=== PATIENT | male | born 1950 | race Caucasian/White ===

== ENCOUNTER → 2017-10-29 05:38 | Outpatient (CLI) | payer MEDICARE, SELFPAY ==
[2017-09-25 10:59] VITALS: BP 120/90; PULSE 65; RESP 16; TEMP 36.4; O2SAT 93; BMI 33.1
--- NOTE | 2017-09-25 11:05 | SDCEKG_ITS ---
Test Reason : Blood Pressure : / mmHG Vent. Rate : 062 BPM Atrial Rate : 062 BPM P-R Int : 160 ms QRS Dur : 090 ms QT Int : 464 ms P-R-T Axes : 004 -50 044 degrees QTc Int : 470 ms Normal sinus rhythm Left anterior fascicular block Abnormal ECG Confirmed by NIKITA GALVAN, GERMAIN ([id number]), multimedia editor MILLIE BLANK ([id number]) on 09/27/2017 1:29:42 PM Referred By: Rafael Canada Confirmed By:GERMAIN SHELTON MD
== END ==
PROVIDERS: Family Provider Internal Medicine; PCP Internal Medicine; Visit Provider Otolaryngology
DX: Z01.818 Encounter for other preprocedural examination (principal)

== ENCOUNTER 2018-02-26 22:37 | Inpatient (IN) | payer MEDICARE, SELFPAY ==
[2018-02-26 22:39] VITALS: BP 169/108; PULSE 96; RESP 18; TEMP 37.2; O2SAT 92; BMI 34.3
--- NOTE | 2018-02-26 22:57 | EKG12_ITS ---
Test Reason : CP Blood Pressure : / mmHG Vent. Rate : 082 BPM Atrial Rate : 082 BPM P-R Int : 152 ms QRS Dur : 090 ms QT Int : 398 ms P-R-T Axes : 065 -60 065 degrees QTc Int : 464 ms Normal sinus rhythm Left anterior fascicular block Low voltage QRS (limb leads) Abnormal ECG Confirmed by NIKITA GALVAN, GERMAIN ([id number]), restaurant expeditor MILLIE BLANK ([id number]) on 02/28/2018 1:31:42 PM Referred By: IMAN Confirmed By:GERMAIN SHELTON MD
--- NOTE | 2018-02-26 22:58 | ED.VISSUMM ---
- ER Visit Summary Date of Service: 02/26/18 Chief Complaint: Chest pain History of Present Illness: The patient is a 67 M presenting for chest pain. He states this started around 7 PM. Pain is intermittent. He states it is worsened with exertion, cough, and deep breathing. He states currently he has 0 out of 10 pain. At its worst it is 8 out of 10. He had a bronchoscopy today at [facility] per Dr. Cueva. He has a chronic cough. He has history of hypercholesterolemia. History of non-Hodgkin's lymphoma. Physical Examination: Vitals are stable. Patient is afebrile. Alert no acute distress. HEENT exam is unremarkable. Neck is supple. Lungs are diminished bilaterally. Heart is regular rate and rhythm. Abdomen is soft nontender nondistended. Extremities are unremarkable. Skin is warm and dry. No focal neurologic deficit. Remainder of exam is unremarkable. Emergency Department Course and Treatment: Patient was given aspirin. EKG is sinus rate of 82 with no acute ischemic changes. Chest x-ray shows a right-sided pneumothorax approximately 50%. CBC shows a white count of 11.3, platelets 146. Chemistries unremarkable. Troponin is negative. Patient was consented for pigtail catheter placement. Area was prepped and draped in sterile fashion. Lidocaine was used to locally anesthetize the area. Pigtail catheter was placed. Patient had improvement of his symptoms. Discussed with hospitalist for admission. Disposition: Admission Impression: Right sided Pneumothorax This note was generated with [employer] dictation software. It may contain incorrect words, spelling, and punctuation that were not noted in review of the chart prior to signing ED Disposition - Plan for ED Patient: Chief Complaint: Chest Pain Referrals: Andres Scruggs MD [Primary Care Provider] -
--- NOTE | 2018-02-26 23:00 | RAD_ITS ---
STUDY: X-RAY CHEST REASON FOR EXAM: Male, 67 years old. Shortness of breath and chest pain. TECHNIQUE: 1 view COMPARISON: None. FINDINGS: There is a right pneumothorax, 50% with substantial atelectasis of the right lung. The left lung is expanded and clear. Negative for pleural effusion. Normal size heart. Normal mediastinum and viral. Normal visualized pulmonary arteries. There is atherosclerotic calcification of the aortic arch with tortuosity. There is degenerative osteoarthritis of the bilateral shoulders. Negative for visualized rib fracture. There is no demonstrated abnormality of the visualized soft tissue structures of the upper abdomen. RAD/Chest 1 View (Portable) IMPRESSION: Acute right pneumothorax, at least 50% with substantial atelectasis of the right lung. Negative for pleural effusion. Left lung expanded and clear. The mediastinum is not substantially shifted. The right diaphragm is not flattened and the intercostal spaces are symmetric. N.B. : The above information has been verbally conveyed by Ana Lilia Luo MD to Dr. Celaya, Covering Physician, on 02/26/2018 23:24:29 (ET). Electronically Signed: Ana Lilia Luo MD at 23:24 EDT , Service support ,
--- NOTE | 2018-02-26 23:01 | ED.DCSUM_ITS ---
- ER Visit Summary Date of Service: 02/26/18 Chief Complaint: Chest pain History of Present Illness: The patient is a 67 M presenting for chest pain. He states this started around 7 PM. Pain is intermittent. He states it is worsened with exertion, cough, and deep breathing. He states currently he has 0 out of 10 pain. At its worst it is 8 out of 10. He had a bronchoscopy today at [facility] per Dr. Cueva. He has a chronic cough. He has history of hypercholesterolemia. History of non-Hodgkin's lymphoma. Physical Examination: Vitals are stable. Patient is afebrile. Alert no acute distress. HEENT exam is unremarkable. Neck is supple. Lungs are diminished bilaterally. Heart is regular rate and rhythm. Abdomen is soft nontender nondistended. Extremities are unremarkable. Skin is warm and dry. No focal neurologic deficit. Remainder of exam is unremarkable. Emergency Department Course and Treatment: Patient was given aspirin. EKG is sinus rate of 82 with no acute ischemic changes. Chest x-ray shows a right- sided pneumothorax approximately 50%. CBC shows a white count of 11.3, platelets 146. Chemistries unremarkable. Troponin is negative. Patient was consented for pigtail catheter placement. Area was prepped and draped in sterile fashion. Lidocaine was used to locally anesthetize the area. Pigtail catheter was placed. Patient had improvement of his symptoms. Discussed with hospitalist for admission. Disposition: Admission Impression: Right sided Pneumothorax This note was generated with [employer] dictation software. It may contain incorrect words, spelling, and punctuation that were not noted in review of the chart prior to signing ED Disposition - Plan for ED Patient: Chief Complaint: Chest Pain Referrals: Andres Scruggs MD [Primary Care Provider] -
[2018-02-26] MEDS: Aspirin 81 MG TAB.CHEW 324 MG PO (23:10)
[2018-02-26 23:23] VITALS: PULSE 85; RESP 34; O2SAT 94
[2018-02-27] VITALS (21 sets, daily range): BP systolic 135–177; BP diastolic 78–111; PULSE 60–81; RESP 14–23; TEMP 36.7–37; O2SAT 90–97; BMI 34.2; BMI 34.3
--- NOTE | 2018-02-27 00:30 | RAD_ITS ---
STUDY: X-RAY CHEST REASON FOR EXAM: Male, 67 years old. Chest tube placement. TECHNIQUE: Single AP portable view of the chest. COMPARISON: 02/26/2018. FINDINGS: There is a small caliber chest tube with its tip overlying the lower right lung field. There is a small right pneumothorax, which is markedly improved from previous study. The lungs are clear and expanded. There is no demonstrated pleural effusion.. Normal size heart. Normal mediastinum and viral. Normal visualized pulmonary arteries. There is atherosclerotic calcification of the aortic arch with tortuosity. Normal visualized thoracic spine. Normal visualized ribs, clavicles, and shoulders. There is no demonstrated abnormality of the visualized soft tissue structures of the upper abdomen. RAD/Chest 1 View (Portable) IMPRESSION: Status post chest tube placement, with adequate position. Small right pneumothorax, markedly improved from previous study. Electronically Signed: Ozzie Faustin MD at 1:56 EDT , Service support ,
--- NOTE | 2018-02-27 00:50 | ED.RN ---
ABRAN RN AND CALEB RN ASSISTED DR. VALERIO WITH CHEST TUBE PROCEDURE. CHEST TUBE PLACED. SECURED WITH SUTURES. VASELINE GAUZE, GAUZE 4X4'S AND TELFA TAPE. PT IN XRAY TO VERIFY PLACEMENT.
[2018-02-27 01:15] LABS: Absolute Lymphocyte Count 1.23 X10^3/ul (0.83-4.51); Absolute Neutrophil Count 8.9 X10^3/uL (2.0-7.7); Basophil# 0.02 X10^3/uL; Basophil% 0.2 % (0-1); Eosinophil# 0.37 X10^3/uL; Eosinophils% 3.3 % (0-5); Hematocrit 45.6 % (40-54); Hemoglobin 15.2 g/dl (13.0-16.5); Lymphocyte # 1.23 X10^3/ul (4.0); Lymphocyte % 10.9 % (19-41); Mean Corp Hgb Conc 33.3 g/gl (32-36); Mean Corpuscular Hgb 33.1 pg (27.0-32.0); Mean Corpuscular Volume 99.3 fL (80-94); Mean Platelet Vol. 11.9 fl (6.2-12.0); Monocyte# 0.75 X10^3/uL; Monocyte% 6.6 % (0-10); Neutrophil # 8.89 X10^3/uL (2.7-7.7); Neutrophil % 78.7 % (47-70); Platelet Count 146 K/mm3 (150-450); RBC Distribution Width CV 12.8 % (11.6-14.6); RBC Distribution Width SD 46.4 fl (35.1-43.9); Red Blood Count 4.59 M/mm3 (4.6-6.2); White Blood Count 11.3 K/mm3 (4.4-11.0)
[2018-02-27 01:16] LABS: POSITIVE COUNT NO; POSITIVE DIFFERENTIAL NO; POSITIVE MORPHOLOGY NO
[2018-02-27 01:42] LABS: Anion Gap 7 (5-15); BUN 17 mg/dL (7-18); BUN/Creat Ratio 19.9 RATIO (10-20); Calcium,Total 8.1 mg/dL (8.5-10.1); Chloride 104 mmol/L (98-107); Creatinine, Serum 0.85 mg/dL (0.70-1.30); EST Glomerular Filtration Rate 95 mL/min (>60); Est Glom Filt Rate - Afr Amer 115 mL/min (>60); Estimated Creatinine Clearance 97.92 ml/min; Glucose 96 mg/dL (74-106); Potassium 4.1 mmol/L (3.5-5.1); Sodium Level 136 mmol/L (136-145)
--- NOTE | 2018-02-27 03:30 | NURSING ---
Karthik ed rn aware pt ok for floor.
--- NOTE | 2018-02-27 03:43 | PCM.HP.STD ---
History of Present Illness Date of Admission: 02/27/18 Chief Complaint: Chest pain and increased shortness of breath ?1 day The patient is a 67 year old M with a significant history of hypothyroidism; and Hodgkin's lymphoma status post chemotherapy who presented with chest pain and increased shortness of breath ?1 day. Patient reports sustaining lung damage/scar tissue after chemotherapy with bleomycin for his Hodgkin's lymphoma. He reports chronic shortness of breath for which reason he had a bronchoscopy on the day of his presentation. A few hours after the bronchoscopy patient had increased cough above his baseline, chest pain and profuse coughing. Because of the symptoms stated above he proceeded to the emergency department where a chest x-ray showed a 50% collapse of his right lung. A chest tube was inserted at emergency department.] Past Medical History Medical History: Medical History (Last Updated 02/27/18 @ 03:51 by Jaswant Jang MD) Hodgkin's lymphoma C81.90 Hypothyroidism E03.9 Allergies bleomycin Allergy (Verified 02/26/18 22:48) Other Home Medications: Ambulatory Orders Medication Instructions Recorded Aspirin E.C. [Ecotrin] 81 mg PO DAILY@0800 09/25/17 Atorvastatin Calcium [Lipitor] 20 mg PO QHS 09/25/17 Levothyroxine [Synthroid] 25 mcg PO DAILY 09/25/17 Lives: Spouse/ Significant Other Smoking Status: Never smoker Tobacco Use: Non-smoker Alcohol: Rare Drugs: None - *Family History Maternal History Items: No pertinent history Paternal History Items: No pertinent history Review of Systems Constitutional: Denies: Chills, Fever, Weight Change Eyes: Denies: Blurred vision, Pain HEENT: Denies: Head Aches, Sinus Congestion, Sinus Drainage Cardiovascular: Reports: Chest Pain Respiratory: Reports: Cough, Shortness of Breath Gastrointestinal: Denies: Abdominal Pain, Nausea, Vomiting Genitourinary: Denies: Dysuria Musculoskeletal: Denies: Joint Pain, Joint Tenderness Skin: Denies: Rash, Wounds Neurological: Denies: Numbness, Tingling, Focal weakness Psychiatric: Denies: Anxiety, Depression, Homicidal Ideations, Suicidal Ideations Endocrine: Denies: Change in Body Habitus, Polyuria Hematologic/ Lymphatic: Denies: Easy Bruising, Easy Bleeding VTE Information - Inpt Only VTE Present on Admission: No VTE Mechan Device Prophylaxis: None VTE Pharm Prophylaxis ordered?: Yes - Physical Exam General: Alert, Oriented x3, Cooperative HEENT: Atraumatic, PERRLA, EOMI, Normocephalic Neck: Supple, No JVD, Negative Carotid Bruits Lungs: Wheezes, - - Chest tube at right side and covered with dressing. Cardiovascular: Regular rate, No murmurs Abdomen: Bowel Sounds Present, Soft, Non Tender Extremities: No clubbing Skin: No rashes, No breakdown Musculoskeletal: No Tenderness to Palpation of Joints or Extremities Lymphatic: No Cervical, Supraclavicular, or Inguinal Adenopathy Neurological: Cranial nerves II-XII grossly intact Psych/Mental Status: Normal Affect, Appropriate Vital Signs Temp Pulse Resp BP Pulse Ox 99 F 60 14 136/98 H 94 02/26/18 22:39 02/27/18 03:09 02/27/18 03:09 02/27/18 03:09 02/27/18 03:09 Assessment/Plan The patient is a 67 year old M with a significant history of hypothyroidism; and Hodgkin's lymphoma status post chemotherapy who presented with chest pain and increased shortness of breath and found to have right pneumothorax. Right pneumothorax Status post chest tube with expansion of lungs. Maintain chest tube in place at this time with low wall suction The patient was admitted for observation. Repeat chest x-ray in a.m. Chronic shortness of breath Patient reports chronic shortness of breath for which reason bronchoscopy was done. Patient reported breathing treatment has not helped in the past. Because of wheezing will prescribe DuoNeb as needed. Hypothyroidism Continue home Synthroid DVT prophylaxis subcutaneous heparin. Code Visit OBSV E&M: 28696 Initial observation care L2
[2018-02-27] MEDS: Levothyroxine 25 MCG TABLET PO (05:02)
[2018-02-27] MEDS: Ipratropium/Albuterol Sulfate 3 ML AMPUL.NEB INHALATION ×2 (05:13→19:35)
--- NOTE | 2018-02-27 08:05 | RAD_ITS ---
STUDY: X-RAY CHEST REASON FOR EXAM: Male, 67 years old. Worsening shortness of breath TECHNIQUE: 2 AP portable views, 2 views needed to include entirety of both lungs COMPARISON: Earlier this morning FINDINGS: EKG leads overlie the chest Significant increase in size of the previously noted right pneumothorax. Pneumothorax affects approximately 50% of the right hemithorax with slight [id number] midline shift. The right lung shows compressive atelectatic changes. The left lung shows chronic interstitial changes without a superimposed process and is normally expanded. Small caliber chest tube appears unchanged in position compared to the previous study. Normal size heart. Normal mediastinum and viral. Normal visualized pulmonary arteries. There is atherosclerotic calcification of the aortic arch with tortuosity. There are diffuse degenerative changes of the visualized thoracic spine. Normal visualized ribs, clavicles, and shoulders. There is no demonstrated abnormality of the visualized soft tissue structures of the upper abdomen. RAD/Chest 1 View (Portable) IMPRESSION: Significant increase in the size of a previously noted right pneumothorax. Now affects approximately 50% of the right hemithorax with slight right to left midline shift. Visualized right lung shows compressive atelectasis Left lung shows chronic interstitial changes without a superimposed process Small caliber right-sided chest tube remains in position within the right hemithorax. N.B. : The above information has been verbally conveyed by David Schwartz MD to [facility]- In-Patient RN, on 02/27/2018 09:08:41 (ET). Electronically Signed: David Schwartz MD at 9:08 EDT , Service support ,
--- NOTE | 2018-02-27 08:36 | CON.PCM_ITS ---
Reason for Consult Date of Consultation: 02/27/18 History of Present Illness: The patient is a 67 year old M who earlier today underwent a bronchoscopy for history of pulmonary fibrosis secondary to treatment for Hodgkin's lymphoma. the patient presented to [facility] emergency department last night. Chest x-ray demonstrated a significant right pneumothorax. A pneumocath was placed. post placement chest x-ray from 12:30 AM demonstrated good expansion of the lung with a small residual pneumothorax. I was consulted for management of the pneumothorax catheter. I was contacted this morning for consultation. The patient was stable. I had asked that a follow-up chest x-ray being obtained. This follow-up chest x-ray demonstrated recurrence of the pneumothorax. I presented to the bedside for evaluation and planned for replacement of the pneumocath tube. the patient has a past medical history of Hodgkin's lymphoma, obstructive sleep apnea, hyperthyroidism, hyperlipidemia. Asthma, diverticulosis and a thyroid nodule. He has pulmonary fibrosis, felt to be secondary to treatment for his Hodgkin's lymphoma.. his previous surgical history is only significant for colonoscopies, tonsillectomy as a child, ORIF of a tibial fracture, an recent bronchoscopy, along with bronchoscopy and mediastinoscopy in 2007. He notes allergies to bleomycin and dust. His medications are Synthroid, Lipitor, 81 mg aspirin and Dulera Past Medical History Medical History: Medical History (Last Updated 02/27/18 @ 03:51 by Jaswant Jang MD) Hodgkin's lymphoma C81.90 Hypothyroidism E03.9 Allergies bleomycin Allergy (Verified 02/26/18 22:48) Other Home Medications: Ambulatory Orders Medication Instructions Recorded Aspirin E.C. [Ecotrin] 81 mg PO DAILY@0800 09/25/17 Atorvastatin Calcium [Lipitor] 20 mg PO QHS 09/25/17 Levothyroxine [Synthroid] 25 mcg PO DAILY 09/25/17 Lives: Spouse/ Significant Other Smoking Status: Never smoker Tobacco Use: Non-smoker Alcohol: Rare Drugs: None - *Family History Maternal History Items: No pertinent history Paternal History Items: No pertinent history Review of Systems Constitutional: Denies: Chills, Fever, Weight Change HEENT: Denies: Head Aches, Sinus Congestion, Sinus Drainage Cardiovascular: Denies: Chest Pain, Palpitations Respiratory: Reports: Pleuritic Pain, Shortness of Breath Gastrointestinal: Denies: Abdominal Pain, Nausea, Vomiting Genitourinary: Denies: Dysuria Musculoskeletal: Denies: Joint Pain, Joint Tenderness Skin: Denies: Rash, Wounds Neurological: Denies: Numbness, Tingling, Focal weakness Psychiatric: Denies: Anxiety, Depression, Homicidal Ideations, Suicidal Ideations Hematologic/ Lymphatic: Denies: Easy Bruising, Easy Bleeding - Physical Exam General: Alert, Oriented x3 Lungs: Diminished - breath sounds at the right upper lobe and tympanic to percussion. Prior to replacement of chest tube. Post chest tube placement, symmetric breath sounds Cardiovascular: Regular rate, Regular Rhythm Abdomen: Bowel Sounds Present, Soft, Non Tender Vital Signs Temp Pulse Resp BP Pulse Ox 98.3 F 66 20 H 156/83 H 90 02/27/18 03:55 02/27/18 07:06 02/27/18 05:00 02/27/18 04:53 02/27/18 05:00 Oxygen Flow Rate (L/min) 3 Oxygen Delivery Method Nasal Cannula Weight: 117.9 kg Body Mass Index (BMI) 34.2 Intake and Output for Last 24 Hours 02/25/18 02/26/18 02/27/18 23:59 23:59 23:59 Intake Total 50 / 50 Output Total 0 / 0 Balance 50 / 50 Assessment/Plan displaced pneumocath tube-pneumocath tube replaced dictated under separate cover Postprocedure chest x-ray demonstrates good expansion of the lung. The catheter is in good location in the Pleur-evac as titling. I plan to maintain him on 20 cm water suction, at least overnight. We will place him on waterseal. If the chest x-ray looks nicely expanded in the morning. Given the fact of the patient's degree of pulmonary fibrosis and therefore likely somewhat decreased lung compliance. I would plan to leave him on waterseal for 24 hours tomorrow with plan for removal of the catheter Saturday chest x -ray still demonstrates nicely expanded lung. I will be out of town Saturday afternoon of Saturday. Dr. Broussard will cover the patient in my absence after Saturday.
[2018-02-27] MEDS: Aspirin E.C. 81 MG Tablet PO (08:44)
--- NOTE | 2018-02-27 12:26 | RAD_ITS ---
STUDY: X-RAY CHEST REASON FOR EXAM: Male, 67 years old. Shortness of breath, history of pneumothorax with chest tube adjustment TECHNIQUE: Single AP portable view of the chest. COMPARISON: Earlier today FINDINGS: EKG leads overlie the chest. Small caliber chest tube is now more prominently noted in the lower right hemithorax. The right lung has now reexpanded. Previously noted pneumothorax no longer identified. The right lung is also normally expanded with resolution of the previously noted compressive atelectasis. There are chronic interstitial changes in both lung kelly with prominent bilateral pulmonary arteries. No organized infiltrate or effusion. Normal mediastinum and viral. Normal visualized pulmonary arteries. There is atherosclerotic calcification of the aortic arch with tortuosity. There are diffuse degenerative changes of the visualized thoracic spine. Normal visualized ribs, clavicles, and shoulders. There is no demonstrated abnormality of the visualized soft tissue structures of the upper abdomen. RAD/Chest 1 View (Portable) IMPRESSION: Resolution of the previously noted right pneumothorax. Small caliber right-sided chest tube now much more conspicuous in the lower right hemithorax. There is no mediastinal shift. There is a small amount of subcutaneous emphysema. Resolution of previously described compressive atelectasis in the right lung. Both lungs are now normally expanded with chronic interstitial changes. Prominence to the proximal pulmonary arteries Degenerative bony changes Electronically Signed: David Schwartz MD at 13:11 EDT , Service support ,
--- NOTE | 2018-02-27 14:07 | CASEMGMT ---
SEE RN CM ASSESSMENT LINK. DC PLAN: Home. -No DME use per pt. Is independent, drives. also in room. Denies needs on dc. Drives, has prescription coverage. no needs identified. Young BLAKEN RN ACM
[2018-02-27] MEDS: Heparin Injection (Vial) 5,000 UNIT/ML VIAL 5000 UNIT SC ×2 (15:52→21:20)
--- NOTE | 2018-02-27 17:56 | OP.PCM_ITS ---
Report of Operation Date of Procedure: 02/27/18 Pre-Operative Diagnosis: recurrent right pneumothorax Post-Operative Diagnosis: recurrent right pneumothorax Surgery/Procedure Performed:: placement of right pneumocath metal hardener: None Type of Anesthesia:: Local Specimen's removed: none Description of Procedure: the patient was on x-ray and on clinical examination to have a recurrent right pneumothorax. The catheter was in place appeared to be in good location. It did not seem to been pulled out significantly, but there was no tidaling with breathing, and an no moisture in the tube. the patient was consented. The old pneumocath was removed with traction and the suture cut. The right thoracic area was prepped and draped in the usual fashion with chlorhexidine/DuraPrep. local anesthetic 1% lidocaine was injected in the skin and deep riding over the rib just posterior to the previously placed catheter at about the mid axillary line level of the nipple. A pneumocath was then inserted over needle into the thoracic space with venting of air. The catheter was slid off the needle attached to the tubing and secured to a Pleur-evac. The site was covered with an OpSite. All joints were taped and the Pleur-evac taped to his hip. There was initial good doubling through the Pleur-evac with the patient having pruritic change when the lung was fully expanded. Postprocedure chest x-ray was obtained which demonstrated good expansion of the lung and good positioning of the catheter.
[2018-02-27] MEDS: Metoprolol Tartrate 5 MG/5 ML Vial IV (18:26)
[2018-02-27] MEDS: Atorvastatin Calcium 20 MG Tablet PO (21:21)
[2018-02-28] VITALS (19 sets, daily range): BP systolic 120–160; BP diastolic 67–95; PULSE 52–85; RESP 16–20; TEMP 36.2–37.2; O2SAT 93–99; BMI 34.2
--- NOTE | 2018-02-28 05:15 | RAD_ITS ---
STUDY: X-RAY CHEST REASON FOR EXAM: Male, 67 years old. Chest pain, history of pneumothorax with chest tube TECHNIQUE: Single AP portable view of the chest. COMPARISON: Yesterday FINDINGS: Although the small caliber chest tube remains in position within the inferior right hemithorax there has been a dramatic increase in size of the previously noted right pneumothorax. On the previous study there was no visualized pneumothorax but on the current study pneumothorax has returned and affects approximately 25% of the right hemithorax. There is no mediastinal shift. There has been increase in the amount of subcutaneous emphysema. Lungs are otherwise clear. Normal size heart. Normal mediastinum and viral. Normal visualized pulmonary arteries. Normal visualized aortic arch and descending thoracic aorta. Normal visualized thoracic spine. Normal visualized ribs, clavicles, and shoulders. There is no demonstrated abnormality of the visualized soft tissue structures of the upper abdomen. RAD/Chest 1 View (Portable) IMPRESSION: Previous noted right pneumothorax has returned. It affects approximately 25% of the right hemithorax without mediastinal shift. Small caliber chest tube is still seen in the inferior right hemithorax. Increase in amount of subcutaneous emphysema in the right chest wall suggests air leak Lung kelly are otherwise clear. N.B. : The above information has been verbally conveyed by David Schwartz MD to [facility]- In-Patient RN, on 02/28/2018 07:56:18 (ET). Electronically Signed: David Schwartz MD at 7:56 EDT , Service support ,
[2018-02-28] MEDS: Levothyroxine 25 MCG TABLET PO (05:36)
[2018-02-28] MEDS: Heparin Injection (Vial) 5,000 UNIT/ML VIAL 5000 UNIT SC (05:36)
[2018-02-28] MEDS: Ipratropium/Albuterol Sulfate 3 ML AMPUL.NEB INHALATION ×2 (07:24→19:56)
--- NOTE | 2018-02-28 07:55 | PCM.PROGNOTE ---
Subjective: Chief complaint: Follow-up after admission for right pneumothorax. Patient seen and examined. No acute events overnight. He denies any symptoms this morning. Denied chest pain or shortness of breath. Denied abdominal pain, nausea vomiting. His blood pressure has been on the higher side, other vital signs are stable, pulse ox is maintained on 3 L of oxygen. - Physical Exam General: Alert, Oriented x3, Cooperative, No apparent distress HEENT: Atraumatic, PERRLA, EOMI, Normocephalic Oral: Moist Mucosa, No Gingival or Mucosal Lesions/ Ulcerations Neck: Supple, No JVD, Negative Carotid Bruits, Trachea Midline, Thyroid Normal Size and Texture Lungs: Clear to auscultation, No rhonchi, No wheeze, No rales, Diminished, - - Decreased breath sounds on the right lung, otherwise clear. Cardiovascular: Regular rate, Regular Rhythm, Normal S1, Normal S2, PMI Normal Abdomen: Bowel Sounds Present, Soft, Non Tender, Non-Distended, No Hepato-splenomegaly Extremities: No clubbing, No cyanosis, No edema Skin: No rashes, No breakdown Lymphatic: No Cervical, Supraclavicular, or Inguinal Adenopathy Neurological: Cranial nerves II-XII grossly intact, Motor Exam 5/5 strength throughout Psych/Mental Status: Normal Affect, Appropriate, Alert and oriented to time, place, person, mood and affect Vital Signs Temp Pulse Resp BP Pulse Ox 99.0 F 64 20 H 156/90 H 94 02/28/18 03:41 02/28/18 06:56 02/28/18 03:41 02/28/18 03:41 02/28/18 03:41 Oxygen Flow Rate (L/min) 3 Oxygen Delivery Method Nasal Cannula Weight: 259 lb 14.8 oz Body Mass Index (BMI) 34.2 Intake and Output for Last 24 Hours 02/26/18 02/27/18 02/28/18 23:59 23:59 23:59 Intake Total 1230 / 1230 150 / 150 Output Total 925 / 925 625 / 625 Balance 305 / 305 -475 / -475 Medical Necessity - Tobacco Use Smoking Status: Never smoker Tobacco Use: Non-smoker Assessment/Plan This is a 58 years old male patient presented to the emergency room because of chest pain and cough on the same day 1 he had bronchoscopy done for evaluation for pulmonary fibrosis and he was found to have right-sided pneumothorax. #1 right-sided pneumothorax: Status post reinsertion of chest you that was displaced. Chest tube was replaced yesterday and chest x-ray afterwards revealed complete resolution of the pneumothorax. Chest x-ray from this morning revealed recurrent pneumothorax. Patient's respiratory status is stable, pulse ox is maintained on 3 L. Blood pressure slightly elevated, otherwise vital signs are stable. General surgery in the case. #2 chronic shortness of breath/cough: Patient has been going under evaluation for those symptoms as outpatient including bronchoscopy which was done on the day of admission. At this time, respiratory status is stable, patient requiring oxygen. Patient will need to follow-up with his wet suit gluer as outpatient. #3 hypothyroidism: Continue levothyroxine. #4 hyperlipidemia: Continue statins. #5 Hodgkin's lymphoma: Status post chemotherapy. Stable at this time. #6 DVT prophylaxis: Subcu heparin. This note was generated with [employer] dictation software. It may contain incorrect words, spelling, and punctuation that were not noted in checking the note before signing.
--- NOTE | 2018-02-28 08:02 | PN_ITS ---
Subjective: Chief complaint: Follow-up after admission for right pneumothorax. Patient seen and examined. No acute events overnight. He denies any symptoms this morning. Denied chest pain or shortness of breath. Denied abdominal pain , nausea vomiting. His blood pressure has been on the higher side, other vital signs are stable, pulse ox is maintained on 3 L of oxygen. - Physical Exam General: Alert, Oriented x3, Cooperative, No apparent distress HEENT: Atraumatic, PERRLA, EOMI, Normocephalic Oral: Moist Mucosa, No Gingival or Mucosal Lesions/ Ulcerations Neck: Supple, No JVD, Negative Carotid Bruits, Trachea Midline, Thyroid Normal Size and Texture Lungs: Clear to auscultation, No rhonchi, No wheeze, No rales, Diminished, - - Decreased breath sounds on the right lung, otherwise clear. Cardiovascular: Regular rate, Regular Rhythm, Normal S1, Normal S2, PMI Normal Abdomen: Bowel Sounds Present, Soft, Non Tender, Non-Distended, No Hepato- splenomegaly Extremities: No clubbing, No cyanosis, No edema Skin: No rashes, No breakdown Lymphatic: No Cervical, Supraclavicular, or Inguinal Adenopathy Neurological: Cranial nerves II-XII grossly intact, Motor Exam 5/5 strength throughout Psych/Mental Status: Normal Affect, Appropriate, Alert and oriented to time, place, person, mood and affect Vital Signs Temp Pulse Resp BP Pulse Ox 99.0 F 64 20 H 156/90 H 94 02/28/18 03:41 02/28/18 06:56 02/28/18 03:41 02/28/18 03:41 02/28/18 03:41 Oxygen Flow Rate (L/min) 3 Oxygen Delivery Method Nasal Cannula Weight: 259 lb 14.8 oz Body Mass Index (BMI) 34.2 Intake and Output for Last 24 Hours 02/26/18 02/27/18 02/28/18 23:59 23:59 23:59 Intake Total 1230 / 1230 150 / 150 Output Total 925 / 925 625 / 625 Balance 305 / 305 -475 / -475 Medical Necessity - Tobacco Use Smoking Status: Never smoker Tobacco Use: Non-smoker Assessment/Plan This is a 58 years old male patient presented to the emergency room because of chest pain and cough on the same day 1 he had bronchoscopy done for evaluation for pulmonary fibrosis and he was found to have right-sided pneumothorax. #1 right-sided pneumothorax: Status post reinsertion of chest you that was displaced. Chest tube was replaced yesterday and chest x-ray afterwards revealed complete resolution of the pneumothorax. Chest x-ray from this morning revealed recurrent pneumothorax. Patient's respiratory status is stable , pulse ox is maintained on 3 L. Blood pressure slightly elevated, otherwise vital signs are stable. General surgery in the case. #2 chronic shortness of breath/cough: Patient has been going under evaluation for those symptoms as outpatient including bronchoscopy which was done on the day of admission. At this time, respiratory status is stable, patient requiring oxygen. 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 #3 hypothyroidism: Continue levothyroxine. #4 hyperlipidemia: Continue statins. #5 Hodgkin's lymphoma: Status post chemotherapy. Stable at this time. #6 DVT prophylaxis: Subcu heparin. This note was generated with [employer] dictation software. It may contain incorrect words, spelling, and punctuation that were not noted in checking the note before signing.
--- NOTE | 2018-02-28 08:04 | PCM.PN.SRG ---
Subjective: no complaints - Physical Exam General: Alert, Oriented x3 Lungs: Diminished - right apex, - - CT without tidaling - pneumocath disconnected - blood clot aspirated from catheter - bubbling in pleuravac again Vital Signs Temp Pulse Resp BP Pulse Ox 99.0 F 64 20 H 156/90 H 94 02/28/18 03:41 02/28/18 06:56 02/28/18 03:41 02/28/18 03:41 02/28/18 03:41 Oxygen Flow Rate (L/min) 3 Oxygen Delivery Method Nasal Cannula Weight: 117.9 kg Body Mass Index (BMI) 34.2 Intake and Output for Last 24 Hours 02/26/18 02/27/18 02/28/18 23:59 23:59 23:59 Intake Total 1230 / 1230 150 / 150 Output Total 925 / 925 625 / 625 Balance 305 / 305 -475 / -475 Medical Necessity - Tobacco Use Smoking Status: Never smoker Tobacco Use: Non-smoker Assessment/Plan displaced pneumocath tube-pneumocath tube replaced dictated under separate cover Postprocedure chest x-ray demonstrates good expansion of the lung. The catheter is in good location in the Pleur-evac as titling. I plan to maintain him on 20 cm water suction, at least overnight. This morning. CXR again partial PTX. catheter with clot - seeming to function again and improved breath sounds. Will plan for CXR at 8:30 - if not completed expanded, will take to OR for chest tube placement.
[2018-02-28] MEDS: 0.9% NaCl Peripheral Flush Adult/Peds IV ×3 (08:16→21:51)
--- NOTE | 2018-02-28 08:35 | RAD_ITS ---
STUDY: X-RAY CHEST REASON FOR EXAM: Male, 67 years old. Chest pain, history of pneumothorax and repositioning of chest tube. TECHNIQUE: Single AP portable view of the chest. COMPARISON: Earlier today FINDINGS: EKG leads overlie the chest. Since the previous study, there has been placement of another small caliber chest tube into the right hemithorax. The tip of this chest tube is noted in the upper aspect of the right hemithorax. The previously described pneumothorax has decreased in size since the previous study but still occupies approximately 15% of the right hemithorax. There is no mediastinal shift. Stable appearance of subcutaneous emphysema in the right chest wall. Right lung now shows some compressive atelectasis left lung is clear. There is no demonstrated pleural abnormality. Normal size heart. Normal mediastinum and viral. Normal visualized pulmonary arteries. Normal visualized aortic arch and descending thoracic aorta. Normal visualized thoracic spine. Normal visualized ribs, clavicles, and shoulders. There is no demonstrated abnormality of the visualized soft tissue structures of the upper abdomen. RAD/Chest 1 View (Portable) IMPRESSION: Despite the presence of a new small caliber chest tube in the right hemithorax there remains a right pneumothorax. The pneumothorax has diminished since the previous study, it now occupies approximately 15% of the right hemithorax without mediastinal shift. Compressive atelectatic changes noted in the right lung since the previous study Left lung is clear. Electronically Signed: David Schwartz MD at 9:23 EDT , Service support ,
--- NOTE | 2018-02-28 10:05 | NURSING ---
Report called to PRISCA Bolden. Patient off floor for right chest tube insertion. Aware of previous reaction to belomycin. Also aware that patient had 5000 units of heparin this AM. Dr. Stroud also aware. Will monitor for patient return.
--- NOTE | 2018-02-28 11:20 | PCM.OPRPT ---
Report of Operation Date of Procedure: 02/27/18 Pre-Operative Diagnosis: recurrent right pneumothorax Post-Operative Diagnosis: recurrent right pneumothorax Surgery/Procedure Performed:: placement of right chest tube section 8 property manager: None Type of Anesthesia:: Local MAC Anesthesiologist: Teddy Duncan ASA3 Specimen's removed: none Estimated Blood Loss (mL): MINIMAL Fluids Replaced: 300 Description of Procedure: sign in was performed verifing patient, site, planned procedure. The old pneumocath was removed with traction. The right thoracic area was prepped and draped in the usual fashion with chlorhexidine/DuraPrep. local anesthetic 1% lidocaine was injected in the skin and deep riding over the rib at about the mid axillary line level of the nipple. THe thoracic space was entered with a freddy. a 28F chest tube was placed under direct visualization and inserted to 18cm. The chest tube was secured to a Pleur-evac. THe skin incision was closted and the tube secureed with an 0 neuralon. The site was covered with an OpSite. All joints were taped and the Pleur-evac taped to his hip. The patient was brought to recovery in stable condition. Postprocedure chest x-ray was obtained which demonstrated good expansion of the lung and good positioning of the catheter. BAL from 02/26 in [place] - normal keisha 2000 CFU - Admit VTE Documentation VTE Present on Admission: No VTE Mechan Device Prophylaxis: SCD's
--- NOTE | 2018-02-28 11:40 | RAD_ITS ---
STUDY: X-RAY CHEST REASON FOR EXAM: Male, 67 years old. Shortness of breath, pneumothorax, chest tube placement TECHNIQUE: Single AP portable view of the chest. COMPARISON: Earlier today FINDINGS: EKG leads overlie the chest. Since the previous study, a large caliber chest tube is now been placed into the right hemithorax. Tip projects over the thoracic spine. Previous noted right pneumothorax has been reduced. There is no pneumothorax noted on the current study, there is no mediastinal shift. Chronic changes noted in both lung kelly. No organized infiltrate or effusion. Stable subcutaneous emphysema in the right chest wall. Normal size heart. Normal mediastinum and viral. Normal visualized pulmonary arteries. There is atherosclerotic calcification of the aortic arch with tortuosity. There are diffuse degenerative changes of the visualized thoracic spine. Normal visualized ribs, clavicles, and shoulders. There is no demonstrated abnormality of the visualized soft tissue structures of the upper abdomen. RAD/Chest 1 View (Portable) IMPRESSION: Previously noted right pneumothorax has been reduced after placement of a large caliber chest tube into the right hemithorax. Chronic interstitial changes in both lung kelly without a superimposed infiltrate or effusion. There is no mediastinal shift. Stable subcutaneous emphysema Electronically Signed: David Schwartz MD at 12:16 EDT , Service support ,
--- NOTE | 2018-02-28 12:27 | CT_ITS ---
STUDY: CT CHEST WITHOUT CONTRAST REASON FOR EXAM: Male, 67 years old. Chest pain, history of recurrent pneumothorax after bronchoscopy. RADIATION DOSAGE (If Supplied By Facility): CTDIvol = ( 20.00 ) mGy, DLP = ( 888.66 ) mGycm TECHNIQUE: Transaxial imaging was performed without the administration of intravenous contrast material. Multiplanar coronal and sagittal images were reformatted. Individualized dose optimization techniques were used for this CT. COMPARISON: Multiple recent chest x-rays FINDINGS: Lung windows show a very tiny right apical pneumothorax after placement of a large caliber chest tube into the right hemithorax. The chest tube is anteriorly and abutting the anterior mediastinum. There are chronic interstitial changes in the right lung with nonspecific pleural thickening there is a small right pleural effusion and associated atelectasis. The left lung shows chronic interstitial changes. There is diffuse subcutaneous emphysema in the right chest and neck. Soft tissue windows show normal-appearing thyroid gland. There are scattered subcentimeter axillary and mediastinal lymph nodes. Axial images 142 through 157 suggests air within the main pulmonary artery. Lytic cuts through the upper abdomen do not show a suspicious abnormality. CT/Chest without Contrast IMPRESSION: Very tiny right pneumothorax after a large caliber chest tube placement into the right hemithorax. Lung kelly show chronic interstitial changes in both lung kelly with nonspecific pleural thickening, small right pleural effusion with associated atelectasis. Extensive subcutaneous emphysema in the right chest both anteriorly and posteriorly extending into the neck Axial images 142 through 157 suggest air within the main pulmonary artery Degenerative bony changes Electronically Signed: David Schwartz MD at 13:10 EDT , Service support ,
[2018-02-28] MEDS: oxyCODONE 5 MG Tablet PO ×2 (15:39→21:44)
[2018-02-28] MEDS: Morphine 2 MG/ML Syringe 1 MG IV ×2 (17:02→21:48)
[2018-02-28] MEDS: Atorvastatin Calcium 20 MG Tablet PO (21:39)
[2018-03-01] VITALS (11 sets, daily range): BP systolic 143–161; BP diastolic 72–85; PULSE 61–72; RESP 16–18; TEMP 36.8–37; O2SAT 92–97
[2018-03-01] MEDS: Morphine 2 MG/ML Syringe 1 MG IV ×4 (01:59→20:43)
[2018-03-01] MEDS: 0.9% NaCl Peripheral Flush Adult/Peds IV ×5 (01:59→20:45)
[2018-03-01] MEDS: Levothyroxine 25 MCG TABLET PO (05:49)
[2018-03-01 06:00] LABS: Absolute Lymphocyte Count 1.31 X10^3/ul (0.83-4.51); Absolute Neutrophil Count 6.4 X10^3/uL (2.0-7.7); Basophil# 0.01 X10^3/uL; Basophil% 0.1 % (0-1); Eosinophil# 0.26 X10^3/uL; Hematocrit 45.7 % (40-54); Hemoglobin 14.7 g/dl (13.0-16.5); Lymphocyte # 1.31 X10^3/ul (4.0); Mean Corp Hgb Conc 32.2 g/gl (32-36); Mean Corpuscular Hgb 32.6 pg (27.0-32.0); Mean Corpuscular Volume 101.3 fL (80-94); Mean Platelet Vol. 12.2 fl (6.2-12.0); Monocyte# 0.72 X10^3/uL; Monocyte% 8.2 % (0-10); Neutrophil # 6.44 X10^3/uL (2.7-7.7); Neutrophil % 73.5 % (47-70); Platelet Count 131 K/mm3 (150-450); RBC Distribution Width SD 47.8 fl (35.1-43.9); Red Blood Count 4.51 M/mm3 (4.6-6.2); White Blood Count 8.8 K/mm3 (4.4-11.0)
[2018-03-01 06:11] LABS: Anion Gap 6 (5-15); BUN 18 mg/dL (7-18); BUN/Creat Ratio 23.8 RATIO (10-20); Calcium,Total 8.4 mg/dL (8.5-10.1); Chloride 105 mmol/L (98-107); Creatinine, Serum 0.76 mg/dL (0.70-1.30); EST Glomerular Filtration Rate 110 mL/min (>60); Est Glom Filt Rate - Afr Amer 133 mL/min (>60); Estimated Creatinine Clearance 109.51 ml/min; Glucose 115 mg/dL (74-106); Potassium 4.2 mmol/L (3.5-5.1); Sodium Level 140 mmol/L (136-145)
[2018-03-01 06:25] LABS: POSITIVE COUNT NO; POSITIVE DIFFERENTIAL NO; POSITIVE MORPHOLOGY NO
--- NOTE | 2018-03-01 06:25 | RAD_ITS ---
STUDY: X-RAY CHEST REASON FOR EXAM: Male, 67 years old. Follow-up pneumothorax TECHNIQUE: Single AP portable view of the chest. COMPARISON: 02/28/2018 FINDINGS: The right-sided chest tube is placed with the tip in medial aspect of the right anterior chest with the tip. There is a great deal of right side subcutaneous soft tissue edema. There is a persistent right apical pneumothorax which measured from the first rib to the top of the partially collapsed lung measures 2 cm. There is bilateral peripheral fibrotic change. There is mild cardiac enlargement. There is an enlarged appearance of the right hilum. Normal visualized pulmonary arteries. Normal visualized aortic arch and descending thoracic aorta. Normal visualized thoracic spine. Normal visualized ribs, clavicles, and shoulders. There is no demonstrated abnormality of the visualized soft tissue structures of the upper abdomen. RAD/Chest 1 View (Portable) IMPRESSION: The right-sided chest tube is overlying the right hilum/mediastinum. Persistent right apical pneumothorax. Right-sided subcutaneous gas. Prominence of the right hilum is likely associated with vascular prominence mild enlargement of the pulmonary artery. There is minimal right lower lobe atelectasis. Electronically Signed: Cleo Zamarripa MD at 8:34 EDT Tel , Service support ,
[2018-03-01] MEDS: Ipratropium/Albuterol Sulfate 3 ML AMPUL.NEB INHALATION ×2 (07:25→20:09)
--- NOTE | 2018-03-01 07:41 | PCM.PROGNOTE ---
Subjective: Chief complaint: Follow-up after admission for recurrent right pneumothorax. Patient seen and examined. No acute events overnight. Reported improvement of his shortness of breath and he is down to 2 L of oxygen. Complained of right lateral chest pain but pain medication is working. His vital signs are stable. Pulse ox is maintained on 2 L of oxygen. - Physical Exam General: Alert, Oriented x3, Cooperative, No apparent distress HEENT: Atraumatic, PERRLA, EOMI, Normocephalic Oral: Moist Mucosa, No Gingival or Mucosal Lesions/ Ulcerations Neck: Supple, No JVD, Negative Carotid Bruits, Trachea Midline, Thyroid Normal Size and Texture Lungs: No rhonchi, No wheeze, No rales, Diminished, - - Demonstrate sounds on the right lung, otherwise clear. Cardiovascular: Regular rate, Regular Rhythm, Normal S1, Normal S2, No murmurs Abdomen: Bowel Sounds Present, Soft, Non Tender, Non-Distended, No Hepato-splenomegaly Extremities: No clubbing, No cyanosis, No edema Skin: No rashes, No breakdown Lymphatic: No Cervical, Supraclavicular, or Inguinal Adenopathy Neurological: Cranial nerves II-XII grossly intact, Motor Exam 5/5 strength throughout Psych/Mental Status: Normal Affect, Appropriate Vital Signs Temp Pulse Resp BP Pulse Ox 98.2 F 62 18 144/77 H 95 03/01/18 03:00 03/01/18 03:00 03/01/18 03:00 03/01/18 03:00 03/01/18 03:00 Oxygen Flow Rate (L/min) 2 Oxygen Delivery Method Nasal Cannula Weight: 259 lb 14.8 oz Body Mass Index (BMI) 34.2 Intake and Output for Last 24 Hours 02/27/18 02/28/18 03/01/18 23:59 23:59 23:59 Intake Total 1230 / 1230 1650 / 1650 Output Total 925 / 925 1825 / 1825 265 / 265 Balance 305 / 305 -175 / -175 -265 / -265 Laboratory Tests Past 24 Hrs 03/01/18 03/01/18 05:26 05:26 WBC 8.8 RBC 4.51 L Hgb 14.7 Hct 45.7 MCV 101.3 H MCH 32.6 H MCHC 32.2 RDW 13.0 RDW Differential 47.8 H Plt Count 131 L MPV 12.2 H Immature Gran % (Auto) 0.200 Neut % (Auto) 73.5 H Lymph % (Auto) 15.0 L [place] % (Auto) 8.2 Eos % (Auto) 3.0 Baso % (Auto) 0.1 Absolute Neuts (auto) 6.4 Absolute Lymphs (auto) 1.31 Total Counted Not Reportable Sodium 140 Potassium 4.2 Chloride 105 Carbon Dioxide 29.0 Anion Gap 6 BUN 18 Creatinine 0.76 Estim Creat Clear Calc 109.51 Est GFR (MDRD) Af Amer 133 Est GFR (MDRD) Non-Af 110 BUN/Creatinine Ratio 23.8 H Glucose 115 H Calcium 8.4 L Medical Necessity - Tobacco Use Smoking Status: Never smoker Tobacco Use: Non-smoker Assessment/Plan This is a 58 years old male patient presented to the emergency room because of chest pain and cough on the same day 1 he had bronchoscopy done for evaluation for pulmonary fibrosis and he was found to have right-sided pneumothorax. #1 Recurrent right-sided pneumothorax: Status post insertion of chest you. Initially, pneumocath placed but pneumothorax recurred. His vital signs are stable, respiratory status is stable. Pulse ox is maintained on 2 L of oxygen. Repeat chest x-ray from today revealed full expansion of the right lung. CT scan chest without contrast done yesterday and revealed very tiny right pneumothorax, small right pleural effusion and extensive right chest subcutaneous emphysema. General surgery on the case. Plan to continue same treatment. #2 chronic shortness of breath/cough: Patient has been going under evaluation for those symptoms as outpatient including bronchoscopy which was done on the day of admission. At this time, respiratory status is stable, patient requiring oxygen at 2 L. Patient will need to follow-up with his shaft sinker as outpatient. #3 hypothyroidism: Continue levothyroxine. #4 hyperlipidemia: Continue statins. #5 Hodgkin's lymphoma: Status post chemotherapy. Stable at this time. #6 DVT prophylaxis: Subcu heparin. This note was generated with [employer] dictation software. It may contain incorrect words, spelling, and punctuation that were not noted in checking the note before signing. Code Visit Inpatient E&M: 20269 Subs Hosp L2
--- NOTE | 2018-03-01 07:46 | PN_ITS ---
Subjective: Chief complaint: Follow-up after admission for recurrent right pneumothorax. Patient seen and examined. No acute events overnight. Reported improvement of his shortness of breath and he is down to 2 L of oxygen. Complained of right lateral chest pain but pain medication is working. His vital signs are stable. Pulse ox is maintained on 2 L of oxygen. - Physical Exam General: Alert, Oriented x3, Cooperative, No apparent distress HEENT: Atraumatic, PERRLA, EOMI, Normocephalic Oral: Moist Mucosa, No Gingival or Mucosal Lesions/ Ulcerations Neck: Supple, No JVD, Negative Carotid Bruits, Trachea Midline, Thyroid Normal Size and Texture Lungs: No rhonchi, No wheeze, No rales, Diminished, - - Demonstrate sounds on the right lung, otherwise clear. Cardiovascular: Regular rate, Regular Rhythm, Normal S1, Normal S2, No murmurs Abdomen: Bowel Sounds Present, Soft, Non Tender, Non-Distended, No Hepato- splenomegaly Extremities: No clubbing, No cyanosis, No edema Skin: No rashes, No breakdown Lymphatic: No Cervical, Supraclavicular, or Inguinal Adenopathy Neurological: Cranial nerves II-XII grossly intact, Motor Exam 5/5 strength throughout Psych/Mental Status: Normal Affect, Appropriate Vital Signs Temp Pulse Resp BP Pulse Ox 98.2 F 62 18 144/77 H 95 03/01/18 03:00 03/01/18 03:00 03/01/18 03:00 03/01/18 03:00 03/01/18 03:00 Oxygen Flow Rate (L/min) 2 Oxygen Delivery Method Nasal Cannula Weight: 259 lb 14.8 oz Body Mass Index (BMI) 34.2 Intake and Output for Last 24 Hours 02/27/18 02/28/18 03/01/18 23:59 23:59 23:59 Intake Total 1230 / 1230 1650 / 1650 Output Total 925 / 925 1825 / 1825 265 / 265 Balance 305 / 305 -175 / -175 -265 / -265 Laboratory Tests Past 24 Hrs 03/01/18 03/01/18 05:26 05:26 WBC 8.8 RBC 4.51 L Hgb 14.7 Hct 45.7 MCV 101.3 H MCH 32.6 H MCHC 32.2 RDW 13.0 RDW Differential 47.8 H Plt Count 131 L MPV 12.2 H Immature Gran % (Auto) 0.200 Neut % (Auto) 73.5 H Lymph % (Auto) 15.0 L [place] % (Auto) 8.2 Eos % (Auto) 3.0 Baso % (Auto) 0.1 Absolute Neuts (auto) 6.4 Absolute Lymphs (auto) 1.31 Total Counted Not Reportable Sodium 140 Potassium 4.2 Chloride 105 Carbon Dioxide 29.0 Anion Gap 6 BUN 18 Creatinine 0.76 Estim Creat Clear Calc 109.51 Est GFR (MDRD) Af Amer 133 Est GFR (MDRD) Non-Af 110 BUN/Creatinine Ratio 23.8 H Glucose 115 H Calcium 8.4 L Medical Necessity - Tobacco Use Smoking Status: Never smoker Tobacco Use: Non-smoker Assessment/Plan This is a 58 years old male patient presented to the emergency room because of chest pain and cough on the same day 1 he had bronchoscopy done for evaluation for pulmonary fibrosis and he was found to have right-sided pneumothorax. #1 Recurrent right-sided pneumothorax: Status post insertion of chest you. Initially, pneumocath placed but pneumothorax recurred. His vital signs are stable, respiratory status is stable. Pulse ox is maintained on 2 L of oxygen. Repeat chest x-ray from today revealed full expansion of the right lung. CT scan chest without contrast done yesterday and revealed very tiny right pneumothorax, small right pleural effusion and extensive right chest subcutaneous emphysema. General surgery on the case. Plan to continue same treatment. #2 chronic shortness of breath/cough: Patient has been going under evaluation for those symptoms as outpatient including bronchoscopy which was done on the day of admission. At this time, respiratory status is stable, patient requiring oxygen at 2 L. 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 #3 hypothyroidism: Continue levothyroxine. #4 hyperlipidemia: Continue statins. #5 Hodgkin's lymphoma: Status post chemotherapy. Stable at this time. #6 DVT prophylaxis: Subcu heparin. This note was generated with [employer] dictation software. It may contain incorrect words, spelling, and punctuation that were not noted in checking the note before signing. Code Visit Inpatient E&M: 17933 Subs Hosp L2
[2018-03-01] MEDS: Heparin Injection (Vial) 5,000 UNIT/ML VIAL 5000 UNIT SC ×2 (08:39→21:33)
[2018-03-01] MEDS: Aspirin E.C. 81 MG Tablet PO (08:39)
--- NOTE | 2018-03-01 09:58 | PCM.PN.SRG ---
Subjective: patient complaint of cough, complaint of pain with deep breath - Physical Exam General: Alert Oral: Moist Mucosa Lungs: Normal air movement, Diminished Vital Signs Temp Pulse Resp BP Pulse Ox 98.6 F 63 17 143/83 H 92 03/01/18 08:17 03/01/18 08:17 03/01/18 08:17 03/01/18 08:17 03/01/18 08:17 Oxygen Flow Rate (L/min) 2 Oxygen Delivery Method Nasal Cannula Weight: 117.9 kg Body Mass Index (BMI) 34.2 Intake and Output for Last 24 Hours 02/27/18 02/28/18 03/01/18 23:59 23:59 23:59 Intake Total 1230 / 1230 1650 / 1650 Output Total 925 / 925 1825 / 1825 265 / 265 Balance 305 / 305 -175 / -175 -265 / -265 Laboratory Tests Past 24 Hrs 03/01/18 03/01/18 05:26 05:26 WBC 8.8 RBC 4.51 L Hgb 14.7 Hct 45.7 MCV 101.3 H MCH 32.6 H MCHC 32.2 RDW 13.0 RDW Differential 47.8 H Plt Count 131 L MPV 12.2 H Immature Gran % (Auto) 0.200 Neut % (Auto) 73.5 H Lymph % (Auto) 15.0 L [place] % (Auto) 8.2 Eos % (Auto) 3.0 Baso % (Auto) 0.1 Absolute Neuts (auto) 6.4 Absolute Lymphs (auto) 1.31 Total Counted Not Reportable Sodium 140 Potassium 4.2 Chloride 105 Carbon Dioxide 29.0 Anion Gap 6 BUN 18 Creatinine 0.76 Estim Creat Clear Calc 109.51 Est GFR (MDRD) Af Amer 133 Est GFR (MDRD) Non-Af 110 BUN/Creatinine Ratio 23.8 H Glucose 115 H Calcium 8.4 L Medical Necessity - Tobacco Use Smoking Status: Never smoker Tobacco Use: Non-smoker Assessment/Plan Impression: s/p right chest tube placement, for right pneumothorax after bronch Plan: continue CT suction through the weekend, encourage incentive spirometry will then trial water seal on Saturday and check CXR, if lung still drops - patient may require VATS patient is limited in ambulation, since the chest tubing is connected to wall suction - I recommended walking by the bedside
[2018-03-01] MEDS: oxyCODONE 5 MG Tablet PO ×2 (13:44→21:16)
[2018-03-01] MEDS: Acetaminophen 325 MG Tablet 650 MG PO (19:33)
[2018-03-01] MEDS: Atorvastatin Calcium 20 MG Tablet PO (21:33)
[2018-03-02] VITALS (13 sets, daily range): BP systolic 125–166; BP diastolic 68–97; PULSE 62–80; RESP 17–18; TEMP 36.8–37.3; O2SAT 94–97
[2018-03-02] MEDS: 0.9% NaCl Peripheral Flush Adult/Peds IV ×8 (02:06→23:17)
[2018-03-02] MEDS: Morphine 2 MG/ML Syringe IV ×2 (02:06→06:01)
[2018-03-02] MEDS: oxyCODONE 5 MG Tablet PO ×3 (03:33→19:37)
[2018-03-02] MEDS: Levothyroxine 25 MCG TABLET PO (06:07)
--- NOTE | 2018-03-02 08:08 | PN_ITS ---
Subjective: Chief complaint: Follow-up after admission for recurrent right pneumothorax. Patient seen and examined. No acute events overnight. This morning, he complains of right lateral chest pain, sharp pain, 5 out of 10 in severity, aggravated by movement and taking a deep breath. He mentioned that his breathing is fine. Denied fever or chills. He states that morphine and OxyIR is not working well. His blood pressure slightly elevated, other vital signs are stable. - Physical Exam General: Alert, Oriented x3, Cooperative, - - He is in moderate pain. HEENT: Atraumatic, PERRLA, EOMI, Normocephalic Oral: Moist Mucosa, No Gingival or Mucosal Lesions/ Ulcerations Neck: Supple, No JVD, Negative Carotid Bruits, Trachea Midline, Thyroid Normal Size and Texture Lungs: Clear to auscultation, No rhonchi, No wheeze, No rales, Diminished Cardiovascular: Regular rate, Regular Rhythm, Normal S1, Normal S2, No murmurs Abdomen: Bowel Sounds Present, Soft, Non Tender, Non-Distended, No Hepato- splenomegaly Extremities: No clubbing, No cyanosis, No edema Skin: No rashes, No breakdown Lymphatic: No Cervical, Supraclavicular, or Inguinal Adenopathy Neurological: Cranial nerves II-XII grossly intact, Motor Exam 5/5 strength throughout Psych/Mental Status: Normal Affect, Appropriate, Alert and oriented to time, place, person, mood and affect Vital Signs Temp Pulse Resp BP Pulse Ox 98.3 F 74 17 166/97 H 95 03/02/18 08:00 03/02/18 08:00 03/02/18 08:00 03/02/18 08:00 03/02/18 08:00 Oxygen Flow Rate (L/min) 1 Oxygen Delivery Method Room Air Weight: 259 lb 14.8 oz Body Mass Index (BMI) 34.2 Intake and Output for Last 24 Hours 02/28/18 03/01/18 03/02/18 23:59 23:59 23:59 Intake Total 1650 / 1650 740 / 740 Output Total 1825 / 1825 1465 / 1465 770 / 770 Balance -175 / -175 -725 / -725 -770 / -770 Medical Necessity - Tobacco Use Smoking Status: Never smoker Tobacco Use: Non-smoker Assessment/Plan This is a 58 years old male patient presented to the emergency room because of chest pain and cough on the same day 1 he had bronchoscopy done for evaluation for pulmonary fibrosis and he was found to have right-sided pneumothorax. #1 Recurrent right-sided pneumothorax: Status post insertion of chest tube. Respiratory status stabilized, patient is off oxygen at this time. Initially, pneumocath placed but pneumothorax recurred. Repeat chest x-ray from yesterday revealed full expansion of the right lung. Patient mentioned that his pain is well controlled. Plan: DC IV morphine, start IV Dilaudid, continue other treatments, encourage ambulation and incentive sponsor, repeat chest x-ray tomorrow morning. #2 chronic shortness of breath/cough: Patient has been going under evaluation for those symptoms as outpatient including bronchoscopy which was done on the day of admission. This morning, patient is maintaining his pulse ox on room air. #3 hypothyroidism: Continue levothyroxine. #4 hyperlipidemia: Continue statins. #5 Hodgkin's lymphoma: Status post chemotherapy. Stable at this time. #6 DVT prophylaxis: Subcu heparin. This note was generated with [employer] dictation software. It may contain incorrect words, spelling, and punctuation that were not noted in checking the note before signing. Code Visit Inpatient E&M: 13418 Subs Hosp L2
[2018-03-02] MEDS: Aspirin E.C. 81 MG Tablet PO (08:22)
[2018-03-02] MEDS: Heparin Injection (Vial) 5,000 UNIT/ML VIAL 5000 UNIT SC ×2 (08:23→21:40)
[2018-03-02] MEDS: Magnesium Hydroxide 30 ML UDC PO (08:24)
[2018-03-02] MEDS: Metoprolol Tartrate 5 MG/5 ML Vial IV (08:25)
[2018-03-02] MEDS: HYDROmorphone 1 MG/ML Syringe IV ×3 (08:27→23:16)
--- NOTE | 2018-03-02 11:45 | PCM.PN.SRG ---
Subjective: Patient status is unchanged he states that he can't seem to take as deep an inspiration volume as before, I have encouraged him to continue with IS - Physical Exam General: Alert, Oriented x3 Oral: Moist Mucosa Neck: Supple Lungs: - - improved breath sounds in right lung and to apex Vital Signs Temp Pulse Resp BP Pulse Ox 98.3 F 74 17 166/97 H 95 03/02/18 08:00 03/02/18 08:25 03/02/18 08:00 03/02/18 08:25 03/02/18 08:00 Oxygen Flow Rate (L/min) 1 Oxygen Delivery Method Room Air Weight: 117.9 kg Body Mass Index (BMI) 34.2 Intake and Output for Last 24 Hours 02/28/18 03/01/18 03/02/18 23:59 23:59 23:59 Intake Total 1650 / 1650 740 / 740 Output Total 1825 / 1825 1465 / 1465 770 / 770 Balance -175 / -175 -725 / -725 -770 / -770 Medical Necessity - Tobacco Use Smoking Status: Never smoker Tobacco Use: Non-smoker Assessment/Plan Impression: s/p right chest tube placement, for right pneumothorax after bronch Plan: continue CT suction through the weekend, encourage incentive spirometry will then trial water seal on Saturday and check CXR, if lung still drops - patient may require VATS patient is limited in ambulation, since the chest tubing is connected to wall suction - I recommended walking by the bedside I encouraged patient to continue incentive spirometry
[2018-03-02] MEDS: Ipratropium/Albuterol Sulfate 3 ML AMPUL.NEB INHALATION (20:20)
[2018-03-02] MEDS: Atorvastatin Calcium 20 MG Tablet PO (21:39)
[2018-03-03] VITALS (14 sets, daily range): BP systolic 135–143; BP diastolic 69–84; PULSE 69–94; RESP 16–19; TEMP 36.9–37.2; O2SAT 93–96
[2018-03-03] MEDS: oxyCODONE 5 MG Tablet PO ×2 (02:18→09:51)
[2018-03-03] MEDS: Levothyroxine 25 MCG TABLET PO (05:40)
--- NOTE | 2018-03-03 05:55 | RAD_ITS ---
STUDY: X-RAY CHEST REASON FOR EXAM: Male, 67 years old. Right-sided pneumothorax. TECHNIQUE: PA and lateral views of the chest. COMPARISON: Comparison is made with prior study dated March 01, 2018. FINDINGS: A right-sided chest tube is seen with the tip in the mid to medial portion of the right hemithorax. This is unchanged. Increasing right subcutaneous air. Stable small residual right apical pneumothorax. Findings suggestive of calcified pleural plaques bilaterally. Stable mild degree of bibasilar atelectasis. Increased markings in the peripheral aspect of the right upper lobe most likely representing scarring and/or atelectasis. Normal size heart. Normal mediastinum and viral. There is prominence of the pulmonary hilar arteries without peripheral pulmonary vascular congestion, suggesting pulmonary hypertension. There is atherosclerotic tortuosity of the aortic arch and descending thoracic aorta. Normal visualized thoracic spine. Normal visualized ribs, clavicles, and shoulders. There is no demonstrated abnormality of the visualized soft tissue structures of the upper abdomen. RAD/Chest PA and Lateral IMPRESSION: Stable examination. Electronically Signed: Suresh Melo MD at 14:29 EDT Tel [phone], Service support ,
[2018-03-03] MEDS: Acetaminophen 325 MG Tablet 650 MG PO (06:32)
[2018-03-03] MEDS: Ipratropium/Albuterol Sulfate 3 ML AMPUL.NEB INHALATION ×3 (07:10→20:33)
--- NOTE | 2018-03-03 07:34 | CPS ---
patient requested prn treatment at time of visit.
--- NOTE | 2018-03-03 08:29 | PCM.PROGNOTE ---
Subjective: Chief complaint: Follow-up after admission for recurrent right pneumothorax. Patient seen and examined. No acute events overnight. Today, is feeling better. His right lateral chest pain under better control with IV Dilaudid. Denies shortness of breath. His vital signs are stable. - Physical Exam General: Alert, Oriented x3, Cooperative, No apparent distress HEENT: Atraumatic, PERRLA, EOMI, Normocephalic Oral: Moist Mucosa, No Gingival or Mucosal Lesions/ Ulcerations Neck: Supple, No JVD, Negative Carotid Bruits, Trachea Midline, Thyroid Normal Size and Texture Lungs: No rhonchi, No wheeze, No rales, Diminished, - - Decreased breath sounds on the right lung, otherwise clear. Cardiovascular: Regular rate, Regular Rhythm, Normal S1, Normal S2, PMI Normal Abdomen: Bowel Sounds Present, Soft, Non Tender, Non-Distended, No Hepato-splenomegaly Extremities: No clubbing, No cyanosis, No edema Skin: No rashes, No breakdown Lymphatic: No Cervical, Supraclavicular, or Inguinal Adenopathy Neurological: Cranial nerves II-XII grossly intact, Neuro grossly intact Psych/Mental Status: Normal Affect, Appropriate, Alert and oriented to time, place, person, mood and affect Vital Signs Temp Pulse Resp BP Pulse Ox 98.9 F 82 19 H 143/76 H 94 03/03/18 02:15 03/03/18 07:34 03/03/18 07:34 03/03/18 02:15 03/03/18 07:34 Oxygen Flow Rate (L/min) 2 Oxygen Delivery Method Nasal Cannula Weight: 259 lb 14.8 oz Body Mass Index (BMI) 34.2 Intake and Output for Last 24 Hours 03/01/18 03/02/18 03/03/18 23:59 23:59 23:59 Intake Total 740 / 740 1160 / 1160 Output Total 1465 / 1465 1775 / 1775 600 / 600 Balance -725 / -725 -615 / -615 -600 / -600 Medical Necessity - Tobacco Use Smoking Status: Never smoker Tobacco Use: Non-smoker Assessment/Plan This is a 58 years old male patient presented to the emergency room because of chest pain and cough on the same day 1 he had bronchoscopy done for evaluation for pulmonary fibrosis and he was found to have right-sided pneumothorax. #1 Recurrent right-sided pneumothorax: Status post insertion of chest tube. His pain is under control. Respiratory status stabilized, pulse ox is maintained on 2 L of oxygen. Other vital signs are stable. Initially, pneumocath placed but pneumothorax recurred. Repeat chest x-ray from today reviewed and revealed full expansion of the right lung. Will wait for general surgery to evaluate and wait for the official report of the chest x-ray. #2 chronic shortness of breath/cough: Patient has been going under evaluation for those symptoms as outpatient including bronchoscopy which was done on the day of admission. 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 #3 hypothyroidism: Continue levothyroxine. #4 hyperlipidemia: Continue statins. #5 Hodgkin's lymphoma: Status post chemotherapy. Stable at this time. #6 DVT prophylaxis: Subcu heparin. This note was generated with [employer] dictation software. It may contain incorrect words, spelling, and punctuation that were not noted in checking the note before signing. Code Visit Inpatient E&M: 78219 Subs Hosp L2
[2018-03-03] MEDS: Aspirin E.C. 81 MG Tablet PO (09:39)
--- NOTE | 2018-03-03 12:05 | RAD_ITS ---
STUDY: X-RAY CHEST REASON FOR EXAM: Male, 67 years old. Pneumothorax. TECHNIQUE: Single AP portable view of the chest. COMPARISON: Comparison is made with prior examination earlier today at 6:43 AM. FINDINGS: The right-sided chest tube is unchanged. Persistent right subcutaneous emphysema. Stable appearance of the small right apical pneumothorax. There has been essentially no change. RAD/Chest 1 View (Portable) IMPRESSION: There is been essentially no change as compared to prior examination done earlier today. Electronically Signed: Suresh Melo MD at 14:33 EDT Tel [phone], Service support ,
[2018-03-03] MEDS: Magnesium Hydroxide 30 ML UDC PO (12:48)
--- NOTE | 2018-03-03 15:15 | RAD_ITS ---
STUDY: X-RAY CHEST REASON FOR EXAM: Male, 67 years old. Chest tube removal TECHNIQUE: Single AP portable view of the chest. COMPARISON: 03/03/2018 FINDINGS: Cardiac monitoring leads overlie the chest. The right chest tube has been removed. There is a tiny right apical pneumothorax. The interstitial markings remain prominent. Normal size heart. Normal mediastinum and viral. Normal visualized pulmonary arteries. Normal visualized aortic arch and descending thoracic aorta. Normal visualized thoracic spine. Normal visualized ribs, clavicles, and shoulders. There is no demonstrated abnormality of the visualized soft tissue structures of the upper abdomen. RAD/Chest 1 View (Portable) IMPRESSION: No change to the tiny right apical pneumothorax status post right chest tube removal. Electronically Signed: Gallito Luong DO at 15:45 EDT Tel , Service support ,
--- NOTE | 2018-03-03 16:12 | NURSING ---
This RN taking over care at this time
--- NOTE | 2018-03-03 17:57 | PN.SURG_ITS ---
Subjective: pain from the chest tube at insertion site, improved after chest tube removal - Physical Exam General: Alert, Oriented x3 Lungs: Clear to auscultation, Normal air movement, - - chest tube site with some swelling and subcutaneous crepitance, no unexpected findings. After removal of chest tube Cardiovascular: Regular rate, Regular Rhythm Vital Signs Temp Pulse Resp BP Pulse Ox 98.9 F 89 18 143/83 H 94 03/03/18 17:36 03/03/18 17:36 03/03/18 17:36 03/03/18 17:36 03/03/18 17:36 Oxygen Flow Rate (L/min) 2 Oxygen Delivery Method Nasal Cannula Weight: 117.9 kg Body Mass Index (BMI) 34.2 Intake and Output for Last 24 Hours 03/01/18 03/02/18 03/03/18 23:59 23:59 23:59 Intake Total 740 / 740 1160 / 1160 840 / 840 Output Total 1465 / 1465 1775 / 1775 602 / 602 Balance -725 / -725 -615 / -615 238 / 238 Medical Necessity - Tobacco Use Smoking Status: Never smoker Tobacco Use: Non-smoker Assessment/Plan s/p pneumothorax status post bronchoscopy, failed pneumocath with placement of 28 [place] chest tube. Chest x-ray looked nicely expanded this morning. The patient was placed on waterseal. 6 hours later he had good expansion of the chest cavity/lung. The chest tube was removed. Post removal chest x-ray demonstrated good expansion of the lung one hour later. plan for morning chest x-ray given the patient's palmar fibrosis and relatively complicated recurrent course. If the patient has good reexpansion. We will plan for discharge to home tomorrow.
[2018-03-03] MEDS: Atorvastatin Calcium 20 MG Tablet PO (22:19)
[2018-03-04 03:12] VITALS: BP 139/77; PULSE 74; RESP 16; TEMP 36.7; O2SAT 95
[2018-03-04] MEDS: oxyCODONE 5 MG Tablet PO (03:13)
[2018-03-04 03:18] VITALS: PULSE 79
--- NOTE | 2018-03-04 05:30 | RAD_ITS ---
STUDY: X-RAY CHEST REASON FOR EXAM: Male, 67 years old. Right-sided pneumothorax TECHNIQUE: Single AP portable view of the chest. COMPARISON: 03/03/2018 FINDINGS: Cardiac monitoring leads overlie the chest. The interstitial markings are prominent. The right apical pneumothorax is not definitely identified. Normal size heart. Normal mediastinum and viral. There is prominence of the pulmonary hilar arteries without peripheral pulmonary vascular congestion, suggesting pulmonary hypertension. There is atherosclerotic calcification of the aortic arch with tortuosity. There are diffuse degenerative changes of the visualized thoracic spine. Normal visualized ribs, clavicles, and shoulders. There is no demonstrated abnormality of the visualized soft tissue structures of the upper abdomen. There is continued subcutaneous emphysema along the right lateral chest wall. RAD/Chest 1 View (Portable) IMPRESSION: No definite right apical pneumothorax. Chronic interstitial changes. Electronically Signed: Gallito Luong DO at 8:13 EDT Tel , Service support ,
[2018-03-04] MEDS: Levothyroxine 25 MCG TABLET PO (06:11)
[2018-03-04 06:57] VITALS: PULSE 73
[2018-03-04 07:54] VITALS: O2SAT 83; O2SAT 91; O2SAT 92
[2018-03-04 07:55] VITALS: BP 152/79; PULSE 88; RESP 18; TEMP 36.9; O2SAT 94
[2018-03-04] MEDS: Aspirin E.C. 81 MG Tablet PO (07:55)
--- NOTE | 2018-03-04 07:58 | PCM.PN.SRG ---
Subjective: less pain after Ct removal - Physical Exam General: Alert, Oriented x3 Lungs: Clear to auscultation, Normal air movement, Diminished, - - symmetric breath sounds Cardiovascular: Regular rate, Regular Rhythm Vital Signs Temp Pulse Resp BP Pulse Ox 98.0 F 73 16 139/77 H 92 03/04/18 03:12 03/04/18 06:57 03/04/18 03:12 03/04/18 03:12 03/04/18 07:54 Oxygen Flow Rate (L/min) [ 2 AMBULATION with Oxygen] Oxygen Flow Rate (L/min) 2 Oxygen Delivery Method Room Air Weight: 117.9 kg Body Mass Index (BMI) 34.2 Intake and Output for Last 24 Hours 03/02/18 03/03/18 03/04/18 23:59 23:59 23:59 Intake Total 1160 / 1160 840 / 840 360 / 360 Output Total 1775 / 1775 602 / 602 Balance -615 / -615 238 / 238 360 / 360 Medical Necessity - Tobacco Use Smoking Status: Never smoker Tobacco Use: Non-smoker Assessment/Plan s/p pneumothorax status post bronchoscopy, failed pneumocath with placement of 28 [place] chest tube. removed yesterday. Chest x-ray looked nicely expanded this morning - okay for discharge. bandage was changed this morning. plan have the patient follow-up in my office in one week.
--- NOTE | 2018-03-04 08:17 | DCINST_ITS ---
You will use the following diet at home:: Regular Your food should be the consistency of: Regular Discharge Activity: Return to Normal Activity Weight Bearing Status: Weight bearing as tolerated Call your doctor if you observe: Fever of 101 or Higher, Shortness of breath, Dizziness, Fainting spells, Chest pain, Increased palpitations (irregular heartbeat), Uncontrolled pain Instructions: Pneumothorax (Collapsed Lung), Discharge Instructions: Using Oxygen at Home Allergies/Adverse Reactions: Allergies bleomycin Allergy (Verified 02/26/18 22:48) Other Medications to take at Discharge Aspirin E.C. [Ecotrin] 81 mg PO DAILY@0800 09/25/17 Atorvastatin Calcium [Lipitor] 20 mg PO QHS 09/25/17 Levothyroxine [Synthroid] 25 mcg PO DAILY 09/25/17 Oxycodone [Oxyir] 5 mg PO Q8H PRN PRN 5 Days #14 tab 03/04/18 Oxygen, Home [Home Oxygen] 2 lpm NASAL CONT #1 unit 03/04/18 The following prescriptions were given: Oxycodone [Oxyir] 5 mg PO Q8H PRN PRN 5 Days #14 tab PRN Reason: Severe Pain (6-10/10) Oxygen, Home [Home Oxygen] 2 lpm NASAL CONT #1 unit Primary Care Physician: Andres Scruggs MD [Primary Care Provider] - Please follow up with your Primary Care Physician in: as scheduled. Test Results: Test results from this visit will be discussed in further detail at your follow- up appointment, if applicable. Please Follow Up With: Teja Cueva MD When: please call his office.
--- NOTE | 2018-03-04 08:45 | CASEMGMT ---
Addendum entered by Gallito Marie 03/04/18 09:56: Repeat ambulatory testing showed Home oxygen is needed. [facility] Original Note: Addendum entered by Gallito Marie 03/04/18 09:35: Pt states repeat testing has not been completed yet. Young FERRARA RN ACM Original Note: Referral received for Home Oxygen. Intro role of CM to patient and his . per Insurance lookup, [facility] and [employer] are innetwork for DME. Pt and request [facility], but wish to have oxygen testing repeated as he prefers not to use @ home. Will await repeat testing prior to sending referral to [facility] Young FERRARA RN AC
--- NOTE | 2018-03-04 09:50 | NURSING ---
per pt request, retested home O2 qualification. pt dropped to 84% while ambulating on room air
--- NOTE | 2018-03-04 10:50 | CASEMGMT ---
RN CM NOTE: call received from [facility]. HT/WT verified. Oxygen referral being processed. Young BLAKEN RN ACM
--- NOTE | 2018-03-04 15:57 | PCM.DC.SUM ---
Discharge Date and Diagnosis Date of Admission: 02/27/18 Date of Discharge: 03/04/18 - Primary Discharge Diagnosis #1 recurrent right-sided pneumothorax. #2 hypoxia. Hospital Course and Treatment Imaging Results: Clinical Impression(s) from Imaging Studies Chest X-Ray 02/26/18 23:00 IMPRESSION: Acute right pneumothorax, at least 50% with substantial atelectasis of the right lung. Negative for pleural effusion. Left lung expanded and clear. The mediastinum is not substantially shifted. The right diaphragm is not flattened and the intercostal spaces are symmetric. N.B. : The above information has been verbally conveyed by Ana Lilia Luo MD to Dr. Celaya, [facility] Physician, on 02/26/2018 23:24:29 (ET). Electronically Signed: Ana Lilia Luo MD at 23:24 EDT , Service support , Chest X-Ray 02/27/18 00:30 IMPRESSION: Status post chest tube placement, with adequate position. Small right pneumothorax, markedly improved from previous study. Electronically Signed: Ozzie Faustin MD at 1:56 EDT , Service support , Chest X-Ray 02/27/18 08:05 IMPRESSION: Significant increase in the size of a previously noted right pneumothorax. Now affects approximately 50% of the right hemithorax with slight right to left midline shift. Visualized right lung shows compressive atelectasis Left lung shows chronic interstitial changes without a superimposed process Small caliber right-sided chest tube remains in position within the right hemithorax. N.B. : The above information has been verbally conveyed by David Schwartz MD to Bro [facility]- In-Patient RN, on 02/27/2018 09:08:41 (ET). Electronically Signed: David Schwartz MD at 9:08 EDT , Service support , Chest X-Ray 02/27/18 12:26 IMPRESSION: Resolution of the previously noted right pneumothorax. Small caliber right-sided chest tube now much more conspicuous in the lower right hemithorax. There is no mediastinal shift. There is a small amount of subcutaneous emphysema. Resolution of previously described compressive atelectasis in the right lung. Both lungs are now normally expanded with chronic interstitial changes. Prominence to the proximal pulmonary arteries Degenerative bony changes Electronically Signed: David Schwartz MD at 13:11 EDT , Service support , Chest X-Ray 02/28/18 05:15 IMPRESSION: Previous noted right pneumothorax has returned. It affects approximately 25% of the right hemithorax without mediastinal shift. Small caliber chest tube is still seen in the inferior right hemithorax. Increase in amount of subcutaneous emphysema in the right chest wall suggests air leak Lung kelly are otherwise clear. N.B. : The above information has been verbally conveyed by David Schwartz MD to Radha [facility]- In-Patient RN, on 02/28/2018 07:56:18 (ET). Electronically Signed: David Schwartz MD at 7:56 EDT , Service support , Chest X-Ray 02/28/18 08:35 IMPRESSION: Despite the presence of a new small caliber chest tube in the right hemithorax there remains a right pneumothorax. The pneumothorax has diminished since the previous study, it now occupies approximately 15% of the right hemithorax without mediastinal shift. Compressive atelectatic changes noted in the right lung since the previous study Left lung is clear. Electronically Signed: David Schwartz MD at 9:23 EDT , Service support , Chest X-Ray 02/28/18 11:40 IMPRESSION: Previously noted right pneumothorax has been reduced after placement of a large caliber chest tube into the right hemithorax. Chronic interstitial changes in both lung kelly without a superimposed infiltrate or effusion. There is no mediastinal shift. Stable subcutaneous emphysema Electronically Signed: David Schwartz MD at 12:16 EDT , Service support , Chest CT 02/28/18 12:27 IMPRESSION: Very tiny right pneumothorax after a large caliber chest tube placement into the right hemithorax. Lung kelly show chronic interstitial changes in both lung kelly with nonspecific pleural thickening, small right pleural effusion with associated atelectasis. Extensive subcutaneous emphysema in the right chest both anteriorly and posteriorly extending into the neck Axial images 142 through 157 suggest air within the main pulmonary artery Degenerative bony changes Electronically Signed: David Schwartz MD at 13:10 EDT , Service support , Chest X-Ray 03/01/18 06:25 IMPRESSION: The right-sided chest tube is overlying the right hilum/mediastinum. Persistent right apical pneumothorax. Right-sided subcutaneous gas. Prominence of the right hilum is likely associated with vascular prominence mild enlargement of the pulmonary artery. There is minimal right lower lobe atelectasis. Electronically Signed: Cleo Zamarripa MD at 8:34 EDT Tel , Service support , Chest X-Ray 03/03/18 05:55 IMPRESSION: Stable examination. Electronically Signed: Suresh Melo MD at 14:29 EDT Tel [phone], Service support , Chest X-Ray 03/03/18 12:05 IMPRESSION: There is been essentially no change as compared to prior examination done earlier today. Electronically Signed: Suresh Melo MD at 14:33 EDT Tel [phone], Service support , Chest X-Ray 03/03/18 15:15 IMPRESSION: No change to the tiny right apical pneumothorax status post right chest tube removal. Electronically Signed: Gallito Luong DO at 15:45 EDT Tel , Service support , Chest X-Ray 03/04/18 05:30 IMPRESSION: No definite right apical pneumothorax. Chronic interstitial changes. Electronically Signed: Gallito Luong at 8:13 EDT Tel , Service support , Dr. Degroot: General surgery. Operations: None Procedures: - - Pneumocath and chest tube. Summary of Care Provided: Patient seen and examined on the day of discharge after removal of the chest tube yesterday. Reported minimal right lateral chest pain which is manageable. Denies shortness of breath. His vital signs are stable, remained on 2 L of oxygen. - Physical Exam General: Alert, Oriented x3, Cooperative, No apparent distress. HEENT: Atraumatic, PERRLA, EOMI. Neck: Supple, No JVD, Negative Carotid Bruits, Trachea Midline, Thyroid Normal. Lungs: Diminished breath sounds bilateral, otherwise clear, No rhonchi, No wheeze, No rales. Cardiovascular: Regular rate, Regular Rhythm, Normal S1, Normal S2, PMI Normal. Abdomen: Bowel Sounds Present, Soft, Non Tender, Non-Distended, No Hepato-splenomegaly. Extremities: No clubbing, No cyanosis, No edema Skin: No rashes, No breakdown Neurological: Neuro grossly intact Vital Signs are stable. Hospital course: The patient is a 67 year old M admitted because of chest pain and cough on the same day when he had bronchoscopy done at [facility] for evaluation for suspected pulmonary fibrosis and this procedure was complicated by right-sided pneumothorax. Patient had pneumocath inserted by the ER physician on the day of admission and chest x-ray after insertion of the pneumothorax revealed full expansion of the right lung. Next morning, repeat chest x-ray revealed recurrent right-sided pneumothorax. General surgery consulted and patient was taken to OR for repositioning and the insertion of the right pneumocath. Repeat chest x-ray after the repeat procedure revealed full expansion of the right lung. Next morning, repeat chest x-ray revealed recurrent right sided pneumothorax again and Dr. Degroot patient for insertion of large chest tube which connected to underwent waterseal. After expansion of the lung for the second time, CT scan chest done and revealed very tiny right pneumothorax after large-caliber chest tube placement and also revealed extensive subcutaneous emphysema in the right chest both anteriorly and posteriorly. Patient remained on suction by underwater seal drainage system. He was managed with pain medication, oxygen by nasal cannula. Repeat chest x-ray on the day before discharge revealed full expansion of the right lung with very tiny small apical right pneumothorax. Patient was placed on light suction again and repeat chest x-ray yesterday revealed full expansion of the right lung. Chest tube was taken out. Repeat chest x-ray on the day of discharge revealed stable full expansion of the right lung. Patient's follow oximeter was above 92% on 2 L. Walking pulse oximetry performed and his pulse ox came down to 83% and he qualified to go home with home oxygen. Patient discharged home with home oxygen at 2 L, discharged on OxyIR as needed for pain, continued on his chronic home medication without any changes, plan to follow-up with his PCP by the end of this week, follow-up with his chief nursing officer in couple of weeks. Discharge Activity: Return to Normal Activity Weight Bearing Status: Weight bearing as tolerated Call your doctor if you observe: Fever of 101 or Higher, Shortness of breath, Dizziness, Fainting spells, Chest pain, Increased palpitations (irregular heartbeat), Uncontrolled pain Home Medications: Medications to take at Discharge Aspirin E.C. [Ecotrin] 81 mg PO DAILY@0800 09/25/17 Atorvastatin Calcium [Lipitor] 20 mg PO QHS 09/25/17 Levothyroxine [Synthroid] 25 mcg PO DAILY 09/25/17 Oxycodone [Oxyir] 5 mg PO Q8H PRN PRN 5 Days #14 tab 03/04/18 Oxygen, Home [Home Oxygen] 2 lpm NASAL CONT #1 unit 03/04/18 Following Prescrptions Were Given to Patient: Oxycodone [Oxyir] 5 mg PO Q8H PRN PRN 5 Days #14 tab PRN Reason: Severe Pain (6-10/10) Oxygen, Home [Home Oxygen] 2 lpm NASAL CONT #1 unit Primary Care Physician: Andres Scruggs MD [Primary Care Provider] - Please follow up with your Primary Care Physician in: as scheduled. Please Follow Up With: Teja Cueva MD When: please call his office. Please Follow Up With: Andres Scruggs MD Patient Instructions: Pneumothorax (Collapsed Lung), Discharge Instructions: Using Oxygen at Home Disposition: Home Minutes spent on discharge:: 32 Patient Condition:: Stable Medical Necessity - Tobacco Use Smoking Status: Never smoker Tobacco Use: Non-smoker Meaningful Use Info Meaningful Use Diagnoses (Choose all that apply): None applicable Code Visit Inpatient E&M: 53070 Disch Hosp
--- NOTE | 2018-03-04 16:04 | DS.PCM_ITS ---
Discharge Date and Diagnosis Date of Admission: 02/27/18 Date of Discharge: 03/04/18 - Primary Discharge Diagnosis #1 recurrent right-sided pneumothorax. #2 hypoxia. Hospital Course and Treatment Imaging Results: Clinical Impression(s) from Imaging Studies Chest X-Ray 02/26/18 23:00 IMPRESSION: Acute right pneumothorax, at least 50% with substantial atelectasis of the right lung. Negative for pleural effusion. Left lung expanded and clear. The mediastinum is not substantially shifted. The right diaphragm is not flattened and the intercostal spaces are symmetric. N.B. : The above information has been verbally conveyed by Ana Lilia Luo MD to Dr. Celaya, [facility] Physician, on 02/26/2018 23:24:29 (ET). Electronically Signed: Ana Lilia Luo MD at 23:24 EDT , Service support , Chest X-Ray 02/27/18 00:30 IMPRESSION: Status post chest tube placement, with adequate position. Small right pneumothorax, markedly improved from previous study. Electronically Signed: Ozzie Faustin MD at 1:56 EDT , Service support , Chest X-Ray 02/27/18 08:05 IMPRESSION: Significant increase in the size of a previously noted right pneumothorax. Now affects approximately 50% of the right hemithorax with slight right to left midline shift. Visualized right lung shows compressive atelectasis Left lung shows chronic interstitial changes without a superimposed process Small caliber right-sided chest tube remains in position within the right hemithorax. N.B. : The above information has been verbally conveyed by David Schwartz MD to Bro [facility]- In-Patient RN, on 02/27/2018 09:08:41 (ET). Electronically Signed: David Schwartz MD at 9:08 EDT , Service support , Chest X-Ray 02/27/18 12:26 IMPRESSION: Resolution of the previously noted right pneumothorax. Small caliber right-sided chest tube now much more conspicuous in the lower right hemithorax. There is no mediastinal shift. There is a small amount of subcutaneous emphysema. Resolution of previously described compressive atelectasis in the right lung. Both lungs are now normally expanded with chronic interstitial changes. Prominence to the proximal pulmonary arteries Degenerative bony changes Electronically Signed: David Schwartz MD at 13:11 EDT , Service support , Chest X-Ray 02/28/18 05:15 IMPRESSION: Previous noted right pneumothorax has returned. It affects approximately 25% of the right hemithorax without mediastinal shift. Small caliber chest tube is still seen in the inferior right hemithorax. Increase in amount of subcutaneous emphysema in the right chest wall suggests air leak Lung kelly are otherwise clear. N.B. : The above information has been verbally conveyed by David Schwartz MD to Radha [facility]- In-Patient RN, on 02/28/2018 07:56:18 (ET). Electronically Signed: David Schwartz MD at 7:56 EDT , Service support , Chest X-Ray 02/28/18 08:35 IMPRESSION: Despite the presence of a new small caliber chest tube in the right hemithorax there remains a right pneumothorax. The pneumothorax has diminished since the previous study, it now occupies approximately 15% of the right hemithorax without mediastinal shift. Compressive atelectatic changes noted in the right lung since the previous study Left lung is clear. Electronically Signed: David Schwartz MD at 9:23 EDT , Service support , Chest X-Ray 02/28/18 11:40 IMPRESSION: Previously noted right pneumothorax has been reduced after placement of a large caliber chest tube into the right hemithorax. Chronic interstitial changes in both lung kelly without a superimposed infiltrate or effusion. There is no mediastinal shift. Stable subcutaneous emphysema Electronically Signed: David Schwartz MD at 12:16 EDT , Service support , Chest CT 02/28/18 12:27 IMPRESSION: Very tiny right pneumothorax after a large caliber chest tube placement into the right hemithorax. Lung kelly show chronic interstitial changes in both lung kelly with nonspecific pleural thickening, small right pleural effusion with associated atelectasis. Extensive subcutaneous emphysema in the right chest both anteriorly and posteriorly extending into the neck Axial images 142 through 157 suggest air within the main pulmonary artery Degenerative bony changes Electronically Signed: David Schwartz MD at 13:10 EDT , Service support , Chest X-Ray 03/01/18 06:25 IMPRESSION: The right-sided chest tube is overlying the right hilum/mediastinum. Persistent right apical pneumothorax. Right-sided subcutaneous gas. Prominence of the right hilum is likely associated with vascular prominence mild enlargement of the pulmonary artery. There is minimal right lower lobe atelectasis. Electronically Signed: Cleo Zamarripa MD at 8:34 EDT Tel , Service support , Chest X-Ray 03/03/18 05:55 IMPRESSION: Stable examination. Electronically Signed: Suresh Melo MD at 14:29 EDT Tel [phone], Service support , Chest X-Ray 03/03/18 12:05 IMPRESSION: There is been essentially no change as compared to prior examination done earlier today. Electronically Signed: Suresh Melo MD at 14:33 EDT Tel [phone], Service support , Chest X-Ray 03/03/18 15:15 IMPRESSION: No change to the tiny right apical pneumothorax status post right chest tube removal. Electronically Signed: Gallito Luong DO at 15:45 EDT Tel , Service support , Chest X-Ray 03/04/18 05:30 IMPRESSION: No definite right apical pneumothorax. Chronic interstitial changes. Electronically Signed: Gallito Luong at 8:13 EDT Tel , Service support , Dr. Degroot: General surgery. Operations: None Procedures: - - Pneumocath and chest tube. Summary of Care Provided: Patient seen and examined on the day of discharge after removal of the chest tube yesterday. Reported minimal right lateral chest pain which is manageable. Denies shortness of breath. His vital signs are stable, remained on 2 L of oxygen. - Physical Exam General: Alert, Oriented x3, Cooperative, No apparent distress. HEENT: Atraumatic, PERRLA, EOMI. Neck: Supple, No JVD, Negative Carotid Bruits, Trachea Midline, Thyroid Normal. Lungs: Diminished breath sounds bilateral, otherwise clear, No rhonchi, No wheeze, No rales. Cardiovascular: Regular rate, Regular Rhythm, Normal S1, Normal S2, PMI Normal. Abdomen: Bowel Sounds Present, Soft, Non Tender, Non-Distended, No Hepato- splenomegaly. Extremities: No clubbing, No cyanosis, No edema Skin: No rashes, No breakdown Neurological: Neuro grossly intact Vital Signs are stable. Hospital course: The patient is a 67 year old M admitted because of chest pain and cough on the same day when he had bronchoscopy done at [facility] for evaluation for suspected pulmonary fibrosis and this procedure was complicated by right-sided pneumothorax. Patient had pneumocath inserted by the ER physician on the day of admission and chest x-ray after insertion of the pneumothorax revealed full expansion of the right lung. Next morning, repeat chest x-ray revealed recurrent right-sided pneumothorax. General surgery consulted and patient was taken to OR for repositioning and the insertion of the right pneumocath. Repeat chest x-ray after the repeat procedure revealed full expansion of the right lung. Next morning, repeat chest x-ray revealed recurrent right sided pneumothorax again and Dr. Degroot patient for insertion of large chest tube which connected to underwent waterseal. After expansion of the lung for the second time, CT scan chest done and revealed very tiny right pneumothorax after large-caliber chest tube placement and also revealed extensive subcutaneous emphysema in the right chest both anteriorly and posteriorly. Patient remained on suction by underwater seal drainage system. He was managed with pain medication, oxygen by nasal cannula. Repeat chest x-ray on the day before discharge revealed full expansion of the right lung with very tiny small apical right pneumothorax. Patient was placed on light suction again and repeat chest x-ray yesterday revealed full expansion of the right lung. Chest tube was taken out. Repeat chest x-ray on the day of discharge revealed stable full expansion of the right lung. Patient's follow oximeter was above 92% on 2 L. Walking pulse oximetry performed and his pulse ox came down to 83% and he qualified to go home with home oxygen. Patient discharged home with home oxygen at 2 L, discharged on OxyIR as needed for pain, continued on his chronic home medication without any changes, plan to follow-up with his PCP by the end of this week, follow-up with his assembly associate in couple of weeks. Discharge Activity: Return to Normal Activity Weight Bearing Status: Weight bearing as tolerated Call your doctor if you observe: Fever of 101 or Higher, Shortness of breath, Dizziness, Fainting spells, Chest pain, Increased palpitations (irregular heartbeat), Uncontrolled pain Home Medications: Medications to take at Discharge Aspirin E.C. [Ecotrin] 81 mg PO DAILY@0800 09/25/17 Atorvastatin Calcium [Lipitor] 20 mg PO QHS 09/25/17 Levothyroxine [Synthroid] 25 mcg PO DAILY 09/25/17 Oxycodone [Oxyir] 5 mg PO Q8H PRN PRN 5 Days #14 tab 03/04/18 Oxygen, Home [Home Oxygen] 2 lpm NASAL CONT #1 unit 03/04/18 Following Prescrptions Were Given to Patient: Oxycodone [Oxyir] 5 mg PO Q8H PRN PRN 5 Days #14 tab PRN Reason: Severe Pain (6-10/10) Oxygen, Home [Home Oxygen] 2 lpm NASAL CONT #1 unit Primary Care Physician: Andres Scruggs MD [Primary Care Provider] - Please follow up with your Primary Care Physician in: as scheduled. Please Follow Up With: Teja Cueva MD When: please call his office. Please Follow Up With: Andres Scruggs MD Patient Instructions: Pneumothorax (Collapsed Lung), Discharge Instructions: Using Oxygen at Home Disposition: Home Minutes spent on discharge:: 32 Patient Condition:: Stable Medical Necessity - Tobacco Use Smoking Status: Never smoker Tobacco Use: Non-smoker Meaningful Use Info Meaningful Use Diagnoses (Choose all that apply): None applicable Code Visit Inpatient E&M: 58341 Disch Hosp
--- NOTE | 2018-03-05 15:12 | CASEMGMT ---
Follow-up Call: Follow-up call placed to patient. Patient's , Gisel, informs me that the patient is unavailable to speak at this time. She tells me the patient is doing fine and slept well. She confirmed that the patient has an appt with both his PCP and range aide this Saturday. She states that he was setup with home oxygen and has no further needs. Gisel informed me that the patient has been weaning himself off his oxygen. She states he has a pulse oximeter and has been monitoring this. I asked her if a physician instructed him to wean off and she said that he has chosen to do this himself, but that she did inform his pulmonology nurse this morning. I asked her to inform the patient that we do not recommend he go without his home oxygen or adjust it in any way. Patient will be following up with providers on Saturday.
== END 2018-03-04 11:55 | disposition home or self-care (01) | DRG 201 ==
LOC: ED 23:07 → PCU 02-27 03:27
PROVIDERS: Surgery; Admitting Provider Hospitalist; Emergency Provider Emergency Medicine; Family Provider Internal Medicine; PCP Internal Medicine; Visit Provider Hospitalist
PROC: 0W9930Z Drainage of Right Pleural Cavity with Drainage Device, Percutaneous Approach (ICD-10-PCS; CPT 32550; principal; 2018-02-28 10:05)
DX: J95.811 Postprocedural pneumothorax (principal); Y83.8 Other surgical procedures as the cause of abnormal reaction of the patient, or of later complication, without mention of misadventure at the time of the procedure; J84.10 Pulmonary fibrosis, unspecified; G47.33 Obstructive sleep apnea (adult) (pediatric); E78.5 Hyperlipidemia, unspecified; J45.909 Unspecified asthma, uncomplicated; E03.9 Hypothyroidism, unspecified; Z85.72 Personal history of non-Hodgkin lymphomas; Z92.21 Personal history of antineoplastic chemotherapy
CPT/HCPCS: 32551; 36415; 71045; 71046; 71250; 80048; 84484; 85025; 93005; 94002; 94640; 94762; 99251; 99285; J7030; A4216; G0463

== ENCOUNTER 2021-08-07 13:24 | Outpatient (CLI) | payer MEDICARE, SELFPAY | END 2021-08-07 23:59 | disposition short-term general hospital (02) | LOC: LABSPEC 13:25 | PROVIDERS: PCP Internal Medicine; Referring Provider Physician Assistant; Visit Provider Physician Assistant | DX: Z11.52 Encounter for screening for COVID-19 (principal) | CPT/HCPCS: 87635; U0003; U0005 ==

== ENCOUNTER 2023-03-07 12:34 | Emergency (ER) | payer MEDICARE, SELFPAY ==
[2023-03-07 12:36] VITALS: BP 139/87; PULSE 78; RESP 14; TEMP 36.4; O2SAT 95; BMI 30.9
--- NOTE | 2023-03-07 12:48 | EDS_ITS ---
HPI History of Present Illness Chief Complaint: Back Detail of Chief Complaint: Right lower back pain that radiates up to his right shoulder. Informant: patient Onset/Context/Timing Onset: Days (3 days) Context: Sudden Onset Chronic pain exacerbated by: No history of trauma to his knowledge. Timing: Continuous and Intermittent Quality: Aching Location: Thoracic and Lumbar Current Severity: Mild Maximum Severity: Moderate Worsened by: improves with - (Upright position) Relieved by: - (Supine position and if he puts his arm up behind his head.) Associated Symptoms Associated Symptoms: Negative for Numbness, Tingling, Radiation to Right Leg, Radiation to Left Leg, Fever, Abdominal Pain, Dysuria, Unable to Ambulate, Unable to Transfer, Urinary Retention, Urinary Incontinence, Constipation or Fecal Incontinence Narrative Narrative: Patient presents with right lower back pain that radiates up to his shoulder and arm. Certain movements make it worse or movements make it better. He denies fever, chills night sweats. He states he had this in the past and his doctor would prescribe an anti-inflammatory, opiate analgesic and muscle relaxant and he would get better. He is taken 1 Aleve. He is taken ibuprofen. And does not consistently taking 1 medicine. He is also taken Tylenol. He has not applied ice or heat. He denies history of renal or ureterolithiasis. He denies history of diverticulosis or diverticulitis. He denies scrotal pain or swelling. Prior similar symptoms: Yes (What is different today is that the pain radiated upward.) Recent Illness/Hospitalization: No PFSH [facility] Medical History Hodgkin's lymphoma Hypothyroidism Home Medications aspirin 81 mg tablet,delayed release 81 mg PO DAILY@0800 09/25/17 [History Last Taken Unknown] atorvastatin 20 mg tablet 20 mg PO QHS 09/25/17 [History Last Taken Unknown] levothyroxine 25 mcg tablet 25 mcg PO DAILY 09/25/17 [History Last Taken Unknown] Oxygen, Home [Home Oxygen] 2 lpm CONT Hypoxia, Rt. pneumothorax #1 unit 03/04/18 [Rx Last Taken Unknown] oxycodone 5 mg tablet 5 mg PO Q8H PRN PRN Severe Pain (6-10/10) 5 days #14 tabs 03/04/18 [Rx Last Taken Unknown] hydrocodone-acetaminophen 5-325mg 5mg-325mg 1 tab PO Q6H PRN PRN Pain 3 days #10 TABLETS 03/07/23 [Rx Last Taken Unknown] Allergy/AdvReac Type Severity Reaction Status Date / Time bleomycin Allergy Other Verified 03/07/23 12:37 Social History (Updated 03/07/23 @ 12:[address] Samuel Chadwick MD) household members: spouse Smoking Status: Never smoker ROS ROS ED Constitutional Constitutional ED: Denies chills, fever(s), subjective, sweats or weight loss Eyes Eyes: Denies blurry vision, change in vision or diplopia ENT ENT ED: Denies ear pain, rhinorrhea or sore throat Cardiovascular Cardiovascular: Denies chest pain, palpitations or racing heartbeat Respiratory/Chest Respiratory/Chest: Denies dyspnea or dyspnea on exertion Gastrointestinal Gastrointestinal: Denies abdominal pain, nausea or vomiting Genitourinary Genitourinary ED: Denies dysuria, hematuria or urinary frequency Musculoskeletal Musculoskeletal: Reports back pain; Denies arthralgias, myalgias or neck pain Neurologic Neurologic: Denies headache(s), paresthesias or weakness EXAM Physical Exam Const Vital Signs: 03/07/23 12:36 Temperature 97.6 F L Temperature Source Temporal Pulse Rate 78 Respiratory Rate 14 Blood Pressure 139/87 H Blood Pressure Mean 104 Pulse Ox 95 Oxygen Delivery Method Room Air Blood pressure slightly elevated. Positive well nourished and well developed General Appearance ED: well developed and NAD HEENT Reports moist mucous membranes HEENT Narrative: Head is atraumatic normocephalic. Ears normal. Eyes PERRL and EOMs intact bilaterally General Eye ED: Negative for pale conjunctiva or scleral icterus Neck no lymphadenopathy, supple and no JVD Resp normal respiratory effort and clear to auscultation bilaterally Cardio regular rate, regular rhythm, S1 normal heart sound, S2 normal heart sound and no murmurs GI normal to inspection, nondistended, normoactive bowel sounds, soft to palpation, non-tender, non-distended and no masses GI Narrative: There is no abdominal bruit. Back/Spine normal to inspection and no thoracic nor lumbar tenderness Back/Spine Narrative: Twisting to the right causing discomfort. He has less discomfort twisting to the left. Rising from supine position causes him discomfort. General Back: Negative for CVA tenderness Lumbar Spine / Lower Back: Negative for ROM limited Extremity normal to inspection and no clubbing, cyanosis or edema General Extremety ED: Negative for edema General Extremity: Negative for edema Neuro oriented x3 and no sensory deficits noted Sensorium / Orientation: alert Psych mental status grossly normal Skin no rashes or lesions noted and no wounds MDM MDM MDM Narrative Medical decision making narrative: Patient's history and physical discussed with Renato espinoza. There is no concern for cardiac pulmonary or vascular issues. Patient was treated with opiate analgesic. Patient requested muscle relaxant. Patient was informed that I do not prescribe muscle relaxants. He also was told based on his age and medical problems and no muscle action does not recommended and these medications are and what is known is the biers list. Discharge Plan Triage Chief Complaint: Back ED Provider: Samuel Chadwick Dx/Rx/DC Orders Clinical Impression: Acute right-sided back pain Instructions: ED Back Pain (Acute or Chronic) Prescriptions: New hydrocodone-acetaminophen [hydrocodone-acetaminophen] 5-325 mg tablet 1 tab PO Q6H PRN PRN (Reason: Pain) 3 Days Qty: 10 0RF No Action atorvastatin 20 MG tablet 20 mg PO QHS aspirin 81 MG tablet 81 mg PO DAILY@0800 levothyroxine 25 MCG tablet 25 mcg PO DAILY oxycodone 5 MG tablet 5 mg PO Q8H PRN PRN (Reason: Severe Pain (-05/14)) 5 Days Qty: 14 0RF Oxygen, Home [Home Oxygen] 2 lpm NASAL CONT Qty: 1 0RF Rx Instructions: Primary Care Provider: Andres Scruggs Referrals: Andres Scruggs MD [Primary Care Provider] - 3-5 Days if not improving Activity Restrictions/Additional Instructions: 1. Apply ice to your back 6-10 times a day. 2. Would not recommend doing a lot of bending, crouching or lifting. Disposition Disposition: Home, Self Care
== END 2023-03-07 13:07 | disposition home or self-care (01) ==
LOC: ED 13:07
PROVIDERS: Emergency Provider Emergency Medicine; PCP Internal Medicine; Visit Provider Emergency Medicine
DX: M54.50 Low back pain, unspecified (principal); M25.511 Pain in right shoulder; E03.9 Hypothyroidism, unspecified; Z85.71 Personal history of Hodgkin lymphoma; Z79.899 Other long term (current) drug therapy; Z79.82 Long term (current) use of aspirin; Z79.890 Hormone replacement therapy
CPT/HCPCS: 99282

== ENCOUNTER 2024-01-23 19:30 | Inpatient (IN) | payer MEDICARE, SELFPAY ==
[2024-01-23] VITALS (9 sets, daily range): BP systolic 143–150; BP diastolic 83–86; PULSE 61–87; RESP 16–22; TEMP 36.4; O2SAT 77–97
--- NOTE | 2024-01-23 19:52 | ED.VIS.DYS ---
HPI History of Present Illness Chief Complaint: Shortness of Breath Informant: patient Onset/Context/Timing Onset: Weeks (2) Context: gradual Timing: Continuous Quality: Positive for Dyspnea on exertion Worsened by: Exertion Relieved by: Rest Associated Symptoms Negative for cough, rhinorrhea, post nasal drip, ear pain, fever, sore throat, chills, sweats, clear sputum, white sputum, yellow sputum or green sputum Chest Pain: Positive for Tightness Narrative Narrative: Patient presents with shortness of breath that has been getting worse over the past 2 weeks. Patient states it is gradually getting worse. Patient states his breathing is worse with any exertion. Patient states it is better with rest. Patient admits to some tightness across his chest. Patient saw his primary care physician today. Patient's pulse oximeter was 87% at his office. Patient had an EKG there which showed some T wave inversion in the anterior leads. Patient was then referred to the emergency department. Patient states this does feel somewhat similar to when he had a pneumothorax. PE Risk Factors: Positive for Cancer; Negative for OCP + Smoking + > 35, Prior DVT or PE, Recent immobilization, Recent surgery or Recent travel [facility] Medical History (Updated 01/23/24 @ 23:[address] Berto Montelongo, ) Hypothyroidism Hodgkin's lymphoma Home Medications ?Medication ?Instructions ?Recorded ?Last Taken ?Type atorvastatin 20 mg tablet 20 mg PO QHS 09/25/17 Unknown History amlodipine 5 mg tablet 5 mg PO DAILY 01/23/24 Unknown History levothyroxine 112 mcg tablet 112 mcg PO DAILY 01/23/24 Unknown History (Synthroid) meloxicam 7.5 mg tablet 7.5 mg PO DAILY 01/23/24 Unknown History Allergy/AdvReac Type Severity Reaction Status Date / Time bleomycin Allergy Other Verified 01/23/24 19:35 Surgical History Status post ORIF of fracture of ankle Social History household members: spouse Smoking Status: Never smoker ROS ROS ED Constitutional Constitutional ED: Denies chills or fever(s) Eyes Eyes: Denies blurry vision or change in vision ENT ENT ED: Denies rhinorrhea or sore throat Cardiovascular Cardiovascular: Reports chest pain; Denies palpitations Respiratory/Chest Respiratory/Chest: Reports cough and dyspnea Gastrointestinal Gastrointestinal: Denies nausea or vomiting Genitourinary Genitourinary ED: Denies dysuria or hematuria Musculoskeletal Musculoskeletal: Reports back pain; Denies neck pain Integumentary Denies abscess or rash Neurologic Neurologic: Denies headache(s) or weakness Allergic/Immunologic Allergic/Immunologic ED: Denies mouth swelling or urticaria EXAM Physical Exam Const Vital Signs: 01/23/24 19:32 01/23/24 19:35 01/23/24 19:35 Temperature 97.6 F L 97.6 F L Temperature Source Temporal Temporal Pulse Rate 73 73 Respiratory Rate 16 16 Respiratory Effort Respiratory Depth Respiratory Pattern Blood Pressure 150/83 H 150/83 H Blood Pressure Mean 105 105 Pulse Ox 77 92 92 Oxygen Delivery Method Room Air Nasal Cannula Nasal Cannula Oxygen Flow Rate (L/min) 4 2 01/23/24 19:58 01/23/24 20:06 01/23/24 20:12 Temperature Temperature Source Pulse Rate 66 Respiratory Rate 20 H Respiratory Effort Short of Breath Respiratory Depth Normal Respiratory Pattern Normal Normal Blood Pressure Blood Pressure Mean Pulse Ox Oxygen Delivery Method Nasal Cannula Room Air Oxygen Flow Rate (L/min) 01/23/24 20:31 01/23/24 22:00 01/23/24 23:00 Temperature Temperature Source Pulse Rate 87 63 61 Respiratory Rate 22 H 16 21 H Respiratory Effort Respiratory Depth Respiratory Pattern Blood Pressure 143/83 H 145/84 H 143/86 H Blood Pressure Mean 103 104 105 Pulse Ox 95 97 96 Oxygen Delivery Method Nasal Cannula Nasal Cannula Oxygen Flow Rate (L/min) 3 Positive well nourished and well developed General Appearance ED: well developed and NAD HEENT Reports moist mucous membranes Neck supple, no meningeal signs and no JVD Resp normal respiratory effort Auscultation: diminished lung sounds bilateral Cardio regular rate and regular rhythm GI non-tender and non-distended Palpation: soft Neuro oriented x3, CN's II-XII intact bilaterally and no sensory deficits noted Denae Coma Scale: document GCS findings Spontaneous Obeys Commands Oriented 15 Sensorium / Orientation: alert Speech: speech normal Motor Exam: strength 5/5 throughout Psych mental status grossly normal MDM MDM MDM Narrative Medical decision making narrative: Differential diagnosis includes pneumonia, pneumothorax, congestive heart failure, pulmonary embolism, cardiac dysrhythmia, cardiac ischemia, and electrolyte abnormality. EKG will be obtained to assess for cardiac dysrhythmia and cardiac ischemia. Chest x-ray will be obtained to assess for pneumonia and pneumothorax. CBC will be obtained to assess for leukocytosis and anemia. Basic metabolic profile will be obtained to assess for electrolyte abnormality and renal function. D-dimer will be obtained to assess for pulmonary embolism. High-sensitivity troponin will be obtained to assess for cardiac ischemia. BNP will be obtained to assess for congestive heart failure. Lab Data Attestation: I reviewed the patient's lab results. Lab results narrative: CBC was reviewed. Hemoglobin was slightly elevated at 17.2. The remainder is within normal limits. D-dimer was reviewed and was 0.52. This is normal for the patient's age. Basic metabolic profile was reviewed. BUN was slightly elevated at 27. The remainder was within normal limits. BNP was reviewed and was only slightly elevated at 176.6. High-sensitivity troponin was reviewed and was normal at 19. 2-hour repeat high-sensitivity troponin was reviewed and was normal at 19. COVID-19 PCR was reviewed and was negative. Influenza PCR was reviewed and was negative for influenza A and influenza B. RSV PCR was reviewed and was negative. Labs: Laboratory Results - last 24 hr 01/23/24 01/23/24 19:49 22:17 WBC 8.0 RBC 5.41 Hgb 17.2 H Hct 53.6 MCV 99.1 H MCH 31.8 MCHC 32.1 RDW Std Deviation 48.1 H RDW Coeff of Kathie 13.2 Plt Count 152 MPV 12.6 H Immature Gran % (Auto) 0.400 Neut % (Auto) 71.8 H Lymph % (Auto) 15.8 L Buchanan % (Auto) 9.1 Eos % (Auto) 2.0 Baso % (Auto) 0.9 Absolute Neuts (auto) 5.7 Absolute Lymphs (auto) 1.26 Nucleated RBC % 0 D-Dimer Quant (PE/DVT) 0.52 H* Sodium 137 Potassium 4.8 Chloride 108 H Carbon Dioxide 25.0 Anion Gap 4 L BUN 27 H Creatinine 1.11 Est GFR (MDRD) Af Amer 84 Est GFR (MDRD) Non-Af 69 BUN/Creatinine Ratio 24.3 H Glucose 97 Calcium 8.9 Troponin I High Sens 19 19 B-Natriuretic Peptide 176.6 H Radiography Chest X-Ray - ED: 2 View, Read by ED Physician, Read by Radiologist, No Acute Disease and Chronic Changes Diagnostic Testing: Clinical Impression(s) from Imaging Studies Chest X-Ray 01/23/24 20:22 IMPRESSION: Mild chronic interstitial changes.. Electronically Signed: Doe Gilmore MD at 20:56 EDT Reading Location ID and State: [address] [place] [address] Tel , Service support , PA and lateral chest x-ray was obtained. There are 2 views. On my independent interpretation, lung kelly show chronic interstitial changes. There is normal cardiac silhouette. Bony thorax is normal. There is no acute process noted. Radiologist also interpreted the x-ray and agrees. EKG Initial EKG: Attestation: I personally reviewed and interpreted this EKG as follows: Interpretation: Sinus Rhythm (64), LAFB and Non-Specific ST Changes Comments: EKG was obtained. On my independent interpretation, it shows normal sinus rhythm with a rate of 64. AK interval was normal at 166 ms. QRS interval was normal at 92 ms. QTc interval was normal at 137 ms. There is left axis deviation at -89. There are nonspecific T wave inversions in leads V1 and V2 which are new compared to previous EKG dated 02/27/2018. Prior EKG tracings: available for review Prior: Changed (02/27/2018) Treatment and Re-Evaluation :: Patient was given a DuoNeb aerosol here. Patient was able to ambulate here in the emergency department on room air. Patient maintaining saturation above 90% while ambulating, however, after he sat down his pulse oximeter dropped to 87% on room air. Patient placed back on oxygen. Patient was advised of need for hospitalization. Case was discussed with the hospitalist. He will admit the patient to his service. He recommended giving the patient Solu-Medrol. This was ordered. Patient understood and was agreeable with the plan. All questions were answered. Discharge Plan Triage Chief Complaint: Shortness of Breath ED Provider: Berto Montelongo Dx/Rx/DC Orders Clinical Impression: Dyspnea, Hypoxia, Pulmonary fibrosis Prescriptions: No Action atorvastatin 20 MG tablet 20 mg PO QHS amlodipine 5 mg tablet 5 mg PO DAILY meloxicam 7.5 mg tablet 7.5 mg PO DAILY levothyroxine [Synthroid] 112 mcg tablet 112 mcg PO DAILY Primary Care Provider: Andres Scruggs Referrals: Andres Scruggs MD [Primary Care Provider] - Print Language: Greek Disposition Disposition: Acute Care Hospital [facility]
--- NOTE | 2024-01-23 19:59 | EKG12_ITS ---
Test Reason : DYSRHYTHMIA Blood Pressure : / mmHG Vent. Rate : 064 BPM Atrial Rate : 064 BPM P-R Int : 166 ms QRS Dur : 092 ms QT Int : 424 ms P-R-T Axes : 027 -89 018 degrees QTc Int : 437 ms Normal sinus rhythm Left anterior fascicular block Abnormal ECG Confirmed by Hakan Batista ([id number]), senior editor GUEVARA ZELAYA ([id number]) on 01/28/2024 5:59:47 AM Referred By: JELANI Confirmed By:Hakan Batista
[2024-01-23] MEDS: Ipratropium/Albuterol Sulfate 3 ML AMPUL.NEB INHALATION (20:06)
[2024-01-23 20:15] LABS: Absolute Lymphocyte Count 1.26 X10^3/uL (0.83-4.51); Absolute Neutrophil Count 5.7 X10^3/uL (2.0-7.7); Basophil# 0.07 X10^3/uL; Basophil% 0.9 % (0-1); Eosinophil# 0.16 X10^3/uL; Hematocrit 53.6 % (40-54); Hemoglobin 17.2 g/dL (13.0-16.5); Lymphocyte # 1.26 X10^3/ul (0.83-4.51); Lymphocyte % 15.8 % (19-41); Mean Corp Hgb Conc 32.1 g/dL (32-36); Mean Corpuscular Hgb 31.8 pg (27.0-32.0); Mean Corpuscular Volume 99.1 fL (80-94); Mean Platelet Vol. 12.6 fl (6.2-12.0); Monocyte# 0.73 X10^3/uL; Monocyte% 9.1 % (0-10); NRBC Flagged by Analyzer 0 % (0-5); Neutrophil # 5.73 X10^3/uL (2.7-7.7); Neutrophil % 71.8 % (47-70); Platelet Count 152 K/mm3 (150-450); RBC Distribution Width CV 13.2 % (11.6-14.6); RBC Distribution Width SD 48.1 fl (35.1-43.9); Red Blood Count 5.41 M/mm3 (4.6-6.2)
--- NOTE | 2024-01-23 20:22 | RAD_ITS ---
STUDY: X-RAY CHEST REASON FOR EXAM: Male, 73 years old. Dyspnea TECHNIQUE: PA and lateral COMPARISON: March 04, 2018 FINDINGS: Lungs are mildly hyperinflated and prominence of the interstitial markings more pronounced in the lower lobes. There is no demonstrated pleural abnormality. Normal size heart. Normal mediastinum . Mild bilateral hilar prominence unchanged since prior exam Normal visualized pulmonary arteries. Mildly calcified aortic arch and descending thoracic aorta. Dorsal spine demonstrates scoliosis and degenerative change. Normal visualized ribs, clavicles, and shoulders. There is no demonstrated abnormality of the visualized soft tissue structures of the upper abdomen. RAD/Chest PA and Lateral IMPRESSION: Mild chronic interstitial changes.. Electronically Signed: Doe Gilmore MD at 20:56 EDT ,
[2024-01-23 20:45] LABS: BNP,B-Type NATRIURETIC PEPTIDE 176.6 pg/mL (0-100)
[2024-01-23 20:48] LABS: Anion Gap 4 (5-15); BUN 27 mg/dL (7-18); BUN/Creat Ratio 24.3 RATIO (10-20); Calcium,Total 8.9 mg/dL (8.5-10.1); Chloride 108 mmol/L (98-107); Creatinine, Serum 1.11 mg/dL (0.70-1.30); EST Glomerular Filtration Rate 69 mL/min (>60); Est Glom Filt Rate - Afr Amer 84 mL/min (>60); Glucose 97 mg/dL (74-106); Potassium 4.8 mmol/L (3.5-5.1); Sodium Level 137 mmol/L (136-145); Troponin-I HS (w/2H Reflex) 19 pg/mL (3.0-78.0)
[2024-01-23 20:51] LABS: D-Dimer Quantitative (DVT/PE) 0.52 FEU/ug/m (0.27-0.49)
[2024-01-23 22:10] LABS: Reflex Troponin-HS? (from REC) Y
[2024-01-23 22:53] LABS: Troponin-I HS 19 pg/mL (3.0-78.0)
--- NOTE | 2024-01-23 23:50 | HP.PCM.HOS_ITS ---
[facility] - General General Date of Admission: 01/24/24 Date of Service: 01/23/24 Chief Complaint: CEDENO. [facility] Narrative ROBERT NAVAS, is a 73 M with a past medical history of essential hypertension, hyperlipidemia, hypothyroidism, history of ankle fracture; s/p ORIF, osteoarthritis, history of sigmoid diverticulosis, obstructive sleep apnea, asthma, history of ~50% Right pneumothorax after bronchoscopy requiring chest tube placement (2018) and history of Hodgkin's lymphoma; s/p chemotherapy with bleomycin with subsequent pulmonary fibrosis who presents to [facility] ER complaining of CEDENO. Mr. Navas reports his symptoms began approximately 2 weeks prior to admission with a gradual onset of progressively worsening dyspnea on exertion. He also admits to associated chest tightness and he notes his symptoms are made better by rest but quickly come back with activity. He was seen by his primary care physician earlier today was noted to have a pulse oximeter with level indicating hypoxia at 87% at the office and was therefore encouraged to come to the ER for further evaluation and treatment. He added that his symptoms are similar to his previous pneumothorax and he admits that the extreme heat has made his breathing significantly worse. There is no report of fever, chills, nausea, vomiting, palpitations, heart racing or diaphoresis but he does admit to nonproductive cough, pleuritic chest pain made worse with deep breathing and exertion and mild back pain and he admits to being in some denial about his declining lung function resulting in him trying to power through and ignore it in the hopes that it would go away. In the ER his chest x-ray revealed mild chronic interstitial changes with a BNP of only 176.6 pg/mL and he was then diagnosed with acute exacerbation of asthma/chronic pulmonary fibrosis complicated by clinical evidence of respiratory insufficiency along with laboratory evidence of erythrocytosis with hemoglobin of 17.2 g/dL present on admission and he was then admitted to the general medical floor for ongoing care for stay that is expected to extend beyond 2 midnights. [facility] Medical History (Updated 01/24/24 @ 05:[address] Rey Patel DO) Hypothyroidism Hodgkin's lymphoma Home Medications ?Medication ?Instructions ?Recorded ?Last Taken ?Type atorvastatin 20 mg tablet 20 mg PO QHS 09/25/17 Unknown History amlodipine 5 mg tablet 5 mg PO DAILY 01/23/24 Unknown History levothyroxine 112 mcg tablet 112 mcg PO DAILY 01/23/24 Unknown History (Synthroid) meloxicam 7.5 mg tablet 7.5 mg PO DAILY 01/23/24 Unknown History Allergy/AdvReac Type Severity Reaction Status Date / Time bleomycin Allergy Other Verified 01/23/24 19:35 Surgical History Status post ORIF of fracture of ankle Social History household members: spouse Smoking Status: Never smoker ROS ROS Narrative Review of systems: General: Patient denies fever or chills. HENT: Denies headache, denies stuffy nose, denies sore throat EYES: Denies changes in vision or discharge from eyes Resp: Patient admits to dyspnea on exertion with pleuritic chest pain causing tightness with exertion Cardiac: Patient admits to pleuritic type chest pain but denies heart racing or palpitations. GI: Denies abdominal pain, denies changes in bowel, denies nausea or vomiting : Denies changes in urination Extremity: Denies swelling Musculoskeletal: Patient admits to back pain but denies neck pain, arthralgias or myalgias. Neuro: Patient denies headache, paresthesias or focal neurologic deficits. Heme: Denies any bleeding or bruising Skin: Denies rashes Psychiatric: No complaints voiced related uncontrolled depression or anxiety. Endocrine: No polyuria, polydipsia or polyphagia. The rest of the 14 point ROS was negative except for positives in HPI. Vital Signs Vital Signs Vital Signs: 01/23/24 19:32 01/23/24 19:35 01/23/24 19:35 Temperature 97.6 F L 97.6 F L Temperature Source Temporal Temporal Pulse Rate 73 73 Respiratory Rate 16 16 Respiratory Effort Respiratory Depth Respiratory Pattern Blood Pressure 150/83 H 150/83 H Blood Pressure Mean 105 105 Pulse Ox 77 92 92 Oxygen Delivery Method Room Air Nasal Cannula Nasal Cannula Oxygen Flow Rate (L/min) 4 2 01/23/24 19:58 01/23/24 20:06 01/23/24 20:12 Temperature Temperature Source Pulse Rate 66 Respiratory Rate 20 H Respiratory Effort Short of Breath Respiratory Depth Normal Respiratory Pattern Normal Normal Blood Pressure Blood Pressure Mean Pulse Ox Oxygen Delivery Method Nasal Cannula Room Air Oxygen Flow Rate (L/min) 01/23/24 20:31 01/23/24 22:00 01/23/24 23:00 Temperature Temperature Source Pulse Rate 87 63 61 Respiratory Rate 22 H 16 21 H Respiratory Effort Respiratory Depth Respiratory Pattern Blood Pressure 143/83 H 145/84 H 143/86 H Blood Pressure Mean 103 104 105 Pulse Ox 95 97 96 Oxygen Delivery Method Nasal Cannula Nasal Cannula Oxygen Flow Rate (L/min) 3 Physical Exam Const alert, oriented x3, no apparent distress and average body habitus General Appearance: cooperative HEENT normocephalic, head/scalp atraumatic, hearing grossly normal bilaterally and moist oral mucous membranes Eyes PERRL and EOMs intact bilaterally Neck no lymphadenopathy and supple Resp Resp Narrative: Diminished air entry throughout with scattered wheezing. Cardio regular rate and regular rhythm GI normal to inspection, nondistended, normoactive bowel sounds, soft to palpation, non-tender and non-distended Extremity normal to inspection and full ROM Skin Skin Narrative: Patient denies rash, jaundice or abscess. Neuro oriented x3, CN's II-XII intact bilaterally, moves all extremities and no focal motor deficits Sensorium / Orientation: awake, alert, oriented to person, oriented to place and oriented to time Speech: speech normal Psych affect normal Results Medical Records Data Attestation: I reviewed the patient's medical records Lab / Micro Data Attestation: I reviewed the patient's lab results. 01/23/24 19:49 01/23/24 19:49 Labs: Laboratory Results - last 24 hr 01/23/24 19:49: WBC 8.0, RBC 5.41, Hgb 17.2 H, Hct 53.6, MCV 99.1 H, MCH 31.8, MCHC 32.1, RDW Std Deviation 48.1 H, RDW Coeff of Kathie 13.2, Plt Count 152, MPV 12.6 H, Immature Gran % (Auto) 0.400, Neut % (Auto) 71.8 H, Lymph % (Auto) 15.8 L, [place] % (Auto) 9.1, Eos % (Auto) 2.0, Baso % (Auto) 0.9, Absolute Neuts (auto) 5.7, Absolute Lymphs (auto) 1.26, Nucleated RBC % 0, D-Dimer Quant (PE/DVT) 0.52 H*, Sodium 137, Potassium 4.8, Chloride 108 H, Carbon Dioxide 25.0, Anion Gap 4 L, BUN 27 H, Creatinine 1.11, Est GFR (MDRD) Af Amer 84, Est GFR (MDRD) Non-Af 69, BUN/Creatinine Ratio 24.3 H, Glucose 97, Calcium 8.9, Troponin I High Sens 19, B-Natriuretic Peptide 176.6 H 01/23/24 22:17: Troponin I High Sens 19 Micro: Microbiology 01/23/24 20:20 Mucosa - Nose SARS-CoV-2, Influenza & RSV (PCR) - Final Imaging Radiology Impression Chest X-Ray 01/23/24 20:22 IMPRESSION: Mild chronic interstitial changes.. Electronically Signed: Doe Gilmore MD at 20:56 EDT Reading Location ID and State: [facility] / [place] Tel , Service support , Assessment & Plan Assessment/Plan (1) Acute asthma exacerbation: QUALIFIERS: Asthma persistence: intermittent Asthma severity: u nspecified severity Qualified Code(s): J45.21 - Mild intermittent asthma with (acute) exacerbation (2) Pulmonary fibrosis: (3) Respiratory insufficiency: (4) Erythrocytosis: (5) Hypothyroidism: QUALIFIERS: Hypothyroidism type: unspecified Qualified Code(s): E 03.9 - Hypothyroidism, unspecified (6) History of Hodgkin's lymphoma: (7) Obesity (BMI 30.0-34.9): PLAN: Plan 1. Acute exacerbation of asthma/chronic pulmonary fibrosis as a consequence of adverse drug reaction to Bleomycin used to treat Hodgkin's lymphoma - Admit to general medical floor. Continue IV Solumedrol begun in the ER and taper dose to 60 mg IV BID. Give scheduled and as needed nebulizers. Give Protonix for GI prophylaxis with patient on systemic corticosteroids. Finally, we will check VBG to establish baseline. 2. Respiratory insufficiency with decreasing exercise tolerance and progressively worsening dyspnea on exertion exacerbated by severe heat attributable to #1 - Wean supplemental oxygen as tolerated. Patient may require continuous oxygen supplementation at some point in the near future. 3. Obstructive sleep apnea complicating #1 & #2 - Start nocturnal CPAP. 4. History of ~50% Right pneumothorax after bronchoscopy requiring chest tube placement (2018) - Noted. 5. Incidentally noted polycythemia with hemoglobin of 17.2 g/dL present on admission - Noted. Likely due to chronic and progressively worsening hypoxia. Patient will be volume resuscitated and CBC will be rechecked in the a.m. along with iron levels and ferritin. Finally, we will screen for JAK2 mutation with previous history of Hodgkin's lymphoma and subsequent chemotherapy increasing risk of other potential neoplastic processes. 6. Essential hypertension - Continue home regimen as previous plus give as needed IV hydralazine for systolic blood pressure greater than 160 mmHg. Check echocardiogram to evaluate LVEF with decreasing functional status and mildly elevated BNP present on admission. 7. Obesity; with BMI of 31.2 this admission - Weight loss will be recommended. Check TSH. 8. Hyperlipidemia - Resume statin. 9. Hypothyroidism - Continue Synthroid as previous and check TSH. 10. History of ankle fracture; s/p ORIF - Noted. 11. Osteoarthritis - Give Tylenol as needed. 12. History of sigmoid diverticulosis - Noted. 13. Mildly elevated d-dimer of 0.52 present on admission normal after adjusted for age - Noted. 14. DVT prophylaxis - Lovenox 40 mg sq daily plus SCD's. Total time: Approximately 75 minutes. Charges/Coding Visit Charges Inpatient E&M: 30122 Init Hosp L3
[2024-01-24] VITALS (11 sets, daily range): BP systolic 120–161; BP diastolic 78–95; PULSE 58–80; RESP 16–30; TEMP 36.1–36.7; O2SAT 84–98; BMI 31.1; BMI 31.4
[2024-01-24] MEDS: MethylPREDNISolone 125 MG/2 ML Vial 60 MG IV ×3 (00:03→21:37)
[2024-01-24 01:11] LABS: Ferritin 105 ng/mL (26-388); Iron 47 ug/dL (65-175); Iron Binding Capacity,Total 314 ug/dL (250-450)
--- NOTE | 2024-01-24 01:16 | ECHOD_ITS ---
Reason For Study: Pulmonary HTN Procedure This was a 2D Doppler, Color Flow transthoracic echocardiogram. The study was technically difficult. No Definity used due to elevated Pulmonary Pressures. Exam performed portable in patient room. Left Ventricle Normal LV size. Mild concentric left ventricular hypertrophy. Septal flattening consistent with RV pressure overload. Left ventricular systolic function is normal. The estimated ejection fraction is 60 %. Stage 1 diastolic dysfunction. Right Ventricle Mildly dilated right ventricle. Normal systolic function. Atria Normal left atrium. Normal right atrium. Mitral Valve The mitral valve is structurally normal. No prolapse or stenosis seen. Tricuspid Valve Normal tricuspid valve. Mild to moderate (1-2+) tricuspid valve insufficiency. Pulmonary artery systolic pressure is 97 mmHg. Severe pulmonary hypertension. Aortic Valve Trisinus/trileaflet aortic valve. Mild focal aortic valve calcification. There is no aortic stenosis. Pulmonic Valve Normal pulmonic valve. Great Vessels Normal aortic root. Pericardium/Pleural No pericardial effusion. MMode/2D Measurements & Calculations LVIDd: 4.7 cm IVSd: 1.2 cm Ao root diam: 3.6 cm LVIDs: 2.6 cm LVPWd: 1.1 cm LA dimension: 4.5 cm RVDd: 4.0 cm FS: 43.7 % LAV(MOD-bp): 52.0 ml LA A4 area: 20.2 cm2 RA A4 area: 20.0 cm2 LAV(MOD-bp) Indexed: 22.5 ml/m2 LAV(MOD-sp2): 49.2 ml LAV(MOD-sp4): 52.6 ml TAPSE: 1.5 cm Time Measurements MV dec time: 0.39 sec Doppler Measurements & Calculations MV E max felipe: 52.7 cm/sec Lat Peak E' Felipe: 13.4 cm/sec Med Peak E' Felipe: 6.5 cm/sec MV A max felipe: 82.3 cm/sec E/E' lat: 3.9 E/E' med: 8.1 MV E/A: 0.64 MV V2 max: 83.5 cm/sec MV P1/2t max felipe: 53.1 cm/sec Ao V2 max: 137.5 cm/sec MV max P.8 mmHg MV P1/2t: 123.5 msec Ao max P.6 mmHg MV V2 mean: 44.2 cm/sec MV mean P.90 mmHg MV dec slope: 126.0 cm/sec2 MV V2 VTI: 21.4 cm MVA(P1/2t): 1.8 cm2 LV V1 max: 97.1 cm/sec PA V2 max: 93.0 cm/sec TR max felipe: 484.6 cm/sec LV V1 max P.8 mmHg TR max P.9 mmHg ECHO/Echo Complete Interpretation Summary The estimated ejection fraction is 60 %. Stage 1 diastolic dysfunction. Septal flattening consistent with RV pressure overload. Mildly dilated right ventricle. Mild to moderate (1-2+) tricuspid valve insufficiency. Severe pulmonary hypertension. The study was technically difficult. Ordering Physician: Rey Patel Performed By: Jamir Garcia RCS
[2024-01-24] MEDS: 0.9% Normal Saline (1000mL) 1,000 ML 50 ML IV ×2 (01:36→21:36)
[2024-01-24] MEDS: Levothyroxine 112 MCG Tablet PO (05:13)
[2024-01-24 06:57] LABS: Blood Gas Specimen Type VEN; O2 Delivery Device Not entered; SITE Not entered; VBG BASE EXCESS -4 mmol/L (-1.0-3.5); VBG Bicarbonate 21 mmol/L (22-26); VBG PO2 126 mmHg (25-40); VBG SO2 99 % (50-70); VBG TCO2 22 mmol/L (23-33); VBG pH 7.39 (7.32-7.42)
[2024-01-24 07:01] LABS: Absolute Lymphocyte Count 0.35 X10^3/uL (0.83-4.51); Absolute Neutrophil Count 6.2 X10^3/uL (2.0-7.7); Basophil# 0.02 X10^3/uL; Basophil% 0.3 % (0-1); Hematocrit 51.2 % (40-54); Hemoglobin 16.4 g/dL (13.0-16.5); Lymphocyte # 0.35 X10^3/ul (0.83-4.51); Lymphocyte % 5.3 % (19-41); Mean Corpuscular Hgb 31.8 pg (27.0-32.0); Mean Corpuscular Volume 99.4 fL (80-94); Mean Platelet Vol. 12.4 fl (6.2-12.0); Monocyte# 0.06 X10^3/uL; Monocyte% 0.9 % (0-10); NRBC Flagged by Analyzer 0 % (0-5); Neutrophil # 6.15 X10^3/uL (2.7-7.7); POSITIVE DIFFERENTIAL YES; Platelet Count 134 K/mm3 (150-450); RBC Distribution Width CV 12.8 % (11.6-14.6); RBC Distribution Width SD 47.6 fl (35.1-43.9); Red Blood Count 5.15 M/mm3 (4.6-6.2); White Blood Count 6.6 K/mm3 (4.4-11.0)
[2024-01-24 07:35] LABS: ALB/GLOB Ratio 0.8 RATIO (0.9-2.4); AST(SGOT) 26 U/L (15-37); Alanine Aminotransfer ALT/SGPT 28 U/L (16-61); Albumin, Serum 3.2 g/dL (3.2-5.0); Alkaline Phosphatase 87 U/L (45-117); Anion Gap 8 (5-15); BUN 24 mg/dL (7-18); BUN/Creat Ratio 28.1 RATIO (10-20); Calcium,Total 8.4 mg/dL (8.5-10.1); Chloride 107 mmol/L (98-107); Creatinine, Serum 0.85 mg/dL (0.70-1.30); EST Glomerular Filtration Rate 94 mL/min (>60); Est Glom Filt Rate - Afr Amer 114 mL/min (>60); Estimated Creatinine Clearance 102.35 ml/min; Globulin 4.2 g/dL (2.2-4.2); Glucose 153 mg/dL (74-106); Magnesium 2.2 mg/dL (1.6-2.6); Phosphorus 2.6 mg/dL (2.5-4.9); Potassium 4.7 mmol/L (3.5-5.1); Protein, Total 7.4 g/dL (6.4-8.2); Sodium Level 137 mmol/L (136-145); Thyroid Stim Hormone (TSH) 0.57 uIU/mL (0.358-3.74)
[2024-01-24] MEDS: Enoxaparin 40 MG/0.4 ML Syringe SC (08:47)
[2024-01-24] MEDS: Meloxicam 7.5 MG Tablet PO (08:48)
[2024-01-24] MEDS: Pantoprazole Sodium 40 MG Tablet PO (08:48)
[2024-01-24] MEDS: amLODIPine 5 MG Tablet PO (08:48)
--- NOTE | 2024-01-24 11:04 | PCM.PN.HOSP ---
Reason for Visit Reason for Visit: Diagnoses Secondary polycythemia (01/24/24) Hypothyroidism, unspecified (01/24/24) Obesity, unspecified (01/24/24) Mild intermittent asthma with (acute) exacerbation (01/24/24) Unspecified asthma with (acute) exacerbation (01/24/24) Pulmonary fibrosis, unspecified (01/24/24) Other abnormalities of breathing (01/24/24) Personal history of Hodgkin lymphoma (01/24/24) Subjective Subjective Patient admitted yesterday evening for worsening shortness of breath with exertion for the last 2 weeks. Patient has history of pulmonary fibrosis secondary to chemotherapy he received for Hodgkin's lymphoma about 15 years ago. He was diagnosed with an acute exacerbation of pulmonary fibrosis on admission. I saw the patient at bedside this morning. Patient was having his echo done when I saw him. He was breathing comfortably on room air at rest when I saw him. He was conversing normally and had no conversational dyspnea. Patient states he has been doing fine at rest but has had fairly significant shortness of breath with exertion. He feels about the same this morning as he did overnight, states the treatments have not seem to be too helpful to this point. He denies any fevers or chills this morning. Denies any other new concerns today. Objective Data Objective Data Vital Signs: Vital Signs Temp Pulse Resp BP Pulse Ox O2 Del Method O2 Flow Rate 98.1 F 67 16 139/80 H 92 Room Air 2 01/24/24 08:46 01/24/24 08:46 01/24/24 08:46 01/24/24 08:46 01/24/24 08:46 01/24/24 08:46 01/24/24 08:28 Oxygen Flow Rate (L/min) 2 Oxygen Delivery Method Room Air Weight: 107.7 kg Body Mass Index (BMI) 31.4 Lab / Micro Data 01/24/24 06:43 01/24/24 06:43 Labs: Laboratory Results - last 24 hr 01/23/24 19:49: WBC 8.0, RBC 5.41, Hgb 17.2 H, Hct 53.6, MCV 99.1 H, MCH 31.8, MCHC 32.1, RDW Std Deviation 48.1 H, RDW Coeff of Kathie 13.2, Plt Count 152, MPV 12.6 H, Immature Gran % (Auto) 0.400, Neut % (Auto) 71.8 H, Lymph % (Auto) 15.8 L, [place] % (Auto) 9.1, Eos % (Auto) 2.0, Baso % (Auto) 0.9, Absolute Neuts (auto) 5.7, Absolute Lymphs (auto) 1.26, Nucleated RBC % 0, D-Dimer Quant (PE/DVT) 0.52 H*, Sodium 137, Potassium 4.8, Chloride 108 H, Carbon Dioxide 25.0, Anion Gap 4 L, BUN 27 H, Creatinine 1.11, Est GFR (MDRD) Af Amer 84, Est GFR (MDRD) Non-Af 69, BUN/Creatinine Ratio 24.3 H, Glucose 97, Calcium 8.9, Troponin I High Sens 19, B-Natriuretic Peptide 176.6 H 01/23/24 22:17: Iron 47 L, TIBC 314, Iron Saturation 15.0, Ferritin 105, Troponin I High Sens 19 01/24/24 06:43: WBC 6.6, RBC 5.15, Hgb 16.4, Hct 51.2, MCV 99.4 H, MCH 31.8, MCHC 32.0, RDW Std Deviation 47.6 H, RDW Coeff of Kathie 12.8, Plt Count 134 L, MPV 12.4 H, Immature Gran % (Auto) 0.500, Neut % (Auto) 93.0 H, Lymph % (Auto) 5.3 L, [place] % (Auto) 0.9, Eos % (Auto) 0.0, Baso % (Auto) 0.3, Absolute Neuts (auto) 6.2, Absolute Lymphs (auto) 0.35 L, Nucleated RBC % 0, Sodium 137, Potassium 4.7, Chloride 107, Carbon Dioxide 22.0, Anion Gap 8, BUN 24 H, Creatinine 0.85, Estim Creat Clear Calc 102.35, Est GFR (MDRD) Af Amer 114, Est GFR (MDRD) Non-Af 94, BUN/Creatinine Ratio 28.1 H, Glucose 153 H, Calcium 8.4 L, Phosphorus 2.6, Magnesium 2.2, Total Bilirubin 1.10 H, AST 26, ALT 28, Alkaline Phosphatase 87, Total Protein 7.4, Albumin 3.2, Globulin 4.2, Albumin/Globulin Ratio 0.8 L, TSH 0.57 Micro: Microbiology 01/23/24 20:20 Mucosa - Nose SARS-CoV-2, Influenza & RSV (PCR) - Final ABG Data ABG results: ABG 01/24/24 06:55 Specimen Type BALTAZAR Sample Site Not entered O2 % 2.0 VBG pH 7.39 VBG pO2 126 H VBG HCO3 21 L VBG Total CO2 22 L VBG O2 Sat (Calc) 99 H VBG Base Excess -4 L POC Mix VBG pCO2 Pt Tmp 35.0 L O2 Delivery Device Not entered Radiography Diagnostic Testing: Radiology Impression Chest X-Ray 01/23/24 20:22 IMPRESSION: Mild chronic interstitial changes.. Electronically Signed: Doe Gilmore MD at 20:56 EDT Reading Location ID and State: [facility] / [place] Tel , Service support , Physical Exam Const alert, oriented x3 and no apparent distress Constitutional Narrative: Pleasant elderly male, obese, laying comfortably in bed, conversing normally, in no acute distress. General Appearance: cooperative and comfortable HEENT normocephalic, head/scalp atraumatic, hearing grossly normal bilaterally, nasal mucous membranes and turbinates normal and moist oral mucous membranes Eyes PERRL, EOMs intact bilaterally and conjunctivae normal Neck full ROM Chest inspection of chest normal Resp normal respiratory effort and no use of accessory muscles Resp Narrative: Mildly decreased breath sounds bilaterally throughout with mild crackles noted in mid to lower lung zones. No wheezing noted. Breathing comfortably on room air at rest. Cardio regular rate, regular rhythm, no murmurs and peripheral pulses 2+ throughout GI normal to inspection, nondistended, normoactive bowel sounds, soft to palpation, non-tender and non-distended Back/Spine normal ROM Extremity normal to inspection, full ROM and no pedal edema Skin no rashes or lesions noted Neuro moves all extremities and no focal motor deficits Speech: speech normal Psych mental status grossly normal Assessment & Plan Assessment/Plan (1) Pulmonary fibrosis: (2) Respiratory insufficiency: (3) Erythrocytosis: PLAN: Plan Patient is a 73-year-old male who presented [facility] ED on 01/23/2024 with worsening shortness of breath on exertion. 1. Suspected worsening chronic pulmonary fibrosis with new hypoxia with exertion ? Presented with worsening dyspnea on exertion and mild hypoxia with exertion noted at PCP office. Has a known history of pulmonary fibrosis secondary to chemotherapy received for Hodgkin's lymphoma. Chest x-ray on admit showed mild chronic interstitial changes, no other abnormalities; notably appeared fairly similar to previous chest x-rays in 2018. Hemodynamically stable, noninfectious appearing. COVID/flu/RSV negative. Echo completed, read pending. Treated as acute exacerbation of pulmonary fibrosis on admission with IV steroids. Patient may have mild acute exacerbation but suspect his presentation is more due to chronic worsening of his pulmonary fibrosis over a longer period of time. Completed oxygen qualification testing on afternoon of 01/23, did not require any supplemental oxygen at rest but did require 4 L nasal cannula with exertion. Will de-escalate to p.o. steroids to start tomorrow and plan to complete 5-day course of steroids total. If patient remains stable overnight, will plan for discharge home tomorrow. 2. Mild erythrocytosis ? Hemoglobin 17.2 on admit, down trended to 16.4 on hospital day 2. Presumed secondary to chronic hypoxia. No need to monitor further CBCs at this time. Chronic medical conditions: ? Obesity: BMI 31 on admit. Complicates hospital course, care and prognosis. ? LAURO: Continue nocturnal CPAP. ? History of Hodgkin's lymphoma: Completed treatment about 15 years ago with no recurrence. ? Hypertension: Stable. Continue home amlodipine. ? Hyperlipidemia: Continue home statin. ? Hypothyroidism: TSH normal on admit. Continue home Synthroid. ? Osteoarthritis: Tylenol as needed for pain. ? History of right pneumothorax after bronchoscopy requiring chest tube placement (2018) DVT prophylaxis: Lovenox CODE STATUS: Full code, unverified Expected disposition: Home, 1 to 2 days Total clinical time spent by myself addressing the patient's medical issues, reviewing all the data, and collaborating with patient's care team: 35 minutes. Charges/Coding Visit Charges Inpatient E&M: 94300 Subs Hosp L2
--- NOTE | 2024-01-24 13:17 | CASEMGMT ---
PRISCA SILVA Assessment Face to Face with patient for initial transition planning/care coordination assessment. RN CM introduced self and role at [facility], pt voices understanding. Pt is A&Ox4 and is resting comfortably in the chair and is calm. Care providers, pharmacy, and demographics verified. Admitting dx: AE Asthma, Pulmonary Fibrosis PCP: Kael Specialists: Denies Preferred Pharmacy: [facility] Prescription Benefit: Yes LNOK: Gisel Reid (W) Living Arrangements: Pt lives with his in a 3 story home with 3 steps to enter ADLs/IADLs: Ind Transportation: Self DME: [employer]. Denies further needs. CM to follow in the case that the pt qualifies for home oxygen and to provide a list of local in network DME companies. HHC/SNF: Pt states Hx at the RU at [facility] Pt?s goal: Home Plan: 6-Click is 21. Pt was cleared by PT. Pt denies the need for HHC or OP Tx. Pt states that he wishes to return home once medically ready and states feeling safe doing so. Pt states that he plans to follow up with a [facility] as an OP and denies current needs. CM to follow to ensure a safe DC from [facility]. Barrett Miles RN, CM
--- NOTE | 2024-01-24 14:53 | CASEMGMT ---
RN CM in to discuss possible oxygen at discharge. Patient called for RN CM to review DME agencies. prefers [employer]. Patient and had no further questions or concerns. Green sheet on chart for possible oxygen at discharge.
[2024-01-24] MEDS: Atorvastatin Calcium 20 MG Tablet PO (21:37)
[2024-01-25 03:37] VITALS: BP 126/83; PULSE 72; RESP 18; TEMP 36.4; O2SAT 95
[2024-01-25] MEDS: Levothyroxine 112 MCG Tablet PO (05:14)
[2024-01-25 06:00] VITALS: BMI 32.0
[2024-01-25 08:14] VITALS: O2SAT 94
[2024-01-25 08:24] VITALS: BP 104/56; PULSE 65; RESP 18; TEMP 36.6; O2SAT 98
[2024-01-25] MEDS: MethylPREDNISolone 125 MG/2 ML Vial 60 MG IV (11:12)
[2024-01-25] MEDS: Meloxicam 7.5 MG Tablet PO (11:14)
[2024-01-25] MEDS: amLODIPine 5 MG Tablet PO (11:14)
[2024-01-25] MEDS: Pantoprazole Sodium 40 MG Tablet PO (11:14)
--- NOTE | 2024-01-25 11:31 | DCINST_ITS ---
Discharge Instructions Diet Discharge Diet: No restrictions Activity Discharge Activity: No Restrictions Follow Up Care Test Results: Test results from this visit will be discussed in further detail at your follow-up appointment, if applicable. Discharge Plan Admission Admit Date/Time: 01/24/24 00:21 Primary Reason for Your Visit: Worsening shortness of breath with exertion Attending Provider: Deshawn Parisi Primary Care Provider: Andres Scruggs Consulting Providers: Rey Patel Instructions Additional Instructions / Restrictions: Please take prednisone for 3 more days to complete a 5-day course of steroids total. Follow-up with the lung doctor in [place] as scheduled. Wear oxygen at home as needed to maintain an oxygen level greater than 88%. Discharge Orders/Prescriptions Prescriptions: New prednisone 20 mg tablet 40 mg PO DAILY 3 Days Qty: 6 0RF Continued atorvastatin 20 MG tablet 20 mg PO QHS amlodipine 5 mg tablet 5 mg PO DAILY meloxicam 7.5 mg tablet 7.5 mg PO DAILY levothyroxine [Synthroid] 112 mcg tablet 112 mcg PO DAILY Referrals / Follow Up: Andres Scruggs MD [Primary Care Provider] - Disposition Disposition (needs filled in before D/C Order can be placed): Home, Self Care
--- NOTE | 2024-01-25 11:34 | DS.PCM_ITS ---
Providers Date of Admission: 01/23/24 Date of Discharge: 01/25/24 Primary Care Physician: Dr. Andres Scruggs MD Reason For Visit: AE ASTHMA/CHRONIC PULMONARY FIBROSIS WITH Diagnosis Discharge Diagnosis (1) Pulmonary fibrosis: Status: Acute Code(s): J84.10 - Pulmonary fibrosis, unspecified (2) Respiratory insufficiency: Status: Acute Code(s): R06.89 - Other abnormalities of breathing (3) Erythrocytosis: Status: Acute Code(s): D75.1 - Secondary polycythemia (4) Severe pulmonary hypertension: Status: Acute Code(s): I27.20 - Pulmonary hypertension, unspecified Medications at Discharge Home Medications atorvastatin 20 mg tablet 20 mg PO QHS cholesterol 09/25/17 amlodipine 5 mg tablet 5 mg PO DAILY blood pressure 01/23/24 levothyroxine 112 mcg tablet (Synthroid) 112 mcg PO DAILY thyroid 01/23/24 meloxicam 7.5 mg tablet 7.5 mg PO DAILY pain 01/23/24 prednisone 20 mg tablet 40 mg (2 x 20 mg) PO DAILY 3 days #6 tabs 01/25/24 Hospital Course Operations None Procedures Transthoracic echo and - (Chest x-ray) Summary of Care Provided Minutes Spent on Discharge: 35 Hospital Course: Patient is a 73-year-old male who presented [facility] ED on 01/23/2024 with worsening shortness of breath on exertion. Hospital course as noted below. Discharged home with supplemental oxygen in stable condition on 01/24. 1. Suspected worsening chronic pulmonary fibrosis with new hypoxia with exertion; severe pulmonary hypertension Presented with worsening dyspnea on exertion and mild hypoxia with exertion noted at PCP office. Has a known history of pulmonary fibrosis secondary to chemotherapy received for Hodgkin's lymphoma. Chest x-ray on admit showed mild chronic interstitial changes, no other abnormalities; notably appeared fairly similar to previous chest x-rays in 2018. Hemodynamically stable, noninfectious appearing. COVID/flu/RSV negative. Echo on admit showed EF 60% but severe pulmonary hypertension with PASP 97 mmHg, mildly dilated RV and septal flattening consistent with RV pressure overload. ? Treated as acute exacerbation of pulmonary fibrosis on admission with IV steroids. Patient may have mild acute exacerbation but suspect his presentation is more due to chronic worsening of his pulmonary fibrosis over a longer period of time. Completed oxygen qualification testing, did not require any supplemental oxygen at rest but did require 4 L nasal cannula with exertion. Will discharge on prednisone 40 mg daily to complete 5-day course of steroids total. Importantly, patient is scheduled to have PFTs done in early February and will be seeing a combat engineer at [facility] shortly after that to discuss further management. 2. Mild erythrocytosis ? Hemoglobin 17.2 on admit, down trended to 16.4 on hospital day 2. Presumed secondary to chronic hypoxia. No need to monitor further CBCs at this time. Chronic medical conditions: ? Obesity: BMI 31 on admit. Complicated hospital course, care and prognosis. ? LAURO: Continue nocturnal CPAP. ? History of Hodgkin's lymphoma: Completed treatment about 15 years ago with no recurrence. ? Hypertension: Stable. Continue home amlodipine. ? Hyperlipidemia: Continue home statin. ? Hypothyroidism: TSH normal on admit. Continue home Synthroid. ? Osteoarthritis: Tylenol as needed for pain. ? History of right pneumothorax after bronchoscopy requiring chest tube placement (2018) Total clinical time spent by myself addressing the patient's medical issues, reviewing all the data, and collaborating with patient's care team: 35 minutes. Physical Exam Const alert, oriented x3 and no apparent distress Constitutional Narrative: Pleasant elderly male, obese, laying comfortably in bed, conversing normally, in no acute distress. General Appearance: cooperative and comfortable HEENT normocephalic, head/scalp atraumatic, hearing grossly normal bilaterally, nasal mucous membranes and turbinates normal and moist oral mucous membranes Eyes PERRL, EOMs intact bilaterally and conjunctivae normal Neck full ROM Chest inspection of chest normal Resp normal respiratory effort and no use of accessory muscles Resp Narrative: Mildly decreased breath sounds bilaterally throughout with mild crackles noted in mid to lower lung zones. No wheezing noted. Breathing comfortably on room air at rest. Stable. Cardio regular rate, regular rhythm, no murmurs and peripheral pulses 2+ throughout GI normal to inspection, nondistended, normoactive bowel sounds, soft to palpation, non-tender and non-distended Back/Spine normal ROM Extremity normal to inspection, full ROM and no pedal edema Skin no rashes or lesions noted Neuro moves all extremities and no focal motor deficits Speech: speech normal Psych mental status grossly normal Weight / BMI Weight Weight: 109.5 kg Body Mass Index (BMI) 32.0 ABG / Lab / Microbiology Data 01/24/24 06:43 01/24/24 06:43 Microbiology: Microbiology 01/23/24 20:20 Mucosa - Nose SARS-CoV-2, Influenza & RSV (PCR) - Final Radiography Diagnostic Testing: Radiology Impression Echocardiogram 01/24/24 01:16 Interpretation Summary The estimated ejection fraction is 60 %. Stage 1 diastolic dysfunction. Septal flattening consistent with RV pressure overload. Mildly dilated right ventricle. Mild to moderate (1-2+) tricuspid valve insufficiency. Severe pulmonary hypertension. The study was technically difficult. Ordering Physician: Rey Patel Performed By: Jamir Garcia RCS D/C Instructions Discharge Diet: No restrictions Meaningful Use Info Meaningful Use Meaningful Use Diagnoses (Choose all that apply): None applicable Ischemic Stroke Statin Dosing Therapy Reference: STATIN DOSE THERAPY REFERENCE: * Patients > 75 years receive moderate or high dose statin therapy. * Patients 75 years or YOUNGER should receive HIGH intensity statin dose unless contraindicated. You will be required to document reason for non-treatment if statin daily dose does not meet guidelines. HIGH DOSE STATIN THERAPY DAILY Atorvastatin > than or = to 40 mg Rosuvastatin > than or = to 20 mg Amlodipine + Atorvastatin > than or = to 2.5/40 mg Ezetimibe + Simvastatin 10/80 mg Simvastatin 80mg Discharge Plan Admission Admit Date/Time: 01/24/24 00:21 Primary Reason for Your Visit: Worsening shortness of breath with exertion Attending Provider: Deshawn Parisi Primary Care Provider: Andres Scruggs Consulting Providers: Rey Patel Instructions Additional Instructions / Restrictions: Please take prednisone for 3 more days to complete a 5-day course of steroids total. Follow-up with the lung doctor in [place] as scheduled. Wear oxygen at home as needed to maintain an oxygen level greater than 88%. Discharge Orders/Prescriptions Prescriptions: New prednisone 20 mg tablet 40 mg PO DAILY 3 Days Qty: 6 0RF Continued atorvastatin 20 MG tablet 20 mg PO QHS amlodipine 5 mg tablet 5 mg PO DAILY meloxicam 7.5 mg tablet 7.5 mg PO DAILY levothyroxine [Synthroid] 112 mcg tablet 112 mcg PO DAILY Referrals / Follow Up: Andres Scruggs MD [Primary Care Provider] - Disposition Disposition (needs filled in before D/C Order can be placed): Home, Self Care Charges/Coding Visit Charges Inpatient E&M: 87315 Disch Hosp >30min
[2024-01-25 12:04] VITALS: O2SAT 91; O2SAT 93
== END 2024-01-25 12:21 | disposition home or self-care (01) | DRG 197 ==
LOC: ED 23:57 → PCU 01-24 00:28
PROVIDERS: Admitting Provider Internal Medicine; Emergency Provider Emergency Medicine; PCP Internal Medicine; Visit Provider Hospitalist
DX: J84.10 Pulmonary fibrosis, unspecified (principal); J45.21 Mild intermittent asthma with (acute) exacerbation; I27.20 Pulmonary hypertension, unspecified; E03.9 Hypothyroidism, unspecified; I10 Essential (primary) hypertension; M19.90 Unspecified osteoarthritis, unspecified site; G47.33 Obstructive sleep apnea (adult) (pediatric); E78.5 Hyperlipidemia, unspecified; D75.1 Secondary polycythemia; Z68.31 Body mass index [BMI] 31.0-31.9, adult; Z79.1 Long term (current) use of non-steroidal anti-inflammatories (NSAID); R09.02 Hypoxemia; T45.1X5A Adverse effect of antineoplastic and immunosuppressive drugs, initial encounter; E66.9 Obesity, unspecified; Z92.21 Personal history of antineoplastic chemotherapy; Z85.71 Personal history of Hodgkin lymphoma; Z79.899 Other long term (current) drug therapy; R06.89 Other abnormalities of breathing
CPT/HCPCS: 36415; 71046; 80048; 80053; 81270; 82728; 82803; 83540; 83550; 83735; 83880; 84100; 84443; 84484; 85025; 85379; 87631; 93005; 93306; 94640; 94668; 97161; 99252; 99285; J7030; Q9957; A4216; G0463

== ENCOUNTER → 2024-06-05 | Outpatient (CLI) | payer MEDICARE, SELFPAY ==
--- NOTE | 2024-06-05 14:09 | PR.HP_ITS ---
History of Present Illness General Arrival date:: 06/05/24 Arrival time:: 14:09 Date of Referral:: 05/28/24 Date of Evaluation: 06/05/24 Referring Physician: Dr. Winter Primary Diagnosis: Pulmonary fibrosis History of Present Pulmonary Event mMRC Breathless Scale: When is the patient short of breath? Y/N Grade: Description of Breathlessness: 0 I only get breathless with strenuous exercise. 1 I get short of breath when hurrying on level ground or walking up a slight hill. 2 On level ground, I walk slower than people of the same age because of breathless, or have to stop for breath when walking at my own pace. 3 I stop for breath after walking 100 yards or after a few minutes on level ground. 4 I am too breathless to leave the house or I am breathless when dressing. Respiratory Problems: Yes Fatigue, Wheezing, Able to Speak in Full Sentences, Anxiety and Dyspnea with Activity; No Retain Secretions, Limited Range of Motion, Chest Pain, Dizziness, Ankle Swelling, Hoarseness, Panic, Dyspnea at Rest, Dyspnea Lying Down Flat or Cough with Secretions Medications Home Medications atorvastatin 20 mg tablet 20 mg PO QHS cholesterol 09/25/17 amlodipine 5 mg tablet 5 mg PO DAILY blood pressure 01/23/24 levothyroxine 112 mcg tablet (Synthroid) 112 mcg PO DAILY thyroid 01/23/24 meloxicam 7.5 mg tablet 7.5 mg PO DAILY pain 01/23/24 prednisone 20 mg tablet 40 mg (2 x 20 mg) PO DAILY 3 days #6 tabs 01/25/24 Allergies Allergies bleomycin Allergy (Verified 01/23/24 19:35) Other Secretions Cough:: Yes Sleep Disorder Evaluation Hx of Sleep Apnea: Yes Do you snore loudly (louder than talking or can be heard through closed doors)?: No Do you often feel tired/ fatigued/ sleepy during daytime?: No Has anyone observed you stop breathing during sleep?: No History of Hypertension (for STOP score): Yes (pt is getting another sleep study tonight) STOP Results: Negative Medical Utilization Medical Utilization Do you see your physician on a regular schedule?: Yes Advanced Directives Advanced Directives Power of Freight Car Loader: No Living Will: No Advance Directives Information Provided: No Advance Directives on File: No DNR Order?:: No Past Medical History Covid-19 Screening Physicial Symptoms Other Clinical Concerns Exposure Risk Pertinent Comorbidities 65 years or older:: Yes Has a chronic lung disease or moderate to severe asthma:: Yes Medical History Past Medical History (Updated 02/02/24 @ 00:01 by Little Arnold) Obesity (BMI 30.0-34.9) E66.9 History of Hodgkin's lymphoma Z85.71 Erythrocytosis D75.1 Pulmonary fibrosis J84.10 Hypothyroidism E03.9 Hodgkin's lymphoma C81.90 Surgical History Past Surgical History Status post ORIF of fracture of ankle Z98.890, Z87.81 Social History Smoking History Smoking Status: Never smoker Alcohol Use Alcohol Usage: No Occupation Occupation (List type of work in comments):: Retired Hobbies, Recreation, Social Activities Hobbies: Reading and Other Recreational Activities: I am able to engage in most, but not all activities Functioning ADL/IADL Current Ability Current Ability: Dependent: Self-Care (e.g.,grooming, dressing, & bathing), Dependent: Ambulation, Dependent: Transfer and Dependent: Household tasks (e.g., light meal prep, laundry, shopping) Pt Functioning Prior to Problem Prior Functioning: Self-Care (e.g.,grooming, dressing, & bathing): Dependent, Ambulation: Dependent, Transfer: Dependent and Household tasks (e.g., light meal prep, laundry, shopping): Dependent Social Environment Status Marital Status: Current Living Arrangements Living Environment:: Spouse Children How many children do you have?: 2 Safety Do you feel safe in your surroundings?: Yes Assistance Do you need any assistance at home?: no Review of Systems Pain Is Patient Pain Free?: No Pain Location: neck Pain Level: 8/10 Risk Factor Assessment Chief Complaint Chief Complaint: Pulmonary fibrosis Vital Signs Pulse Rate: 51 Pulse Ox: 94 Blood Pressure: 145/91 Obesity Height: 6 ft 1 in Weight:: 240 lb Weight in Pounds: 240.0 lbs Body Mass Index (BMI): 31.6 Nutritional Referral for Obesity: No (declines) Physical Activity Physical Inactivity: None Risk Stratification Risk Guidelines: Lowest Risk: Risk Factor for Smoking, Moderate Risk: Risk Factor for Diabetes and Risk Factor for Depression and Highest Risk: Risk Factor for Dyslipidemia, Risk Factor for Obesity, Risk Factor for Hypertension and Risk Factor for Sedentary Lifestyle For Smoking Smoking Risk Guidelines For Dyslipidemia Dyslipidemia Risk Guidelines For Diabetes Mellitus Diabetes Risk Guidelines For Obesity/Overweight Obesity/Overweight Risk Guidelines For Hypertension Hypertension Risk Guidelines For Sedentary Lifestyle Sedentary Lifestyle Risk Guidelines For Depression Depression Risk Guidelines Motivation Motivation to Participate On a scale of 1 to 10, how prepared are you to commit to attending program?: 5 What do you see as barriers to successfully being able to complete the program?: no What do you see as the benefits of succesfully completing the program? In other words, what do you hope to get out of participating in the program?: improve endurance and breathing Are there issues you are dealing with that will interfere with completing the program?: no Do you have a spouse or signficant other, family or friends who will help support you to complete the program?: yes
[2024-06-05 14:21] VITALS: BP 145/91
[2024-06-05 14:30] VITALS: PULSE 51; O2SAT 94
--- NOTE | 2024-06-05 14:46 | PCM.PR.TP ---
General Information2 General Information Admitting Diagnosis: Pulmonary fibrosis Personal Learning Style/Barriers Personal Learning Style:: Audio/Visual Stage of change r/t lifestyle modifications: Contemplation Education/Goals PA Patient Goals: Increase muscle strength: Initial Assessment, Experience less dyspnea: Initial Assessment, Improve energy level: Initial Assessment, Participate in home exercise: Initial Assessment, Improve the ability to cope with ADLs: Initial Assessment, Improve knowledge of lung disease: Initial Assessment, Understand how to use medications: Initial Assessment and Increase knowledge of oxygen use: Initial Assessment Exercise - Initial Assessment Visit Date of Eval: 06/05/24 (initial eval ) Problem/Goals Problems: Deconditioning Goals:: Aerobic exercise 30-60 mins x 12 weeks [36 sessions] Physician Prescribed Exercise Modalities: Treadmill, Aviir AD-7, sofatutor Stepper, sofatutor Pro-II Ergometer and sofatutor Lateral Rubber Roller Grinder Frequency (days/week): 3 Duration (Minutes):: 30-45 min Intensity: 60-80% of age predicted maximum heart rate reserve Current METSs:: 2 Target HR:: 111 (89-111) Resting Blood Pressure: 145/91 EKG Type: NSR Left anterior fascicular block Plan Plan and Plan to Review:: Benefits of exercise, Core components of exercise, How to measure dyspnea level, How to monitor dyspnea level, Exercise intensity, Exercise safety guideline, Home exercise guidelines and Justo: 3-4/11-13 Home Exercise Mode: Other Nutrition/Wt Mgmt - Initial Visit Date of Eval: 06/05/24 (initial eval ) Problems/Goals Problems: Overweight Weight Management Admit Height:: 6 ft 1 in Admit Weight:: 240 lb Admit BMI:: 31.6 Intervention Referral to dietitian:: No (declines) Will attend diet classes:: Yes Intervention/Plan: Instruct on ideal BMI & set weight loss goal w/patient, Assist pt to ID & incorporate diet changes for weight loss by S9, Refer to Structured Weight Loss program as appropriate, Encourage goal of using 250-300dcal per session for weight loss and Other additional plan/interventions Plan Nutrition Plan: Yes: Review BMI or WC & identify target wt & strategies for wt control, Yes: Nutrition education class:, Yes: Medication education class [Prednisone]:, Yes: Weight control education class:, Yes: Education re: Need for ongoing weight monitoring, Yes: Food diary: and Yes: Physical activity log: Nutrition/Wt Mgmt - 30-Day Weight Management Height: 6 ft 1 in Weight:: 240 lb BMI: 31.6 Nutrition/Wt Mgmt - 60-Day Weight Management Height: 6 ft 1 in Weight:: 240 lb BMI: 31.6 Nutrition/Wt Mgmt - 90-Day Weight Management Height: 6 ft 1 in Weight:: 240 lb BMI: 31.6 Nutrition/Wt Mgmt - Final Weight Management Height: 6 ft 1 in Weight:: 240 lb BMI: 31.6 Psychosocial - Initial Assess Visit Date of Eval: 06/05/24 (initial eval ) Problems/Goals History of Emotional Disorders: None Psychosocial Goals: 1. Patient is free from overwhelming symtoms of depression (or anxiety, 2. Identifies personal stressors & states the strategies for managing, 3. Identifies activities to decrease isolation and/or symptoms of, 4. Improved psychosocial coping skills., 5. Verbalizes coping strategies., 6. Adequate treatment of depression. and 7. Improved Q.O.L. Psychosocial Test Tool Used:: Pulmonary QOL and PHQ-9 Questionnaire Referred to MD for counseling:: No Referral to Behavioral Health PS - Interventions: Yes: Attend Stress Management Classes Intervention/Plan: See List Interventions/Plan:: Assess stressors,coping strategies & signs of derpression on admission, Instruct/assist pt to develop coping & personal stress Mgt strategies, Refer to Behavioral Health if appropriate, Refer to Physician if appropriate, Instruct patient to recognize signs & symptoms of depression and Other additional plan/intervention Psychosocial - 30-Day Problems/Goals History of Emotional Disorders: None Psychosocial Goals: 1. Patient is free from overwhelming symtoms of depression (or anxiety, 2. Identifies personal stressors & states the strategies for managing, 3. Identifies activities to decrease isolation and/or symptoms of, 4. Improved psychosocial coping skills., 5. Verbalizes coping strategies., 6. Adequate treatment of depression. and 7. Improved Q.O.L. Psychosocial Test Tool Used:: Pulmonary QOL and PHQ-9 Questionnaire Referred to MD for counseling:: No Referral to Behavioral Health PS - Interventions: Yes: Attend Stress Management Classes Plan Interventions/Plan:: Assess stressors,coping strategies & signs of derpression on admission, Instruct/assist pt to develop coping & personal stress Mgt strategies, Refer to Behavioral Health if appropriate, Refer to Physician if appropriate, Instruct patient to recognize signs & symptoms of depression and Other additional plan/intervention Psychosocial - 60-Day Problems/Goals History of Emotional Disorders: None Psychosocial Goals: 1. Patient is free from overwhelming symtoms of depression (or anxiety, 2. Identifies personal stressors & states the strategies for managing, 3. Identifies activities to decrease isolation and/or symptoms of, 4. Improved psychosocial coping skills., 5. Verbalizes coping strategies., 6. Adequate treatment of depression. and 7. Improved Q.O.L. Psychosocial Test Tool Used:: Pulmonary QOL and PHQ-9 Questionnaire Referred to MD for counseling:: No Referral to Behavioral Health PS - Interventions: Yes: Attend Stress Management Classes Plan Interventions/Plan:: Assess stressors,coping strategies & signs of derpression on admission, Instruct/assist pt to develop coping & personal stress Mgt strategies, Refer to Behavioral Health if appropriate, Refer to Physician if appropriate, Instruct patient to recognize signs & symptoms of depression and Other additional plan/intervention Psychosocial - 90-Day Problems/Goals History of Emotional Disorders: None Psychosocial Goals: 1. Patient is free from overwhelming symtoms of depression (or anxiety, 2. Identifies personal stressors & states the strategies for managing, 3. Identifies activities to decrease isolation and/or symptoms of, 4. Improved psychosocial coping skills., 5. Verbalizes coping strategies., 6. Adequate treatment of depression. and 7. Improved Q.O.L. Psychosocial Test Tool Used:: Pulmonary QOL and PHQ-9 Questionnaire Referred to MD for counseling:: No Referral to Behavioral Health PS - Interventions: Yes: Attend Stress Management Classes Plan Interventions/Plan:: Assess stressors,coping strategies & signs of derpression on admission, Instruct/assist pt to develop coping & personal stress Mgt strategies, Refer to Behavioral Health if appropriate, Refer to Physician if appropriate, Instruct patient to recognize signs & symptoms of depression and Other additional plan/intervention Psychosocial - Final Assess Problems/Goals History of Emotional Disorders: None Psychosocial Goals: 1. Patient is free from overwhelming symtoms of depression (or anxiety, 2. Identifies personal stressors & states the strategies for managing, 3. Identifies activities to decrease isolation and/or symptoms of, 4. Improved psychosocial coping skills., 5. Verbalizes coping strategies., 6. Adequate treatment of depression. and 7. Improved Q.O.L. Psychosocial Test Tool Used:: Pulmonary QOL and PHQ-9 Questionnaire Referred to MD for counseling:: No Referral to Behavioral Health PS - Interventions: Yes: Attend Stress Management Classes Plan Interventions/Plan:: Assess stressors,coping strategies & signs of derpression on admission, Instruct/assist pt to develop coping & personal stress Mgt strategies, Refer to Behavioral Health if appropriate, Refer to Physician if appropriate, Instruct patient to recognize signs & symptoms of depression and Other additional plan/intervention Oxygen & Oxygen Titration Init Visit Date of Eval: 06/05/24 (initial eval ) Initial Assessment Oxygen on Admission: Continuous home use (2L at rest 4L with exertion ) Goal Oxygen & Oxygen Tritration Goals: Effective hypoxemia control and Uses O2 as Rx'd/safely Plans Plan: Monitor SpO2 rest & with exercise, Recommend appropriate FiO2 to Pt/MD, Assist to contact DME for O2, Train appropriate O2 use at rest, Train appropriate O2 use with exercise and Train O2 safety & systems Reviewed prescribed medications:: Purpose, Schedule, Side effects and Importance of compliance Instruct correct technique/timing & care:: MDI, DPI, Nebulizer and Return demo use of inhaler Bronchial Hygiene Plan: Controlled cough, CPT, Vibratory PEP device, VEST, Role of exercise in secretion clearance, NS Nasal spray, Hydration, Hand hygiene, Evaluate sputum, When to call MD, Signs/symptoms to report:, Influenza/Pneumovax vaccines and Cleaning of respiratory equipment Core Components - Initial Visit Date of Eval: 06/05/24 (initial eval ) Hypertension Hypertension Diagnosis:: Hypertension ICD-10 I10 BP: 145/91 [employer] Hypertension Guidelines Outcomes/Goals: Able to verbalize/achieve optimal blood pressure <130/80, Incorporates diet changes & exercise for blood pressure control by DC and Other additional outcomes/goals Tobacco - Initial Assessment Tobacco Program Goals Stages of Change:: Contemplate Do you have family support?: Yes Tobacco Use: Non-smoker Exacerbation Mgmt & Airway Clearance Plan: Monitor SpO2 rest & with exercise, Recommend appropriate FiO2 to Pt/MD, Assist to contact DME for O2, Train appropriate O2 use at rest, Train appropriate O2 use with exercise and Train O2 safety & systems Instruct correct technique/timing & care:: MDI, DPI, Nebulizer and Return demo use of inhaler Bronchial Hygiene Plan: Controlled cough, CPT, Vibratory PEP device, VEST, Role of exercise in secretion clearance, NS Nasal spray, Hydration, Hand hygiene, Evaluate sputum, When to call MD, Signs/symptoms to report:, Influenza/Pneumovax vaccines and Cleaning of respiratory equipment Medication Does pt report taking home meds as prescribed?: Yes Reviewed prescribed medications:: Purpose, Schedule, Side effects and Importance of compliance Diabetes Diabetes:: No Referral to dietitian:: No (declines) Will attend diet classes:: Yes Core Components - 30 DAYS Hypertension Hypertension Diagnosis:: Hypertension ICD-10 I10 Resting Blood Pressure:: 145/91 [employer] Hypertension Guidelines Outcomes/Goals: Able to verbalize/achieve optimal blood pressure <130/80, Incorporates diet changes & exercise for blood pressure control by DC and Other additional outcomes/goals Tobacco - 30-Day Tobacco Program Goals Stages of Change:: Contemplate Do you have family support?: Yes Tobacco Use: Non-smoker Diabetes Diabetes:: No Core Components - 60 DAYS Hypertension Hypertension Diagnosis:: Hypertension ICD-10 I10 Resting Blood Pressure:: 145/91 [employer] Hypertension Guidelines Outcomes/Goals: Able to verbalize/achieve optimal blood pressure <130/80, Incorporates diet changes & exercise for blood pressure control by DC and Other additional outcomes/goals Tobacco - 60-Day Tobacco Program Goals Stages of Change:: Contemplate Do you have family support?: Yes Tobacco Use: Non-smoker Diabetes Diabetes:: No Core Components - 90 DAYS Hypertension Hypertension Diagnosis:: Hypertension ICD-10 I10 Resting Blood Pressure:: 145/91 [employer] Hypertension Guidelines Outcomes/Goals: Able to verbalize/achieve optimal blood pressure <130/80, Incorporates diet changes & exercise for blood pressure control by DC and Other additional outcomes/goals Tobacco - 90-Day Tobacco Program Goals Stages of Change:: Contemplate Do you have family support?: Yes Tobacco Use: Non-smoker Diabetes Diabetes:: No Core Components - Final Hypertension Hypertension Diagnosis:: Hypertension ICD-10 I10 Resting Blood Pressure:: 145/91 [employer] Hypertension Guidelines Outcomes/Goals: Able to verbalize/achieve optimal blood pressure <130/80, Incorporates diet changes & exercise for blood pressure control by DC and Other additional outcomes/goals Tobacco - Final Tobacco Program Goals Stages of Change:: Contemplate Do you have family support?: Yes Tobacco Use: Non-smoker Diabetes Diabetes:: No Patient Health Questionnaire PHQ-9 Screening Initial Assessment: 1. Little interest or pleasure in doing things: More than half the days 2. Feeling down, depressed, or hopeless: Not at all 3. Trouble falling or staying asleep, or sleeping too much: Several days 4. Feeling tired or having little energy: Several days 5. Poor appetite or overeating: Not at all 6. Feeling bad about yourself -- or that you are a failure or have let yourself or your family down: Not at all 7. Trouble concentrating on things, such as reading the newspaper or watching television: Not at all 8. Moving or speaking so slowly that other people could have noticed. Or the opposite - being so fidgety or restless that you have been moving around a lot more than usual: Not at all 9. Thoughts that you would be better off , or of hurting yourself in some way: Not at all How difficult have these problems made it for you to do your work, take care of things at home, or get along with other people?: Somewhat difficult Total Score: 4 Knowledge Questionaire (BCKQ) Information Information: [place] COPD Knowledge Questionnaire (BCKQ) This questionnaire is designed to find out what you know about your lung problem. It should be completed without help form anyone else. This usually takes between 10 and 20 minutes. Your answers will help us to find out what information you need to help you to understand and manage your lung condition. Jean Claude the point lay ira which you think is the correct answer. Self-Efficacy 6-Item Scale Initial Assessment: We would like to know how confident you are in doing certain activities. Please select your confidence level for: Fatigue Select Number: 7 Physical Discomfort or Pain Select Number: 7 Emotional Distress Select Number: 9 Other Symptoms or Health Problems Select Number: 8 Different Tasks and Activities Select Number: 7 Medication Select Number: 7 Total Score:: 7 Nutrition Survey Nutrition Survey Instructions Scoring Instructions Nutrition Survey Initial: Have you lost >10 lbs over the past 2 months without trying?: No Are you following a special diet at home for diabetes, low fat, or low salt?: No Are you interested in meeting with a dietitian for help understanding your diet?: No Do you eat less than 3 meals a day?: Yes Do you eat fatty meats (ramirez, sausage, ribs, etc), fried foods, desserts, large amounts of salad dressings, margarine, butter, or cheese most days?: Yes Do you have food allergies? [Enter types in comment field]: No Do you eat in restaurants more than 3 times a week?: Yes Do you season food with salt, seasoning salt, or garlic salt?: Yes Do you used canned, boxed, frozen meals, or soups, seasoning packets?: Yes Total Score:: 5
[2024-06-05 14:57] VITALS: BP 145/91; BMI 31.6
[2024-06-05 14:58] VITALS: BMI 31.6
== END | disposition home or self-care (01) ==
LOC: PR 14:05
PROVIDERS: PCP Internal Medicine
DX: J96.11 Chronic respiratory failure with hypoxia (principal); I27.21 Secondary pulmonary arterial hypertension; J84.10 Pulmonary fibrosis, unspecified

== ENCOUNTER 2024-07-01 13:00 | Outpatient (RCR) | payer MEDICARE, SELFPAY ==
[2024-06-05 14:57] VITALS: BMI 31.6
== END 2024-07-04 23:59 ==
LOC: PR 13:00
PROVIDERS: PCP Internal Medicine
DX: J96.11 Chronic respiratory failure with hypoxia (principal); J84.10 Pulmonary fibrosis, unspecified; I27.21 Secondary pulmonary arterial hypertension
CPT/HCPCS: 97150; G0239

== ENCOUNTER 2024-07-31 13:00 | Outpatient (RCR) | payer MEDICARE, SELFPAY ==
[2024-06-05 14:57] VITALS: BMI 31.6
== END 2024-08-04 23:59 ==
LOC: PR 13:00
PROVIDERS: PCP Internal Medicine
DX: J96.11 Chronic respiratory failure with hypoxia (principal); J84.10 Pulmonary fibrosis, unspecified; I27.21 Secondary pulmonary arterial hypertension
CPT/HCPCS: 97150; G0239

== ENCOUNTER 2024-08-30 11:37 | Emergency (ER) | payer MEDICARE, SELFPAY ==
[2024-08-06 07:36] VITALS: BMI 30.9
[2024-08-30 11:38] VITALS: BP 184/104; PULSE 66; RESP 15; TEMP 36.4; O2SAT 92
[2024-08-30 12:08] VITALS: BP 170/110
--- NOTE | 2024-08-30 12:21 | EDS_ITS ---
HPI History of Present Illness Chief Complaint: Hypertension Narrative Narrative: Chief complaint and HPI: Asymptomatic hypertension. 74-year-old male with past medical history of pulmonary fibrosis on baseline 2 L nasal cannula, HTN, hypothyroidism, HLD presents for evaluation of asymptomatic hypertension. Patient states that in July his primary care physician stopped his amlodipine and placed him on losartan 50 mg daily due to uncontrolled hypertension. He states that he is also on Coreg 3.125 mg twice daily for his blood pressure. Patient states that he has continued to have episodic hypertension. He states that he was at pulmonary rehab on Saturday and he had elevated blood pressure. They told him to follow-up with his PCP. Patient states since then he has been checking his blood pressure at home. He states he woke up and his SBP was in the 190s which is why he presents. He denies any headache, lightheadedness, dizziness, vision changes, syncope, chest pain, shortness of breath other than his baseline, nausea, vomiting, weakness, fatigue. Review of systems: See HPI Medications: As listed on the chart Allergies: As listed on the chart PFSH: Per chart Vital signs: As listed on the chart. Reviewed. Physical exam: Gen: A&O x3, NAD Head: Normocephalic, atraumatic Eyes: No sclera icterus, conjunctiva clear, PERRL, EOMI ENT: Moist mucous membranes Neck: Trachea midline, No JVD, full range of motion CV: RRR, no murmurs, no peripheral edema Resp: Lungs CTA BL, no w/r/c, on baseline 2 L nasal cannula GI: Abd soft, non-distended, non-tender, no r/r/g Musc: Full ROM, no deformity, strength plus 5 out of 5 in all extremities Skin: Warm, dry Neuro: Alert, oriented, grossly intact, sensation intact Psych: Cooperative, appropriate mood and affect [facility] Medical History (Updated 08/30/24 @ 14:[address] Jamir Vasquez DO) Obesity (BMI 30.0-34.9) History of Hodgkin's lymphoma Erythrocytosis Pulmonary fibrosis Hypothyroidism Hodgkin's lymphoma Home Medications ?Medication ?Instructions ?Recorded ?Last Taken ?Type atorvastatin 20 mg tablet 20 mg PO QHS cholesterol 09/25/17 Unknown History amlodipine 5 mg tablet 5 mg PO DAILY blood pressure 01/23/24 Unknown History levothyroxine 112 mcg tablet 112 mcg PO DAILY thyroid 01/23/24 Unknown History (Synthroid) meloxicam 7.5 mg tablet 7.5 mg PO DAILY pain 01/23/24 Unknown History prednisone 20 mg tablet 40 mg (2 x 20 mg) PO DAILY 3 days 01/25/24 Unknown Rx #6 tabs Allergy/AdvReac Type Severity Reaction Status Date / Time bleomycin Allergy Other Verified 08/30/24 11:41 Surgical History Status post ORIF of fracture of ankle Social History household members: spouse Smoking Status: Never smoker EXAM Physical Exam Const Vital Signs: 08/30/24 11:38 08/30/24 12:08 08/30/24 12:08 Temperature 97.6 F L Temperature Source Temporal Pulse Rate 66 Respiratory Rate 15 Respiratory Pattern Normal Blood Pressure 184/104 H 170/110 H Blood Pressure Mean 130 130 Pulse Ox 92 Oxygen Delivery Method Nasal Cannula Oxygen Flow Rate (L/min) 2 08/30/24 13:47 08/30/24 13:49 08/30/24 14:12 Temperature Temperature Source Pulse Rate 55 L Respiratory Rate Respiratory Pattern Blood Pressure 164/93 H 160/100 H 158/75 H Blood Pressure Mean 116 120 102 Pulse Ox Oxygen Delivery Method Oxygen Flow Rate (L/min) 08/30/24 14:13 Temperature 97.9 F Temperature Source Pulse Rate 54 L Respiratory Rate 16 Respiratory Pattern Blood Pressure 158/75 H Blood Pressure Mean 102 Pulse Ox 99 Oxygen Delivery Method Oxygen Flow Rate (L/min) MDM MDM MDM Narrative Medical decision making narrative: 74-year-old male with past medical history of pulmonary fibrosis on baseline 2 L nasal cannula, HTN, hypothyroidism, HLD presents for evaluation of asymptomatic hypertension. Patient has history of uncontrolled hypertension and recently had changes in blood pressure medication in July. On presentation his blood pressure 184/104, has improved to 170/110 without intervention. Given that patient is asymptomatic I do not think any cardiac or respiratory workup is needed at this time. Patient is in agreement. We will give IV hydralazine to improve blood pressure and monitor patient. EKG reviewed. See below. On reevaluation, patient's blood pressure has improved to 150/75. Still asymptomatic. Patient is stable to discharge home. Patient was educated to follow-up with his PCP tomorrow and continue to monitor his blood pressure at home. Will increase his losartan to 50 mg twice daily. Patient offered new prescription but declined as he states he has plenty of pills. Return precautions explained. EKG shows sinus bradycardia with a heart rate of 52. Patient has a known left anterior fascicular block. There is multiple artifacts on the EKG therefore repeat was obtained. Repeat shows sinus bradycardia with a heart rate of 50. Again patient has left anterior fascicular block. Again there is a lot of artifact however when comparing it to previous EKG in January 2024 EKG is similar without acute ischemic changes. Impression: 1. Uncontrolled hypertension 2. Established hypertension Discharge Plan Triage Chief Complaint: Hypertension ED Provider: Jamir Vasquez Dx/Rx/DC Orders Clinical Impression: Hypertension Instructions: ED Hypertension, Established Prescriptions: No Action atorvastatin 20 MG tablet 20 mg PO QHS amlodipine 5 mg tablet 5 mg PO DAILY meloxicam 7.5 mg tablet 7.5 mg PO DAILY levothyroxine [Synthroid] 112 mcg tablet 112 mcg PO DAILY prednisone 20 mg tablet 40 mg PO DAILY 3 Days Qty: 6 0RF Primary Care Provider: Anders Scruggs Referrals: Andres Scruggs MD [Primary Care Provider] - 3-5 Days Activity Restrictions/Additional Instructions: Follow-up with your primary care physician. Call to make an appointment tomorrow. Continue to monitor your blood pressure at home. Return back to the ED if you develop symptoms or blood pressure does not improve. Increase your home 50 mg losartan daily to 50 mg losartan twice daily. You already took 50 mg losartan this morning therefore take another 50 mg this evening. Inform your primary care physician that I increased your medication. Continue to take your carvedilol as scheduled. Print Language: Cymraes Disposition Disposition: Home, Self Care Discharge Date/Time: 08/30/24 14:15
--- NOTE | 2024-08-30 13:03 | EKG12_ITS ---
Test Reason : ARRYTH Blood Pressure : */* mmHG Vent. Rate : 52 BPM Atrial Rate : 52 BPM P-R Int : 184 ms QRS Dur : 92 ms QT Int : 472 ms P-R-T Axes : 45 -66 -19 degrees QTcB Int : 438 ms Sinus bradycardia Pulmonary disease pattern Left anterior fascicular block Cannot rule out Inferior infarct (masked by fascicular block?) , age undetermined ST & T wave abnormality, consider anterior ischemia Abnormal ECG Confirmed by RADU GALVAN, PUNEET ([id number]), visual effects editor DANETTE DISLA ([id number]) on 09/01/2024 6:15:55 AM Referred By: Confirmed By: PUNEET LOVELACE MD
--- NOTE | 2024-08-30 13:22 | EKG12_ITS ---
Test Reason : REPEAT Blood Pressure : */* mmHG Vent. Rate : 50 BPM Atrial Rate : 50 BPM P-R Int : 176 ms QRS Dur : 98 ms QT Int : 502 ms P-R-T Axes : 49 -83 -17 degrees QTcB Int : 457 ms Sinus bradycardia Left axis deviation Pulmonary disease pattern ST & T wave abnormality, consider anterior ischemia Abnormal ECG Confirmed by RADU GALVAN, PUNEET ([id number]), video effects editor GUEVARA ZELAYA ([id number]) on 09/01/2024 9:01:22 AM Referred By: Confirmed By: PUNEET LOVELACE MD
[2024-08-30] MEDS: hydrALAZINE 20 MG/ML Vial 10 MG IV (13:46)
[2024-08-30 13:47] VITALS: BP 164/93; PULSE 55
[2024-08-30 13:49] VITALS: BP 160/100
[2024-08-30 14:12] VITALS: BP 158/75
[2024-08-30 14:13] VITALS: BP 158/75; PULSE 54; RESP 16; TEMP 36.6; O2SAT 99
== END 2024-08-30 14:15 | disposition home or self-care (01) ==
PROVIDERS: Emergency Provider Surgery; PCP Internal Medicine; Visit Provider Surgery
DX: I10 Essential (primary) hypertension (principal)
CPT/HCPCS: 93005; 96374; 99283; A4216

== ENCOUNTER 2024-09-04 13:00 | Outpatient (RCR) | payer MEDICARE, SELFPAY ==
[2024-06-05 14:57] VITALS: BMI 31.6
--- NOTE | 2024-08-06 07:20 | PR.ITP_ITS ---
Exercise - Initial Assessment Visit Session Number:: 18 Physician Prescribed Exercise Modalities: Treadmill, Schwinn Airdyne AD-7 and SciFit Stepper Target HR:: 111 (89-111) Current RPD:: 2-3 Maximum Exercise HR:: 96 Resting Blood Pressure: 144/80 Maximum Exercise Blood Pressure: 140/86 Minimum SpO2 with exercise: 89 EKG Type: SB to Sinus arrythmia w/freq ectopy Nutrition/Wt Mgmt - Initial Visit Session Number:: 18 Weight Management Admit Height:: 6 ft 1 in Admit Weight:: 235 lb Admit BMI:: 30.9 Nutrition/Wt Mgmt - 30-Day Visit Date of Eval: 08/06/24 Session Number:: 18 Weight Management Height: 6 ft 1 in Weight:: 235 lb BMI: 30.9 Nutrition/Wt Mgmt - 60-Day Visit Date of Eval: 08/06/24 Session Number:: 18 Weight Management Height: 6 ft 1 in Weight:: 235 lb BMI: 30.9 Weight Goals Progress:: Progressing (Pt has lost 5 lbs. Pt has attended nutrition class and understands the benefits of a healthy low sodium diet.) Nutrition/Wt Mgmt - 90-Day Visit Session Number:: 18 Weight Management Height: 6 ft 1 in Weight:: 235 lb BMI: 30.9 Weight Goals Progress:: Progressing (Pt has lost 5 lbs. Pt has attended nutrition class and understands the benefits of a healthy low sodium diet.) Nutrition/Wt Mgmt - Final Visit Session Number:: 18 Weight Management Height: 6 ft 1 in Weight:: 235 lb BMI: 30.9 Psychosocial - Initial Assess Visit Session Number:: 18 Problems/Goals History of Emotional Disorders: None Psychosocial Goals: 1. Patient is free from overwhelming symtoms of depression (or anxiety, 2. Identifies personal stressors & states the strategies for managing, 3. Identifies activities to decrease isolation and/or symptoms of, 4. Improved psychosocial coping skills., 5. Verbalizes coping strategies. and 7. Improved Q.O.L. Psychosocial Test Tool Used:: Pulmonary QOL and PHQ-9 Questionnaire Referred to MD for counseling:: No Referral to Behavioral Health PS - Interventions: Yes: Attend Stress Management Classes Intervention/Plan: See List Interventions/Plan:: Assess stressors,coping strategies & signs of derpression on admission, Instruct/assist pt to develop coping & personal stress Mgt strategies, Refer to Behavioral Health if appropriate, Refer to Physician if appropriate, Instruct patient to recognize signs & symptoms of depression and Instruct patient to recog Comments:: Pt denies any psychosocial issues at this time. Psychosocial - 30-Day Visit Date of Eval: 08/06/24 Session Number:: 18 Problems/Goals History of Emotional Disorders: None Psychosocial Goals: 1. Patient is free from overwhelming symtoms of depression (or anxiety, 2. Identifies personal stressors & states the strategies for managing, 3. Identifies activities to decrease isolation and/or symptoms of, 4. Improved psychosocial coping skills., 5. Verbalizes coping strategies. and 7. Improved Q.O.L. Psychosocial Test Tool Used:: Pulmonary QOL and PHQ-9 Questionnaire Referred to MD for counseling:: No Referral to Behavioral Health PS - Interventions: Yes: Attend Stress Management Classes Plan Interventions/Plan:: Assess stressors,coping strategies & signs of derpression on admission, Instruct/assist pt to develop coping & personal stress Mgt strategies, Refer to Behavioral Health if appropriate, Refer to Physician if appropriate, Instruct patient to recognize signs & symptoms of depression and Instruct patient to recog Comments:: Pt denies any psychosocial issues at this time. Psychosocial - 60-Day Visit Date of Eval: 08/06/24 Session Number:: 18 Problems/Goals History of Emotional Disorders: None Psychosocial Goals: 1. Patient is free from overwhelming symtoms of depression (or anxiety, 2. Identifies personal stressors & states the strategies for managing, 3. Identifies activities to decrease isolation and/or symptoms of, 4. Improved psychosocial coping skills., 5. Verbalizes coping strategies. and 7. Improved Q.O.L. Psychosocial Test Tool Used:: Pulmonary QOL and PHQ-9 Questionnaire Referred to MD for counseling:: No Referral to Behavioral Health PS - Interventions: Yes: Attend Stress Management Classes Plan Interventions/Plan:: Assess stressors,coping strategies & signs of derpression on admission, Instruct/assist pt to develop coping & personal stress Mgt strategies, Refer to Behavioral Health if appropriate, Refer to Physician if appropriate, Instruct patient to recognize signs & symptoms of depression and Instruct patient to recog Comments:: Pt denies any psychosocial issues at this time. Psychosocial - 90-Day Visit Session Number:: 18 Problems/Goals History of Emotional Disorders: None Psychosocial Goals: 1. Patient is free from overwhelming symtoms of depression (or anxiety, 2. Identifies personal stressors & states the strategies for managing, 3. Identifies activities to decrease isolation and/or symptoms of, 4. Improved psychosocial coping skills., 5. Verbalizes coping strategies. and 7. Improved Q.O.L. Psychosocial Test Tool Used:: Pulmonary QOL and PHQ-9 Questionnaire Referred to MD for counseling:: No Referral to Behavioral Health PS - Interventions: Yes: Attend Stress Management Classes Plan Interventions/Plan:: Assess stressors,coping strategies & signs of derpression on admission, Instruct/assist pt to develop coping & personal stress Mgt strategies, Refer to Behavioral Health if appropriate, Refer to Physician if appropriate, Instruct patient to recognize signs & symptoms of depression and I nstruct patient to recog Comments:: Pt denies any psychosocial issues at this time. Psychosocial - Final Assess Visit Session Number:: 18 Problems/Goals History of Emotional Disorders: None Psychosocial Goals: 1. Patient is free from overwhelming symtoms of depression (or anxiety, 2. Identifies personal stressors & states the strategies for managing, 3. Identifies activities to decrease isolation and/or symptoms of, 4. Improved psychosocial coping skills., 5. Verbalizes coping strategies. and 7. Improved Q.O.L. Psychosocial Test Tool Used:: Pulmonary QOL and PHQ-9 Questionnaire Referred to MD for counseling:: No Referral to Behavioral Health PS - Interventions: Yes: Attend Stress Management Classes Plan Interventions/Plan:: Assess stressors,coping strategies & signs of derpression on admission, Instruct/assist pt to develop coping & personal stress Mgt strategies, Refer to Behavioral Health if appropriate, Refer to Physician if appropriate, Instruct patient to recognize signs & symptoms of depression and Instruct patient to recog Comments:: Pt denies any psychosocial issues at this time. Oxygen & Oxygen Titration Init Visit Session Number:: 18 Initial Assessment SpO2:: 89 Oxygen & Oxygen Titration 30D Visit Date of Eval: 08/06/24 Session Number:: 18 Reassessment SpO2:: 89 Oxygen & Oxygen Titration 60D Visit Date of Eval: 08/06/24 Session Number:: 18 Reassessment Reassessment- 60 Days: Demonstrate knowledge of O2 Rx at rest & w/exercise, Using O2 as Rx'd, Has home O2 as Rx'd and Uses port O2 as Rx'd SpO2:: 89 Oxygen & Oxygen Titration 90D Visit Date of Eval: 08/06/24 Session Number:: 18 Reassessment SpO2:: 89 Oxygen & Oxygen Titration RAMESH Visit Date of Eval: 08/06/24 Session Number:: 18 Reassessment SpO2:: 89 Core Components - Initial Visit Session Number:: 18 Hypertension Hypertension Diagnosis:: Hypertension ICD-10 I10 BP: 144/80 [place] [employer] Hypertension Guidelines Blood Pressure: 140/86 Outcomes/Goals: Able to verbalize/achieve optimal blood pressure <130/80 and Incorporates diet changes & exercise for blood pressure control by DC Tobacco - Initial Assessment Tobacco Program Goals Tobacco Use: Non-smoker Diabetes Diabetes:: No Core Components - 30 DAYS Visit Date of Eval: 08/06/24 Session Number:: 18 Hypertension Hypertension Diagnosis:: Hypertension ICD-10 I10 Resting Blood Pressure:: 144/80 [place] [employer] Hypertension Guidelines Peak Exercise Blood Pressure:: 140/86 Change in medication: No Outcomes/Goals: Able to verbalize/achieve optimal blood pressure <130/80 and Incorporates diet changes & exercise for blood pressure control by DC Interventions/plan: Instruct on optimal blood pressure, hypertension & medications and Instruct on effects of sodium, alcohol, stress, exercise &hypertension Tobacco - 30-Day Tobacco Program Goals Tobacco Use: Non-smoker Exacerbation Mgmt & Airway Clearance Reassessment: Demonstrates knowledge of O2 Rx at rest, Demonstrates knowledge of O2 Rx with exercise, Using O2 as prescribed, Has home O2 as prescribed and Uses port O2 as prescribed Bronchial Hygiene Plan: Yes: Pt demonstrates correctly for effective cough, Yes: Pt demo correct for CPT, Yes: Pt demo correct for device, Yes: Pt demo correct for NS nasal spray, Yes: Pt demo correct for sputum management, Yes: Pt demo correct for improved hydration, Yes: Pt demo correct for hand hygiene, Yes: Pt demo correct for evalute sputum, Yes: Pt demo correct for verbalize when to call MD and Yes: Pt demo correct for cleaning of respiratory equipment Medication Medication reassessment: Yes: Pt demonstrates correct technique timing for MDI, Yes: Pt demonstrates correct technique timing for DPI, Yes: Pt demonstrates correct technique timing for NEB and Yes: Pt demonstrates correct technique timing for spacer Diabetes Diabetes:: No Core Components - 60 DAYS Visit Date of Eval: 08/06/24 Session Number:: 18 Hypertension Hypertension Diagnosis:: Hypertension ICD-10 I10 Resting Blood Pressure:: 144/80 [place] [employer] Hypertension Guidelines Peak Exercise Blood Pressure:: 140/86 Change in medication: No Outcomes/Goals: Able to verbalize/achieve optimal blood pressure <130/80 and Incorporates diet changes & exercise for blood pressure control by DC Interventions/plan: Instruct on optimal blood pressure, hypertension & medications and Instruct on effects of sodium, alcohol, stress, exercise &hypertension Tobacco - 60-Day Tobacco Program Goals Tobacco Use: Non-smoker Exacerbation Mgmt & Airway Clearance Reassessment: Demonstrates knowledge of O2 Rx at rest, Demonstrates knowledge of O2 Rx with exercise, Using O2 as prescribed, Has home O2 as prescribed and Uses port O2 as prescribed Bronchial Hygiene Plan: Yes: Pt demonstrates correctly for effective cough, Yes: Pt demo correct for CPT, Yes: Pt demo correct for device, Yes: Pt demo correct for NS nasal spray, Yes: Pt demo correct for sputum management, Yes: Pt demo correct for improved hydration, Yes: Pt demo correct for hand hygiene, Yes: Pt demo correct for evalute sputum, Yes: Pt demo correct for verbalize when to call MD and Yes: Pt demo correct for cleaning of respiratory equipment Medication Medication list reviewed:: Yes Taking medications 100% of the time:: Met Medication reassessment: Yes: Pt demonstrates correct technique timing for MDI, Yes: Pt demonstrates correct technique timing for DPI, Yes: Pt demonstrates correct technique timing for NEB and Yes: Pt demonstrates correct technique timing for spacer 60-day Reassessments:: Met Reassessment Notes & Comments:: Pt understands the importance of taking his meds 100% of the time. Pt understands the importance of a low sodium diet to help lower his BP's. Will continue to monitor. Diabetes Diabetes:: No Core Components - 90 DAYS Visit Session Number:: 18 Hypertension Hypertension Diagnosis:: Hypertension ICD-10 I10 Resting Blood Pressure:: 144/80 [place] [employer] Hypertension Guidelines Peak Exercise Blood Pressure:: 140/86 Outcomes/Goals: Able to verbalize/achieve optimal blood pressure <130/80 and Incorporates diet changes & exercise for blood pressure control by DC Interventions/plan: Instruct on optimal blood pressure, hypertension & medications and Instruct on effects of sodium, alcohol, stress, exercise &hypertension Tobacco - 90-Day Tobacco Program Goals Tobacco Use: Non-smoker Exacerbation Mgmt & Airway Clearance Bronchial Hygiene Plan: Yes: Pt demonstrates correctly for effective cough, Yes: Pt demo correct for CPT, Yes: Pt demo correct for device, Yes: Pt demo correct for NS nasal spray, Yes: Pt demo correct for sputum management, Yes: Pt demo correct for improved hydration, Yes: Pt demo correct for hand hygiene, Yes: Pt demo correct for evalute sputum, Yes: Pt demo correct for verbalize when to call MD and Yes: Pt demo correct for cleaning of respiratory equipment Medication Medication reassessment: Yes: Pt demonstrates correct technique timing for MDI, Yes: Pt demonstrates correct technique timing for DPI, Yes: Pt demonstrates correct technique timing for NEB and Yes: Pt demonstrates correct technique timing for spacer Diabetes Diabetes:: No Core Components - Final Visit Session Number:: 18 Hypertension Hypertension Diagnosis:: Hypertension ICD-10 I10 Resting Blood Pressure:: 144/80 [place] [employer] Hypertension Guidelines Peak Exercise Blood Pressure:: 140/86 Outcomes/Goals: Able to verbalize/achieve optimal blood pressure <130/80 and Incorporates diet changes & exercise for blood pressure control by DC Tobacco - Final Tobacco Program Goals Tobacco Use: Non-smoker Exacerbation Mgmt & Airway Clearance Bronchial Hygiene Plan: Yes: Pt demonstrates correctly for effective cough, Yes: Pt demo correct for CPT, Yes: Pt demo correct for device, Yes: Pt demo correct for NS nasal spray, Yes: Pt demo correct for sputum management, Yes: Pt demo correct for improved hydration, Yes: Pt demo correct for hand hygiene, Yes: Pt demo correct for evalute sputum, Yes: Pt demo correct for verbalize when to call MD and Yes: Pt demo correct for cleaning of respiratory equipment Medication Medication reassessment: Yes: Pt demonstrates correct technique timing for MDI, Yes: Pt demonstrates correct technique timing for DPI, Yes: Pt demonstrates correct technique timing for NEB and Yes: Pt demonstrates correct technique timing for spacer Diabetes Diabetes:: No Patient Health Questionnaire PHQ-9 Screening 60-Day Re-eval Assessment: 1. Little interest or pleasure in doing things: More than half the days 2. Feeling down, depressed, or hopeless: Not at all 3. Trouble falling or staying asleep, or sleeping too much: Several days 4. Feeling tired or having little energy: Several days 5. Poor appetite or overeating: Not at all 6. Feeling bad about yourself -- or that you are a failure or have let yourself or your family down: Not at all 7. Trouble concentrating on things, such as reading the newspaper or watching television: Not at all 8. Moving or speaking so slowly that other people could have noticed. Or the opposite - being so fidgety or restless that you have been moving around a lot more than usual: Not at all 9. Thoughts that you would be better off , or of hurting yourself in some way: Not at all How difficult have these problems made it for you to do your work, take care of things at home, or get along with other people?: Somewhat difficult Total Score: 4 Knowledge Questionaire (BCKQ) Information Information: [place] COPD Knowledge Questionnaire (BCKQ) This questionnaire is designed to find out what you know about your lung problem. It should be completed without help form anyone else. This usually takes between 10 and 20 minutes. Your answers will help us to find out what information you need to help you to understand and manage your lung condition. [place] which you think is the correct answer. Self-Efficacy 6-Item Scale 60-Day Re-eval Assessment: We would like to know how confident you are in doing certain activities. Please select your confidence level for: Fatigue Select Number: 7 Physical Discomfort or Pain Select Number: 7 Emotional Distress Select Number: 9 Other Symptoms or Health Problems Select Number: 8 Different Tasks and Activities Select Number: 7 Medication Select Number: 7 Total Score:: 7 Nutrition Survey Nutrition Survey Instructions Scoring Instructions
[2024-08-06 07:36] VITALS: BP 140/86; BP 144/80; O2SAT 89; BMI 30.9
== END 2024-09-04 23:59 ==
LOC: PR 13:00
PROVIDERS: PCP Internal Medicine
DX: J96.11 Chronic respiratory failure with hypoxia (principal); J84.10 Pulmonary fibrosis, unspecified; I27.21 Secondary pulmonary arterial hypertension
CPT/HCPCS: 97150; G0239

== ENCOUNTER 2024-09-30 13:00 | Outpatient (RCR) | payer MEDICARE, SELFPAY ==
[2024-08-06 07:36] VITALS: BMI 30.9
[2024-09-05 02:13] VITALS: BP 140/86; BP 144/80; BMI 30.9
--- NOTE | 2024-09-07 08:04 | PR.ITP_ITS ---
Exercise - Initial Assessment Visit Session Number:: 25 Physician Prescribed Exercise Modalities: Treadmill, [employer] Airdyne AD-7 and Sci[employer] Stepper Current METSs:: 2.8 Target HR:: 111 (89-111) Current RPD:: 3 Maximum Exercise HR:: 91 Resting Blood Pressure: 160/92 Maximum Exercise Blood Pressure: 160/92 Minimum SpO2 with exercise: 90 EKG Type: SB to arrythmis with frequent ectopy. Nutrition/Wt Mgmt - Initial Visit Session Number:: 25 Weight Management Admit Height:: 6 ft 1 in Admit Weight:: 235 lb Admit BMI:: 30.9 Nutrition/Wt Mgmt - 30-Day Visit Date of Eval: 09/07/24 Session Number:: 25 Weight Management Height: 6 ft 1 in Weight:: 235 lb BMI: 30.9 Nutrition/Wt Mgmt - 60-Day Visit Session Number:: 25 Weight Management Height: 6 ft 1 in Weight:: 235 lb BMI: 30.9 Weight Goals Progress:: Progressing (Pt has attended nutrition class. Pt encouraged to eat a low sodium heart healthy diet.) Nutrition/Wt Mgmt - 90-Day Visit Date of Eval: 09/07/24 Session Number:: 25 Weight Management Height: 6 ft 1 in Weight:: 235 lb BMI: 30.9 Weight Goals Progress:: Progressing (Pt has attended nutrition class. Pt encouraged to eat a low sodium heart healthy diet.) Nutrition/Wt Mgmt - Final Visit Session Number:: 25 Weight Management Height: 6 ft 1 in Weight:: 235 lb BMI: 30.9 Psychosocial - Initial Assess Visit Session Number:: 25 Problems/Goals History of Emotional Disorders: None Psychosocial Goals: 1. Patient is free from overwhelming symtoms of depression (or anxiety, 2. Identifies personal stressors & states the strategies for managing, 3. Identifies activities to decrease isolation and/or symptoms of, 4. Improved psychosocial coping skills., 5. Verbalizes coping strategies., 6. Adequate treatment of depression. and 7. Improved Q.O.L. Psychosocial Test Tool Used:: Pulmonary QOL and PHQ-9 Questionnaire Referred to MD for counseling:: No Referral to Behavioral Health PS - Interventions: Yes: Attend Stress Management Classes Intervention/Plan: See List Interventions/Plan:: Assess stressors,coping strategies & signs of derpression on admission, Instruct/assist pt to develop coping & personal stress Mgt strategies, Refer to Behavioral Health if appropriate, Refer to Physician if appropriate, Instruct patient to recognize signs & symptoms of depression and Instruct patient to recog Psychosocial - 30-Day Visit Date of Eval: 09/07/24 Session Number:: 25 Problems/Goals History of Emotional Disorders: None Psychosocial Goals: 1. Patient is free from overwhelming symtoms of depression (or anxiety, 2. Identifies personal stressors & states the strategies for managing, 3. Identifies activities to decrease isolation and/or symptoms of, 4. Improved psychosocial coping skills., 5. Verbalizes coping strategies., 6. Adequate treatment of depression. and 7. Improved Q.O.L. Psychosocial Test Tool Used:: Pulmonary QOL and PHQ-9 Questionnaire Referred to MD for counseling:: No Referral to Behavioral Health PS - Interventions: Yes: Attend Stress Management Classes Plan Interventions/Plan:: Assess stressors,coping strategies & signs of derpression o n admission, Instruct/assist pt to develop coping & personal stress Mgt strategies, Refer to Behavioral Health if appropriate, Refer to Physician if appropriate, Instruct patient to recognize signs & symptoms of depression and Instruct patient to recog Psychosocial - 60-Day Visit Session Number:: 25 Problems/Goals History of Emotional Disorders: None Psychosocial Goals: 1. Patient is free from overwhelming symtoms of depression (or anxiety, 2. Identifies personal stressors & states the strategies for managing, 3. Identifies activities to decrease isolation and/or symptoms of, 4. Improved psychosocial coping skills., 5. Verbalizes coping strategies., 6. Adequate treatment of depression. and 7. Improved Q.O.L. Psychosocial Test Tool Used:: Pulmonary QOL and PHQ-9 Questionnaire Referred to MD for counseling:: No Referral to Behavioral Health PS - Interventions: Yes: Attend Stress Management Classes Plan Interventions/Plan:: Assess stressors,coping strategies & signs of derpression on admission, Instruct/assist pt to develop coping & personal stress Mgt strategies, Refer to Behavioral Health if appropriate, Refer to Physician if appropriate, Instruct patient to recognize signs & symptoms of depression and Instruct patient to recog Psychosocial - 90-Day Visit Date of Eval: 09/07/24 Session Number:: 25 Problems/Goals History of Emotional Disorders: None Psychosocial Goals: 1. Patient is free from overwhelming symtoms of depression (or anxiety, 2. Identifies personal stressors & states the strategies for managing, 3. Identifies activities to decrease isolation and/or symptoms of, 4. Improved psychosocial coping skills., 5. Verbalizes coping strategies., 6. Adequate treatment of depression. and 7. Improved Q.O.L. Psychosocial Test Tool Used:: Pulmonary QOL and PHQ-9 Questionnaire Referred to MD for counseling:: No Referral to Behavioral Health PS - Interventions: Yes: Attend Stress Management Classes Plan Interventions/Plan:: Assess stressors,coping strategies & signs of derpression on admission, Instruct/assist pt to develop coping & personal stress Mgt strategies, Refer to Behavioral Health if appropriate, Refer to Physician if appropriate, Instruct patient to recognize signs & symptoms of depression and Instruct patient to recog Psychosocial - Final Assess Visit Session Number:: 25 Problems/Goals History of Emotional Disorders: None Psychosocial Goals: 1. Patient is free from overwhelming symtoms of depression (or anxiety, 2. Identifies personal stressors & states the strategies for managing, 3. Identifies activities to decrease isolation and/or symptoms of, 4. Improved psychosocial coping skills., 5. Verbalizes coping strategies., 6. Adequate treatment of depression. and 7. Improved Q.O.L. Psychosocial Test Tool Used:: Pulmonary QOL and PHQ-9 Questionnaire Referred to MD for counseling:: No Referral to Behavioral Health PS - Interventions: Yes: Attend Stress Management Classes Plan Interventions/Plan:: Assess stressors,coping strategies & signs of derpression on admission, Instruct/assist pt to develop coping & personal stress Mgt strategies, Refer to Behavioral Health if appropriate, Refer to Physician if appropriate, Instruct patient to recognize signs & symptoms of depression and Instruct patient to recog Oxygen & Oxygen Titration Init Visit Session Number:: 25 Initial Assessment SpO2:: 90 Oxygen & Oxygen Titration 30D Visit Date of Eval: 09/07/24 Session Number:: 25 Reassessment SpO2:: 90 Oxygen & Oxygen Titration 60D Visit Date of Eval: 09/07/24 Session Number:: 25 Reassessment SpO2:: 90 Oxygen & Oxygen Titration 90D Visit Date of Eval: 09/07/24 Session Number:: 25 Reassessment Oxygen & Oxygen Titration 90 days: Continuous Home Use and Oxygen w/activity SpO2:: 90 Oxygen & Oxygen Titration RAMESH Visit Date of Eval: 09/07/24 Session Number:: 25 Reassessment SpO2:: 90 Core Components - Initial Visit Session Number:: 25 Hypertension Hypertension Diagnosis:: Hypertension ICD-10 I10 BP: 160/92 [employer] Hypertension Guidelines Blood Pressure: 160/92 Outcomes/Goals: Able to verbalize/achieve optimal blood pressure <130/80, Incorporates diet changes & exercise for blood pressure control by DC and Other additional outcomes/goals Tobacco - Initial Assessment Tobacco Program Goals Tobacco Use: Non-smoker Diabetes Diabetes:: No Core Components - 30 DAYS Visit Date of Eval: 09/07/24 Session Number:: 25 Hypertension Hypertension Diagnosis:: Hypertension ICD-10 I10 Resting Blood Pressure:: 160/92 [employer] Hypertension Guidelines Peak Exercise Blood Pressure:: 160/92 Outcomes/Goals: Able to verbalize/achieve optimal blood pressure <130/80, Incorporates diet changes & exercise for blood pressure control by DC and Other additional outcomes/goals Interventions/plan: Instruct on optimal blood pressure, hypertension & medications, Instruct on effects of sodium, alcohol, stress, exercise &hypertension and Other additional plan/interventions 30 day Reassessments:: Progressing Reassessment Notes & Comments:: Pt BP's have been elevated. Staff to send report to pt's physician. Tobacco - 30-Day Tobacco Program Goals Tobacco Use: Non-smoker Exacerbation Mgmt & Airway Clearance Bronchial Hygiene Plan: Yes: Pt demonstrates correctly for effective cough, Yes: Pt demo correct for CPT, Yes: Pt demo correct for device, Yes: Pt demo correct for NS nasal spray, Yes: Pt demo correct for sputum management, Yes: Pt demo correct for improved hydration, Yes: Pt demo correct for hand hygiene, Yes: Pt demo correct for evalute sputum, Yes: Pt demo correct for verbalize when to call MD and Yes: Pt demo correct for cleaning of respiratory equipment Medication Medication reassessment: Yes: Pt demonstrates correct technique timing for MDI, Yes: Pt demonstrates correct technique timing for DPI, Yes: Pt demonstrates correct technique timing for NEB and Yes: Pt demonstrates correct technique timing for spacer Diabetes Diabetes:: No Core Components - 60 DAYS Visit Session Number:: 25 Hypertension Hypertension Diagnosis:: Hypertension ICD-10 I10 Resting Blood Pressure:: 160/92 [employer] Hypertension Guidelines Peak Exercise Blood Pressure:: 160/92 Outcomes/Goals: Able to verbalize/achieve optimal blood pressure <130/80, Incorporates diet changes & exercise for blood pressure control by DC and Other additional outcomes/goals Interventions/plan: Instruct on optimal blood pressure, hypertension & medications, Instruct on effects of sodium, alcohol, stress, exercise &hypertension and Other additional plan/interventions 60 day Reassessments:: Progressing Reassessment Notes & Comments:: Pt BP's have been elevated. Staff to send report to pt's physician. Tobacco - 60-Day Tobacco Program Goals Tobacco Use: Non-smoker Exacerbation Mgmt & Airway Clearance Bronchial Hygiene Plan: Yes: Pt demonstrates correctly for effective cough, Yes: Pt demo correct for CPT, Yes: Pt demo correct for device, Yes: Pt demo correct for NS nasal spray, Yes: Pt demo correct for sputum management, Yes: Pt demo correct for improved hydration, Yes: Pt demo correct for hand hygiene, Yes: Pt demo correct for evalute sputum, Yes: Pt demo correct for verbalize when to call MD and Yes: Pt demo correct for cleaning of respiratory equipment Medication Medication reassessment: Yes: Pt demonstrates correct technique timing for MDI, Yes: Pt demonstrates correct technique timing for DPI, Yes: Pt demonstrates correct technique timing for NEB and Yes: Pt demonstrates correct technique timing for spacer Diabetes Diabetes:: No Core Components - 90 DAYS Visit Date of [facility]: 09/07/24 Session Number:: 25 Hypertension Hypertension Diagnosis:: Hypertension ICD-10 I10 Resting Blood Pressure:: 160/92 [employer] Hypertension Guidelines Peak Exercise Blood Pressure:: 160/92 Outcomes/Goals: Able to verbalize/achieve optimal blood pressure <130/80, Incorporates diet changes & exercise for blood pressure control by DC and Other additional outcomes/goals Interventions/plan: Instruct on optimal blood pressure, hypertension & medications, Instruct on effects of sodium, alcohol, stress, exercise &hypertension and Other additional plan/interventions 90 day Reassessments:: Progressing Reassessment Notes & Comments:: Pt BP's have been elevated. Staff to send report to pt's physician. Tobacco - 90-Day Tobacco Program Goals Tobacco Use: Non-smoker Exacerbation Mgmt & Airway Clearance Reassessment: Demonstrates knowledge of O2 Rx at rest, Demonstrates knowledge of O2 Rx with exercise, Using O2 as prescribed, Has home O2 as prescribed and Uses port O2 as prescribed Bronchial Hygiene Plan: Yes: Pt demonstrates correctly for effective cough, Yes: Pt demo correct for CPT, Yes: Pt demo correct for device, Yes: Pt demo correct for NS nasal spray, Yes: Pt demo correct for sputum management, Yes: Pt demo correct for improved hydration, Yes: Pt demo correct for hand hygiene, Yes: Pt demo correct for evalute sputum, Yes: Pt demo correct for verbalize when to call MD and Yes: Pt demo correct for cleaning of respiratory equipment Medication Medication list reviewed:: Yes Taking medications 100% of the time:: Met Medication reassessment: Yes: Pt demonstrates correct technique timing for MDI, Yes: Pt demonstrates correct technique timing for DPI, Yes: Pt demonstrates correct technique timing for NEB and Yes: Pt demonstrates correct technique timing for spacer Diabetes Diabetes:: No Core Components - Final Visit Session Number:: 25 Hypertension Hypertension Diagnosis:: Hypertension ICD-10 I10 Resting Blood Pressure:: 160/92 [employer] Hypertension Guidelines Peak Exercise Blood Pressure:: 160/92 Outcomes/Goals: Able to verbalize/achieve optimal blood pressure <130/80, Incorporates diet changes & exercise for blood pressure control by DC and Other additional outcomes/goals Tobacco - Final Tobacco Program Goals Tobacco Use: Non-smoker Exacerbation Mgmt & Airway Clearance Bronchial Hygiene Plan: Yes: Pt demonstrates correctly for effective cough, Yes: Pt demo correct for CPT, Yes: Pt demo correct for device, Yes: Pt demo correct for NS nasal spray, Yes: Pt demo correct for sputum management, Yes: Pt demo correct for improved hydration, Yes: Pt demo correct for hand hygiene, Yes: Pt demo correct for evalute sputum, Yes: Pt demo correct for verbalize when to call MD and Yes: Pt demo correct for cleaning of respiratory equipment Medication Medication reassessment: Yes: Pt demonstrates correct technique timing for MDI, Yes: Pt demonstrates correct technique timing for DPI, Yes: Pt demonstrates correct technique timing for NEB and Yes: Pt demonstrates correct technique timing for spacer Diabetes Diabetes:: No Patient Health Questionnaire PHQ-9 Screening 90-Day Re-eval Assessment: 1. Little interest or pleasure in doing things: More than half the days 2. Feeling down, depressed, or hopeless: Not at all 3. Trouble falling or staying asleep, or sleeping too much: Several days 4. Feeling tired or having little energy: Several days 5. Poor appetite or overeating: Not at all 6. Feeling bad about yourself -- or that you are a failure or have let yourself or your family down: Not at all 7. Trouble concentrating on things, such as reading the newspaper or watching television: Not at all 8. Moving or speaking so slowly that other people could have noticed. Or the opposite - being so fidgety or restless that you have been moving around a lot more than usual: Not at all 9. Thoughts that you would be better off , or of hurting yourself in some way: Not at all How difficult have these problems made it for you to do your work, take care of things at home, or get along with other people?: Somewhat difficult Total Score: 4 Knowledge Questionaire (BCKQ) Information Information: [place] COPD Knowledge Questionnaire (BCKQ) This questionnaire is designed to find out what you know about your lung problem. It should be completed without help form anyone else. This usually takes between 10 and 20 minutes. Your answers will help us to find out what information you need to help you to understand and manage your lung condition. [employer] which you think is the correct answer. Self-Efficacy 6-Item Scale 90-Day Re-eval Assessment: We would like to know how confident you are in doing certain activities. Please select your confidence level for: Fatigue Select Number: 7 Physical Discomfort or Pain Select Number: 7 Emotional Distress Select Number: 9 Other Symptoms or Health Problems Select Number: 8 Different Tasks and Activities Select Number: 7 Medication Select Number: 7 Total Score:: 7 Nutrition Survey Nutrition Survey Instructions Scoring Instructions
[2024-09-07 08:18] VITALS: BP 160/92; O2SAT 90; BMI 30.9
--- NOTE | 2024-10-01 07:23 | PCM.PR.TP ---
Exercise - Initial Assessment Visit Session Number:: 32 Physician Prescribed Exercise Modalities: Treadmill, [employer] Airdyne AD-7 and [employer] Stepper Current METSs:: 2.8 Resting Blood Pressure: 144/84 Maximum Exercise Blood Pressure: 150/96 Minimum SpO2 with exercise: 90 (Pt is on 4 liters with exercise.) EKG Type: SB to NSR with rare ectopy. Nutrition/Wt Mgmt - Initial Visit Session Number:: 32 Weight Management Admit Height:: 6 ft 1 in Admit Weight:: 230 lb Admit BMI:: 30.3 Nutrition/Wt Mgmt - 30-Day Visit Date of Eval: 10/01/24 Session Number:: 32 Weight Management Height: 6 ft 1 in Weight:: 230 lb BMI: 30.3 Nutrition/Wt Mgmt - 60-Day Visit Session Number:: 32 Weight Management Height: 6 ft 1 in Weight:: 230 lb BMI: 30.3 Nutrition/Wt Mgmt - 90-Day Visit Session Number:: 32 Weight Management Height: 6 ft 1 in Weight:: 230 lb BMI: 30.3 Nutrition/Wt Mgmt - Final Visit Date of Eval: 10/01/24 Session Number:: 32 Weight Management Height: 6 ft 1 in Weight:: 230 lb BMI: 30.3 Weight Goals Progress:: Progressing (Pt has attended nutrition class. Pt has lost 5 lbs this month.) Psychosocial - Initial Assess Visit Session Number:: 32 Problems/Goals History of Emotional Disorders: None Psychosocial Goals: 1. Patient is free from overwhelming symtoms of depression (or anxiety, 2. Identifies personal stressors & states the strategies for managing, 4. Improved psychosocial coping skills., 5. Verbalizes coping strategies., 6. Adequate treatment of depression. and 7. Improved Q.O.L. Psychosocial Test Tool Used:: Pulmonary QOL and PHQ-9 Questionnaire Referred to MD for counseling:: No Referral to Behavioral Health PS - Interventions: Yes: Attend Stress Management Classes Intervention/Plan: See List Interventions/Plan:: Assess stressors,coping strategies & signs of derpression on admission, Instruct/assist pt to develop coping & personal stress Mgt strategies, Refer to Behavioral Health if appropriate, Refer to Physician if appropriate, Instruct patient to recognize signs & symptoms of depression and Instruct patient to recog Comments:: Pt denies any psychosocial issues at this time. Psychosocial - 30-Day Visit Date of Eval: 10/01/24 Session Number:: 32 Problems/Goals History of Emotional Disorders: None Psychosocial Goals: 1. Patient is free from overwhelming symtoms of depression (or anxiety, 2. Identifies personal stressors & states the strategies for managing, 4. Improved psychosocial coping skills., 5. Verbalizes coping strategies., 6. Adequate treatment of depression. and 7. Improved Q.O.L. Psychosocial Test Tool Used:: Pulmonary QOL and PHQ-9 Questionnaire Referred to MD for counseling:: No Referral to Behavioral Health PS - Interventions: Yes: Attend Stress Management Classes Plan Interventions/Plan:: Assess stressors,coping strategies & signs of derpression on admission, Instruct/assist pt to develop coping & personal stress Mgt strategies, Refer to Behavioral Health if appropriate, Refer to Physician if appropriate, Instruct patient to recognize signs & symptoms of depression and Instruct patient to recog Comments:: Pt denies any psychosocial issues at this time. Psychosocial - 60-Day Visit Session Number:: 32 Problems/Goals History of Emotional Disorders: None Psychosocial Goals: 1. Patient is free from overwhelming symtoms of depression (or anxiety, 2. Identifies personal stressors & states the strategies for managing, 4. Improved psychosocial coping skills., 5. Verbalizes coping strategies., 6. Adequate treatment of depression. and 7. Improved Q.O.L. Psychosocial Test Tool Used:: Pulmonary QOL and PHQ-9 Questionnaire Referred to MD for counseling:: No Referral to Behavioral Health PS - Interventions: Yes: Attend Stress Management Classes Plan Interventions/Plan:: Assess stressors,coping strategies & signs of derpression on admission, Instruct/assist pt to develop coping & personal stress Mgt strategies, Refer to Behavioral Health if appropriate, Refer to Physician if appropriate, Instruct patient to recognize signs & symptoms of depression and Instruct patient to recog Comments:: Pt denies any psychosocial issues at this time. Psychosocial - 90-Day Visit Session Number:: 32 Problems/Goals History of Emotional Disorders: None Psychosocial Goals: 1. Patient is free from overwhelming symtoms of depression (or anxiety, 2. Identifies personal stressors & states the strategies for managing, 4. Improved psychosocial coping skills., 5. Verbalizes coping strategies., 6. Adequate treatment of depression. and 7. Improved Q.O.L. Psychosocial Test Tool Used:: Pulmonary QOL and PHQ-9 Questionnaire Referred to MD for counseling:: No Referral to Behavioral Health PS - Interventions: Yes: Attend Stress Management Classes Plan Interventions/Plan:: Assess stressors,coping strategies & signs of derpression on admission, Instruct/assist pt to develop coping & personal stress Mgt strategies, Refer to Behavioral Health if appropriate, Refer to Physician if appropriate, Instruct patient to recognize signs & symptoms of depression and Instruct patient to recog Comments:: Pt denies any psychosocial issues at this time. Psychosocial - Final Assess Visit Date of Eval: 10/01/24 Session Number:: 32 Problems/Goals History of Emotional Disorders: None Psychosocial Goals: 1. Patient is free from overwhelming symtoms of depression (or anxiety, 2. Identifies personal stressors & states the strategies for managing, 4. Improved psychosocial coping skills., 5. Verbalizes coping strategies., 6. Adequate treatment of depression. and 7. Improved Q.O.L. Psychosocial Test Tool Used:: Pulmonary QOL and PHQ-9 Questionnaire Referred to MD for counseling:: No Referral to Behavioral Health PS - Interventions: Yes: Attend Stress Management Classes Plan Interventions/Plan:: Assess stressors,coping strategies & signs of derpression on admission, Instruct/assist pt to develop coping & personal stress Mgt strategies, Refer to Behavioral Health if appropriate, Refer to Physician if appropriate, Instruct patient to recognize signs & symptoms of depression and Instruct patient to recog Comments:: Pt denies any psychosocial issues at this time. Oxygen & Oxygen Titration Init Visit Session Number:: 32 Initial Assessment SpO2:: 90 (Pt is on 4 liters with exercise.) Oxygen & Oxygen Titration 30D Visit Date of Eval: 10/01/24 Session Number:: 32 Reassessment SpO2:: 90 (Pt is on 4 liters with exercise.) Oxygen & Oxygen Titration 60D Visit Date of Eval: 10/01/24 Session Number:: 32 Reassessment SpO2:: 90 (Pt is on 4 liters with exercise.) Oxygen & Oxygen Titration 90D Visit Date of Eval: 10/01/24 Session Number:: 32 Reassessment SpO2:: 90 (Pt is on 4 liters with exercise.) Oxygen & Oxygen Titration RAMESH Visit Date of Eval: 10/01/24 Session Number:: 32 Reassessment Oxygen & Oxygen Titration Final: Oxygen on Discharge, Continuous Home Use and Oxygen w/activity SpO2:: 90 (Pt is on 4 liters with exercise.) Core Components - Initial Visit Session Number:: 32 Hypertension Hypertension Diagnosis:: Hypertension ICD-10 I10 BP: 144/84 [place] [employer] Hypertension Guidelines Blood Pressure: 150/96 Outcomes/Goals: Able to verbalize/achieve optimal blood pressure <130/80 and Incorporates diet changes & exercise for blood pressure control by DC Comment: Pt encouraged to eat a low sodium diet and lose weight to help lower BP's. BP's are slightly elevated per AHA normal limits. Report has been sent to pt's physician Tobacco - Initial Assessment Tobacco Program Goals Tobacco Use: Non-smoker Diabetes Diabetes:: No Core Components - 30 DAYS Visit Date of Eval: 10/01/24 Session Number:: 32 Hypertension Hypertension Diagnosis:: Hypertension ICD-10 I10 Resting Blood Pressure:: 144/84 [place] [employer] Hypertension Guidelines Peak Exercise Blood Pressure:: 150/96 Outcomes/Goals: Able to verbalize/achieve optimal blood pressure <130/80 and Incorporates diet changes & exercise for blood pressure control by DC Comment: Pt encouraged to eat a low sodium diet and lose weight to help lower BP's. BP's are slightly elevated per AHA normal limits. Report has been sent to pt's physician Tobacco - 30-Day Tobacco Program Goals Tobacco Use: Non-smoker Exacerbation Mgmt & Airway Clearance Bronchial Hygiene Plan: Yes: Pt demonstrates correctly for effective cough, Yes: Pt demo correct for CPT, Yes: Pt demo correct for device, Yes: Pt demo correct for NS nasal spray, Yes: Pt demo correct for sputum management, Yes: Pt demo correct for improved hydration, Yes: Pt demo correct for hand hygiene, Yes: Pt demo correct for evalute sputum, Yes: Pt demo correct for verbalize when to call MD and Yes: Pt demo correct for cleaning of respiratory equipment Medication Medication reassessment: Yes: Pt demonstrates correct technique timing for MDI, Yes: Pt demonstrates correct technique timing for DPI, Yes: Pt demonstrates correct technique timing for NEB and Yes: Pt demonstrates correct technique timing for spacer Diabetes Diabetes:: No [employer] Components - 60 DAYS Visit Session Number:: 32 Hypertension Hypertension Diagnosis:: Hypertension ICD-10 I10 Resting Blood Pressure:: 144/84 [place] [employer] Hypertension Guidelines Peak Exercise Blood Pressure:: 150/96 Outcomes/Goals: Able to verbalize/achieve optimal blood pressure <130/80 and Incorporates diet changes & exercise for blood pressure control by DC Comment: Pt encouraged to eat a low sodium diet and lose weight to help lower BP's. BP's are slightly elevated per AHA normal limits. Report has been sent to pt's physician Tobacco - 60-Day Tobacco Program Goals Tobacco Use: Non-smoker Exacerbation Mgmt & Airway Clearance Bronchial Hygiene Plan: Yes: Pt demonstrates correctly for effective cough, Yes: Pt demo correct for CPT, Yes: Pt demo correct for device, Yes: Pt demo correct for NS nasal spray, Yes: Pt demo correct for sputum management, Yes: Pt demo correct for improved hydration, Yes: Pt demo correct for hand hygiene, Yes: Pt demo correct for evalute sputum, Yes: Pt demo correct for verbalize when to call MD and Yes: Pt demo correct for cleaning of respiratory equipment Medication Medication reassessment: Yes: Pt demonstrates correct technique timing for MDI, Yes: Pt demonstrates correct technique timing for DPI, Yes: Pt demonstrates correct technique timing for NEB and Yes: Pt demonstrates correct technique timing for spacer Diabetes Diabetes:: No [employer] Components - 90 DAYS Visit Session Number:: 32 Hypertension Hypertension Diagnosis:: Hypertension ICD-10 I10 Resting Blood Pressure:: 144/84 [place] [employer] Hypertension Guidelines Peak Exercise Blood Pressure:: 150/96 Outcomes/Goals: Able to verbalize/achieve optimal blood pressure <130/80 and Incorporates diet changes & exercise for blood pressure control by DC Comment: Pt encouraged to eat a low sodium diet and lose weight to help lower BP's. BP's are slightly elevated per AHA normal limits. Report has been sent to pt's physician Tobacco - 90-Day Tobacco Program Goals Tobacco Use: Non-smoker Exacerbation Mgmt & Airway Clearance Bronchial Hygiene Plan: Yes: Pt demonstrates correctly for effective cough, Yes: Pt demo correct for CPT, Yes: Pt demo correct for device, Yes: Pt demo correct for NS nasal spray, Yes: Pt demo correct for sputum management, Yes: Pt demo correct for improved hydration, Yes: Pt demo correct for hand hygiene, Yes: Pt demo correct for evalute sputum, Yes: Pt demo correct for verbalize when to call MD and Yes: Pt demo correct for cleaning of respiratory equipment Medication Medication reassessment: Yes: Pt demonstrates correct technique timing for MDI, Yes: Pt demonstrates correct technique timing for DPI, Yes: Pt demonstrates correct technique timing for NEB and Yes: Pt demonstrates correct technique timing for spacer Diabetes Diabetes:: No Core Components - Final Visit Date of Eval: 10/01/24 Session Number:: 32 Hypertension Hypertension Diagnosis:: Hypertension ICD-10 I10 Resting Blood Pressure:: 144/84 [place] [employer] Hypertension Guidelines Peak Exercise Blood Pressure:: 150/96 Outcomes/Goals: Able to verbalize/achieve optimal blood pressure <130/80 and Incorporates diet changes & exercise for blood pressure control by DC Comment: Pt encouraged to eat a low sodium diet and lose weight to help lower BP's. BP's are slightly elevated per AHA normal limits. Report has been sent to pt's physician Tobacco - Final Tobacco Program Goals Tobacco Use: Non-smoker Exacerbation Mgmt & Airway Clearance Final Assessment: Demonstrates knowledge of O2 Rx at rest, Demonstrates knowledge of O2 Rx with exercise, Using O2 as prescribed, Has home O2 as prescribed and Uses port O2 as prescribed Bronchial Hygiene Plan: Yes: Pt demonstrates correctly for effective cough, Yes: Pt demo correct for CPT, Yes: Pt demo correct for device, Yes: Pt demo correct for NS nasal spray, Yes: Pt demo correct for sputum management, Yes: Pt demo correct for improved hydration, Yes: Pt demo correct for hand hygiene, Yes: Pt demo correct for evalute sputum, Yes: Pt demo correct for verbalize when to call MD and Yes: Pt demo correct for cleaning of respiratory equipment Medication Medication list reviewed:: Yes Taking medications 100% of the time:: Met Medication reassessment: Yes: Pt demonstrates correct technique timing for MDI, Yes: Pt demonstrates correct technique timing for DPI, Yes: Pt demonstrates correct technique timing for NEB and Yes: Pt demonstrates correct technique timing for spacer Diabetes Diabetes:: No Patient Health Questionnaire PHQ-9 Screening Discharge Assessment: 1. Little interest or pleasure in doing things: More than half the days 2. Feeling down, depressed, or hopeless: Not at all 3. Trouble falling or staying asleep, or sleeping too much: Several days 4. Feeling tired or having little energy: Several days 5. Poor appetite or overeating: Not at all 6. Feeling bad about yourself -- or that you are a failure or have let yourself or your family down: Not at all 7. Trouble concentrating on things, such as reading the newspaper or watching television: Not at all 8. Moving or speaking so slowly that other people could have noticed. Or the opposite - being so fidgety or restless that you have been moving around a lot more than usual: Not at all 9. Thoughts that you would be better off , or of hurting yourself in some way: Not at all How difficult have these problems made it for you to do your work, take care of things at home, or get along with other people?: Somewhat difficult Total Score: 4 Knowledge Questionaire (BCKQ) Information Information: [place] COPD Knowledge Questionnaire (BCKQ) This questionnaire is designed to find out what you know about your lung problem. It should be completed without help form anyone else. This usually takes between 10 and 20 minutes. Your answers will help us to find out what information you need to help you to understand and manage your lung condition. [place] which you think is the correct answer. Self-Efficacy 6-Item Scale Discharge Assessment: We would like to know how confident you are in doing certain activities. Please select your confidence level for: Fatigue Select Number: 7 Physical Discomfort or Pain Select Number: 7 Emotional Distress Select Number: 9 Other Symptoms or Health Problems Select Number: 8 Different Tasks and Activities Select Number: 7 Medication Select Number: 7 Total Score:: 7 Nutrition Survey Nutrition Survey Instructions Scoring Instructions
[2024-10-01 07:34] VITALS: BP 144/84; BP 150/96; O2SAT 90; BMI 30.3
== END 2024-10-02 23:59 ==
LOC: PR 13:00
PROVIDERS: PCP Internal Medicine
DX: J96.11 Chronic respiratory failure with hypoxia (principal); J84.10 Pulmonary fibrosis, unspecified; I27.21 Secondary pulmonary arterial hypertension
CPT/HCPCS: 97150; G0239

== ENCOUNTER 2024-10-19 13:00 | Outpatient (RCR) | payer MEDICARE, SELFPAY ==
[2024-10-01 07:34] VITALS: BMI 30.3
[2024-10-03 01:16] VITALS: BP 144/84; BP 150/96; BMI 30.3
== END 2024-11-02 23:59 ==
LOC: PR 13:00
PROVIDERS: PCP Internal Medicine
DX: J96.11 Chronic respiratory failure with hypoxia (principal); J84.10 Pulmonary fibrosis, unspecified; I27.21 Secondary pulmonary arterial hypertension
CPT/HCPCS: 97150; G0239